=== PATIENT | female | born 1935 | race Caucasian/White ===

== ENCOUNTER → 2019-10-13 11:28 | Outpatient (BNVA) | payer MEDICARE, OTHER, SELFPAY | PROVIDERS: Family Provider Nurse Practitioner Family; PCP Nurse Practitioner Family; Visit Provider Internal Medicine Cardiovascular Disease | DX: E78.5 Hyperlipidemia, unspecified (principal) | CPT/HCPCS: 36415; 80048; 80061; 85025 ==

== ENCOUNTER 2019-10-20 15:03 | Outpatient (CLI) | payer MEDICARE, OTHER, SELFPAY ==
--- NOTE | 2019-10-24 22:48 | ONC FU_ITS ---
[facility] Patient Note Patient: Lilliam Truong Unit #: [id number]: 1935 Dictated By: Betty CooperDate of Visit: Oct 20, 2019 Onc MED Follow-Up/Prog Note Chief Complaint: Breast cancer. 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 She had presented in September 2010 with a lump in the right breast. She underwent bilateral diagnostic mammogram, which showed a 2.0 cm spiculated mass at the 8:30-9:00 position of the right breast. It was new compared to the previous study from 2005. The appearance was suspicious for malignancy. An ultrasound-guided core biopsy on 10/17/10 did confirm invasive ductal carcinoma, grade I/III. The tumor was ER/KS positive and negative for overexpression of HER2/jeaneth (0 by IHC). She underwent lumpectomy and sentinel axillary lymph node biopsy in January of 2011. Pathology from that specimen showed grade 3 invasive ductal carcinoma measuring 2.3 cm in greatest diameter. There was ductal carcinoma in situ, estimated at 5%. There was invasive carcinoma less than 1 mm to the deep margin and DCIS within 3 mm of the deep margin. One sentinel axillary lymph node showed no evidence of malignancy. The Oncotype DX was in the high intermediate range. She opted not to take adjuvant chemotherapy. She had started radiation to the right breast in March 2011, but she stopped within a very short time, I believe after the first treatment, because of perceived side effects. At that time she also had started adjuvant hormonal therapy with tamoxifen. She was not willing to take an aromatase inhibitor because of the risk of skeletal side effects. She unfortunately developed severe itching on the tamoxifen. I'm still not entirely certain what caused that, as the itching persisted for quite a while after she had stopped the medication. She eventually came to the conclusion that it was caused by a yeast infection, and she has managed it with dietary restrictions and probiotics. She has remained steadfastly opposed to taking an aromatase inhibitor, though I discussed with her on a number of occasions the fact that her breast cancer has not been adequately treated. She eventually did agree to a trial of therapy with raloxifene, but that was stopped because it made her breasts sore. She has since then just remained on observation. Her other medical illnesses include hypertension, hypercholesterolemia, and stage III chronic kidney disease. She has degenerative arthritis and osteoporosis. She also has been treated for gout in her left great toe. She is a nonsmoker. INTERIM HISTORY: She underwent a redo right total knee arthroplasty on 05/01/2017. She tolerated that procedure very well, although she subsequently did have some problems during her physical therapy. Her bilateral diagnostic mammogram on 11/17/2017 was BI-RADS 0, showing a focal asymmetry in the posterior midportion of the right breast measuring 8.2 mm. Right breast ultrasound showed scar formation in the 8:00 position 4 cm from the nipple, similar to the November 2016 study. There was no abnormality seen in the periareolar region of the right breast. Additional mammogram views of the right breast and limited breast ultrasound on 12/15/2017 was BI-RADS for, suspicious. Findings included persistent soft tissue nodule measuring 9.6 mm in the upper outer quadrant of the right breast. Ultrasound showed an irregular area of mixed echogenicity but predominantly decreased echogenicity measuring 1.0 x 1.4 cm corresponding to the mammographic abnormality. She was notified of the finding and immediately sought further evaluation with Dr. Hoff in [place]. She had additional evaluation at the breast center. Breast MRI was recommended, but for some reason it apparently was not able to be scheduled. Dr Edwards had seen her for a follow-up visit on 12/23/2017. At that point she declined biopsy. She later presented with increased back pain. A staging PET/CT on 04/10/2018 showed inflammatory periarticular activity at the right glenohumeral joint, but with no evidence for residual or recurrent malignancy. Bilateral breast activity was noted to be entirely unremarkable. Bilateral axillary lymph nodes appeared radiographically benign an FDG negative. There were no findings to indicate osseous metastatic disease. A 1 centimeter superior segment left lower lobe pulmonary nodule was FDG negative. It appeared benign, but close follow-up was recommended. After further follow-up by Dr. Hoff she ultimately did undergo ultrasound-guided core biopsy on 06/01/2018. Pathology showed ductal carcinoma in situ, nuclear grade 1. There was no invasive carcinoma identified. On 07/16/2018 she underwent excisional biopsy of the right breast mass under needle localization. Pathology on a cyst biopsy from the nasopharynx showed benign cystic cavity lined by respiratory type epithelium with associated lymphoid hyperplasia. There were no fungal elements identified. There was no evidence of malignancy. We did not receive any further records, but on her follow-up with Dr. Duncan she apparently had declined mastectomy. She apparently was also seen by medical oncologist, as she did start adjuvant hormonal therapy with anastrozole 1 mg daily, which is interesting, as she had adamantly refused it in my previous discussions with her. During followup she has had declining mobility due to problems with her right knee, and she has had an area of persistent nodularity in the right breast. There has been no documented progression of the breast cancer. Her surveillance right breast ultrasound on 04/13/2019 was BI-RADS 4c, moderate suspicion. Findings included an hypoechoic lesion at the 11:00 position of the right breast 3 cm from the nipple. It measured 5.0 x 2.8 x 4.2 mm. Ultrasound biopsy was recommended. A repeat diagnostic mammogram right unilateral mammogram and ultrasound at the [facility] in [place] on 05/26/2019 showed probably benign findings (BI-RADS category 3). A six-month follow-up study was recommended. Ms Truong presents today for an urgent, unscheduled visit for concerns of a knot in her left lower extremity. She states the knot is been there for a couple of weeks if not longer. She thinks that maybe it is getting smaller. She denies any pain with it. She is had no associated swelling redness warmth. There is been no lesion or drainage. She states Thursday she was just rubbing her leg and massaging it and felt the nodule. It is approximately large BB size. It is nontender on palpation. There is no redness or associated swelling. There is no lesion. It is only noted on palpation. There is no lower extremity swelling at all. She has good circulation her skin is warm and dry. She states she has no further problems. She has occasional hot flash which is normal. She states that she continues to have chronic hip and knee pain and that limits her mobility. She states she does can get around like she used to. She denies any fever or chills. States her appetite is good. She states she has good energy with this can act on due to the pain. She states her pain is controlled with her current pain medications however. She denies any other concerns besides the knot in her leg. Dr. Edwards did assess this area as well and agrees with the plan of care ???see below. Her ECOG is 3. Past Medical History: Cancer (breast) Past Surgical History: Tumor removal in 2018 Right knee replacement in 2017 Allergies: iodine contrast Medications: AmLODIPine Besylate 1 (5 mg) Tablet Oral daily Anastrozole 1 Tablet (of 1 mg) Oral daily Cholecalciferol 1 (5000 Units) Capsule Oral daily CoQ10 1 Capsule Oral daily Effexor XR 1 Tablet (of 150 mg) Capsule SR 24 HR Oral daily PRN Metoprolol Tartrate 1 (25 mg) Tablet Oral b.i.d. Multivitamin 1 Liquid Oral daily Probiotic Capsule Oral PRN Xlear Sinus Care [employer] Solution Nasal PRN Family History: Social History: Ms. Truong is and she is retired. Ms. Truong has never smoked. She has no history of drinking. Ms. Truong reports the following support systems: lives alone, lives in own house, and adequate transportation available for expected visits. Her diet consists of regular meals. She indicates her activity level as: daily activities. Review Of Symptoms: Constitutional Denies fevers, chills, night sweats, excessive fatigue or weight loss. Allergic/Immunologic No reactions. Eyes Denies significant visual changes. No diplopia. No amaurosis. ENMT Denies changes in hearing, sore throat, mouth sores, difficulty or changes in swallowing ability, and/or sinus drainage. Endocrine No diabetes, thyroid disease or hormone replacement. Denies hot flashes or night sweats. Hematologic/Lymphatic Denies easy bruising or bleeding. The patient denies any tender or palpable lymph nodes. Respiratory Denies dyspnea on exertion, chest pain. Denies orthopnea. Cardiovascular Denies anginal chest pain, palpitations or orthopnea. Gastrointestinal Denies nausea, vomiting, diarrhea, GI bleeding, or constipation. Denies change in bowel habits and/or stool color, no heartburn or early satiety. Genitourinary (F) No hematuria, hesitancy, incontinence, vaginal bleeding, discharge or other problems with urination. Musculoskeletal Denies joint pain, swelling or redness. No decreased range of motion. knot on lower left leg . Has been there for a couple of weeks- I think it may be getting smaller . Integumentary Denies chronic rashes, inflammation, ulcerations or skin changes. Neurologic Denies headache, blurred vision, and no areas of focal weakness or numbness. Normal for her gait-requires assistance due to chronic knee and hip pain. No sensory problems. Psychiatric Denies insomnia, depression, pza or mood swings. Vital Signs: Performed on Oct 20, 2019 15:34 Height - 65.00 in Weight - 214.0 lbs (HIGH) BSA - 2.04 sq.m BMI - 35.61 (HIGH) Temperature - 98.2 F (LOW) Pulse - 88 /min Respiration - 24 /min BP - 138/82 mm(hg) O2 Sat - 96 % Pain - 0,2 - Ambulatory/capable of all self-care, unable to perform any work activities. Up and about more than 50% of waking hours. (ECOG) Physical Examination: Constitutional Alert, oriented, no acute distress. Skin pink, warm and dry. Head Normocephalic; atraumatic. Eyes Conjunctivae and sclerae are clear and without icterus. Pupils are reactive and equal. Neck Supple without masses or thyromegaly. No jugular venous distension. Hematologic/Lymphatic No petechiae or purpura. No tender or palpable lymph nodes in the cervical, supraclavicular, or axillary area. Respiratory Lungs are clear to auscultation without rhonchi or wheezing. Cardiovascular Regular rate and rhythm of heart without murmurs,clicks, gallops or rubs. Abdomen Non-tender, non-distended, no masses, ascites. Good bowel sounds noted in all quads. No guarding or rebound tenderness. No pulsatile masses. Back/Spine Non-tender to palpation. Extremities No visible deformities, no cyanosis, clubbing or edema. Pulses 4+ and equal bilaterally. There is noted to be a large BB size nodule essentially superficial in the lower extremity-with no associated redness, swelling or drainage. It is not tender on palpation. There are no other abnormalities noted. Musculoskeletal No tenderness or swelling, normal range of motion without obvious weakness. Integumentary No rashes or lesions. Neurologic No sensory or motor deficits, normal cerebellar function, Presented in a wheelchair today but was able to transfer to chair and seat of her car without any signs of obvious/acute weakness. Psychiatric Alert and oriented times three. Coherent speech. Verbalizes understanding of our discussions today. Impression: 1. Patient with incompletely treated grade 3 infiltrating ductal carcinoma the right breast, stage IIA, ER/KS positive and HER-2/jeaneth negative. Oncotype DX was high intermediate range. She underwent lumpectomy and sentinel ight axillary lymph node biopsy in December 2010. She opted not to take adjuvant chemotherapy. She stopped radiation after the first treatment. 2. I did attempt adjuvant hormonal therapy, but she had poor tolerance for tamoxifen and she was unwilling to even try an aromatase inhibitor. 3. Her surveillance mammogram/ultrasound of the right breast in November 2017 was BI-RADS 0. Additional studies on 12/15/2017 were read as BI-RADS 4, suspicious, and biopsy was recommended. She was then seen by Dr. Hoff, and she had additional evaluation at the breast center in [place]. In May 2018 she was confirmed by core needle biopsy to have grade 1 ductal carcinoma in situ. 4. 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 It measured 1.0 cm. There was associated carcinoma in situ. The margins were negative, but with invasive carcinoma within 0.2 cm from the caudal and cranial margins. 5. She was recommended to undergo mastectomy, which she declined. 6. She then began adjuvant hormonal therapy with anastrozole 1 mg daily. Her other medical illnesses include: 7. Hypertension. 8. Hyperlipidemia. 9. Late stage III chronic kidney disease. 10. Degenerative arthritis 11. Osteoporosis and vitamin D deficiency. 12. Gout. 13. She underwent redo right total knee arthroplasty in April 2017. She has had ongoing problems with the right knee following that surgery. She has been taking adjuvant hormonal therapy with anastrozole 1 mg daily. She has been tolerating it well. She continues to have multiple complaints, the most significant being her right knee problems and her complaints of chronic mucus production which she attributes to her previous breast radiation. She has some persistent nodularity in the right breast just above the nipple areolar complex. A recent surveillance right breast ultrasound was BI-RADS 4c, moderate suspicion. She then had further evaluation at the breast center in [place]. Her repeat diagnostic mammogram/ultrasound was felt to show probably benign findings ( BI-RADS 3), and a 6-month follow-up study was recommended. Thus far she has been able to continue the anastrozole with acceptable toxicity, though she has ongoing problems with her right knee following the redo total knee arthroplasty in April 2017. She has recent onset of pain, swelling, and redness in the left foot, appearance of which was very suggestive of acute gout. That seems to have resolved. Her concern today is a knot on the left lower extremity. She states is been there for a week or 2 and she thinks maybe is getting some smaller. It is not red, warm or swollen. There is no sign of lesion or drainage. It is noted on palpation only. Plan: 1. Continue adjuvant hormonal therapy with anastrozole 1 mg daily. 2. Monitor nodule on lower leg and call if swellling, redness, pain or warmth arise. 3. Call if nodule increases in size. 4. Plan to see back as scheduled unless otherwise needed. 5. Ms Truong was instructed to call us in the interim if questions or problems arise. Signed By: Betty Cooper-, AOCNP Vinod Edwards MD <<Signature on File>>
== END 2019-10-20 15:04 | disposition home or self-care (01) ==
LOC: ONCMED 15:12
PROVIDERS: Family Provider Nurse Practitioner Family; PCP Nurse Practitioner Family; Visit Provider Nurse Practitioner
DX: R22.42 Localized swelling, mass and lump, left lower limb (principal); C50.511 Malignant neoplasm of lower-outer quadrant of right female breast; I12.9 Hypertensive chronic kidney disease with stage 1 through stage 4 chronic kidney disease, or unspecified chronic kidney disease; N18.3 Chronic kidney disease, stage 3 (moderate); E78.00 Pure hypercholesterolemia, unspecified; M19.90 Unspecified osteoarthritis, unspecified site; M81.0 Age-related osteoporosis without current pathological fracture; Z96.651 Presence of right artificial knee joint; G89.29 Other chronic pain; Z17.0 Estrogen receptor positive status [ER+]; Z79.811 Long term (current) use of aromatase inhibitors; Z92.3 Personal history of irradiation
CPT/HCPCS: G0463

== ENCOUNTER 2019-12-13 12:20 | Outpatient (CLI) | payer MEDICARE, OTHER, SELFPAY ==
--- NOTE | 2019-12-17 14:51 | ONC FU_ITS ---
Dr. Edwards Patient Follow-Up Note Patient: Lilliam Truong Unit #: [id number]: 1935 Dicatated By: Vinod Edwards M.D.Date of Visit:Dec 13, 2019 Onc Med Follow-up/Prog Note Chief Complaint: Breast cancer. 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 She had presented in September 2010 with a lump in the right breast. She underwent bilateral diagnostic mammogram, which showed a 2.0 cm spiculated mass at the 8:30-9:00 position of the right breast. It was new compared to the previous study from 2005. The appearance was suspicious for malignancy. An ultrasound-guided core biopsy on 10/17/10 did confirm invasive ductal carcinoma, grade I/III. The tumor was ER/NH positive and negative for overexpression of HER2/jeaneth (0 by IHC). She underwent lumpectomy and sentinel axillary lymph node biopsy in January of 2011. Pathology from that specimen showed grade 3 invasive ductal carcinoma measuring 2.3 cm in greatest diameter. There was ductal carcinoma in situ, estimated at 5%. There was invasive carcinoma less than 1 mm to the deep margin and DCIS within 3 mm of the deep margin. One sentinel axillary lymph node showed no evidence of malignancy. The Oncotype DX was in the high intermediate range. She opted not to take adjuvant chemotherapy. She had started radiation to the right breast in March 2011, but she stopped within a very short time, I believe after the first treatment, because of perceived side effects. At that time she also had started adjuvant hormonal therapy with tamoxifen. She was not willing to take an aromatase inhibitor because of the risk of skeletal side effects. She unfortunately developed severe itching on the tamoxifen. I'm still not entirely certain what caused that, as the itching persisted for quite a while after she had stopped the medication. She eventually came to the conclusion that it was caused by a yeast infection, and she has managed it with dietary restrictions and probiotics. She has remained steadfastly opposed to taking an aromatase inhibitor, though I discussed with her on a number of occasions the fact that her breast cancer has not been adequately treated. She eventually did agree to a trial of therapy with raloxifene, but that was stopped because it made her breasts sore. She has since then just remained on observation. Her other medical illnesses include hypertension, hypercholesterolemia, and stage III chronic kidney disease. She has degenerative arthritis and osteoporosis. She also has been treated for gout in her left great toe. She is a nonsmoker. INTERIM HISTORY: She underwent a redo right total knee arthroplasty on 05/01/2017. She tolerated that procedure very well, although she subsequently did have some problems during her physical therapy. Her bilateral diagnostic mammogram on 11/17/2017 was BI-RADS 0, showing a focal asymmetry in the posterior midportion of the right breast measuring 8.2 mm. Right breast ultrasound showed scar formation in the 8:00 position 4 cm from the nipple, similar to the November 2016 study. There was no abnormality seen in the periareolar region of the right breast. Additional mammogram views of the right breast and limited breast ultrasound on 12/15/2017 was BI-RADS for, suspicious. Findings included persistent soft tissue nodule measuring 9.6 mm in the upper outer quadrant of the right breast. Ultrasound showed an irregular area of mixed echogenicity but predominantly decreased echogenicity measuring 1.0 x 1.4 cm corresponding to the mammographic abnormality. She was notified of the finding and immediately sought further evaluation with Dr. Hoff in [place]. She had additional evaluation at the breast center. Breast MRI was recommended, but for some reason it apparently was not able to be scheduled. I had seen her for a follow-up visit on 12/23/2017. At that point she declined biopsy. She later presented with increased back pain. A staging PET/CT on 04/10/2018 showed inflammatory periarticular activity at the right glenohumeral joint, but with no evidence for residual or recurrent malignancy. Bilateral breast activity was noted to be entirely unremarkable. Bilateral axillary lymph nodes appeared radiographically benign an FDG negative. There were no findings to indicate osseous metastatic disease. A 1 centimeter superior segment left lower lobe pulmonary nodule was FDG negative. It appeared benign, but close follow-up was recommended. After further follow-up by Dr. Hoff she ultimately did undergo ultrasound-guided core biopsy on 06/01/2018. Pathology showed ductal carcinoma in situ, nuclear grade 1. There was no invasive carcinoma identified. On 07/16/2018 she underwent excisional biopsy of the right breast mass under needle localization. Pathology on a cyst biopsy from the nasopharynx showed benign cystic cavity lined by respiratory type epithelium with associated lymphoid hyperplasia. There were no fungal elements identified. There was no evidence of malignancy. I did not receive any further records, but on her follow-up with Dr. Duncan she apparently had declined mastectomy. She apparently was also seen by medical oncologist, as she did start adjuvant hormonal therapy with anastrozole 1 mg daily, which is interesting, as she had adamantly refused it in my previous discussions with her. During followup she has had declining mobility due to problems with her right knee, and she has had an area of persistent nodularity in the right breast. There has been no documented progression of the breast cancer. Her surveillance right breast ultrasound on 04/13/2019 was BI-RADS 4c, moderate suspicion. Findings included an hypoechoic lesion at the 11:00 position of the right breast 3 cm from the nipple. It measured 5.0 x 2.8 x 4.2 mm. Ultrasound biopsy was recommended. A repeat diagnostic mammogram right unilateral mammogram and ultrasound at the [facility] in [place] on 05/26/2019 showed probably benign findings (BI-RADS category 3). A six-month follow-up study was recommended. She is seen for a follow-up visit. She has been feeling okay, though she continues to have very limited activity due to her right knee pain, and she says she has lost stamina. It is getting her more depressed. Her ECOG score is 3. She says she is eating only about half as much as she used to. She does not have fever or night sweats. She still complains that the mucus is driving her crazy. She continues to cough up thick white sputum. She does not complain of shortness of breath. She has had a little bit of chest pain. She has noticed that her heart rate has been faster. She has no GI complaints. She has had some episodes of bladder incontinence while she is lying down. In addition to the knee pain, she also has some pain in the right shoulder. She has no focal neurologic symptoms. Medications: AmLODIPine Besylate 1 (5 mg) Tablet Oral daily, Anastrozole 1 Tablet (of 1 mg) Oral daily, Cholecalciferol 1 (5000 Units) Capsule Oral daily, CoQ10 1 Capsule Oral daily, Effexor XR 1 Tablet (of 150 mg) Capsule SR 24 HR Oral daily PRN, Metoprolol Tartrate 1 (25 mg) Tablet Oral b.i.d., Multivitamin 1 Liquid Oral daily, Probiotic Capsule Oral PRN, Xlear Sinus Care Cabery Solution Nasal PRN Allergies: iodine contrast Review of Systems: Constitutional - Her energy is low. She has limited activity due to her knee pain. Her appetite is okay. Her weight is down 5 pounds from last visit. No fever, chills, hot flashes, or night sweats. ECOG score is 3, ENMT - She has constant drainage described as thick white sputum. No mouth sores. She has excessive secretions. No sore throat or difficulty swallowing, Hematologic/Lymphatic - She bruises easily, Respiratory - No shortness of breath. No cough. No pleuritic pain or hemoptysis, Cardiovascular - She has had a little bit left sided chest pain and she feels like her heart rate is higher than normal, Gastrointestinal - No nausea or vomiting. No heartburn or acid reflux. No diarrhea or constipation. No blood in the stool or black stools, Genitourinary (F) - No dysuria or hematuria. No urinary frequency. She has had some episodes of incontinence while lying down, Musculoskeletal - She has pain in her right knee and in her left shoulder, Integumentary - No skin complications, Neurologic - No headache or dizziness. No numbness/paresthesias or other focal neurologic symptoms, Psychiatric - No anxiety. She is more depressed. No insomnia. Vital Signs: Performed on Dec 13, 2019 12:35 Height - 65.00 in Weight - 209.8 lbs (LOW) BSA - 2.02 sq.m BMI - 34.91 (HIGH) Temperature - 99.1 F (HIGH) Pulse - 85 /min Respiration - 24 /min BP - 130/70 mm(hg) O2 Sat - 97 % Pain - 0 Physical Examination: Constitutional - She looks pretty good generally, Eyes - Sclerae nonicteric. Conjunctivae clear, ENMT - No lesions noted in the oral cavity, Hematologic/Lymphatic - No cervical or clavicular adenopathy, Respiratory - Lungs are clear, Cardiovascular - Heart rhythm is regular. There is a II/ systolic murmur. There is no gallop or rub noted, Breasts - There is an area of linear thickening in the right breast just superior to the nipple areolar complex, which I suspect is related to prior surgery. It does not feel suspicious for a mass. There are no other breast masses noted. There is no axillary adeopathy noted, Abdomen - Soft. Liver and spleen are not enlarged. There is no abdominal mass or ascites noted and there is no inguinal adenopathy, Extremities - No edema. Dorsalis pedis pulses are palpable bilaterally, Neurologic - No focal neurologic deficits noted. Impression: 1. Patient with incompletely treated grade 3 infiltrating ductal carcinoma the right breast, stage IIA, ER/NH positive and HER-2/jeaneth negative. Oncotype DX was high intermediate range. She underwent lumpectomy and sentinel ight axillary lymph node biopsy in December 2010. She opted not to take adjuvant chemotherapy. She stopped radiation after the first treatment. 2. I did attempt adjuvant hormonal therapy, but she had poor tolerance for tamoxifen and she was unwilling to even try an aromatase inhibitor. 3. Her surveillance mammogram/ultrasound of the right breast in November 2017 was BI-RADS 0. Additional studies on 12/15/2017 were read as BI-RADS 4, suspicious, and biopsy was recommended. She was then seen by Dr. Hoff, and she had additional evaluation at the breast center in [place]. In May 2018 she was confirmed by core needle biopsy to have grade 1 ductal carcinoma in situ. 4. 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 It measured 1.0 cm. There was associated carcinoma in situ. The margins were negative, but with invasive carcinoma within 0.2 cm from the caudal and cranial margins. 5. She was recommended to undergo mastectomy, which she declined. 6. She then began adjuvant hormonal therapy with anastrozole 1 mg daily. Her other medical illnesses include: 7. Hypertension. 8. Hyperlipidemia. 9. Late stage III chronic kidney disease. 10. Degenerative arthritis 11. Osteoporosis and vitamin D deficiency. 12. Gout. 13. She underwent redo right total knee arthroplasty in April 2017. She has had ongoing problems with the right knee following that surgery. She has been taking adjuvant hormonal therapy with anastrozole 1 mg daily. She has been tolerating it well. She continues to have multiple complaints, the most significant being her right knee problems and her complaints of chronic mucus production which she attributes to her previous breast radiation. She has some persistent nodularity in the right breast just above the nipple areolar complex. A recent surveillance right breast ultrasound was BI-RADS 4c, moderate suspicion. She then had further evaluation at the breast center in [place]. Her repeat diagnostic mammogram/ultrasound was felt to show probably benign findings ( BI-RADS 3), and a 6-month follow-up study was recommended. During followup she has ongoing problems with her right knee following the redo total knee arthroplasty in April 2017. It has severely limited her activity and she has been showing gradual decline in her performance status. She also has required treatment for acute gout. However, she has been able to tolerate the anastrozole with acceptable toxicity, and thus far there has been no evidence of recurrence/progression of the breast cancer. Plan: She continues adjuvant hormonal therapy with anastrozole 1 mg daily. She will have repeat mammogram later this week. She will have further evaluation only as indicated. I will tentatively plan a follow-up visit in 3 months. Signed By: Vinod Edwards M.D. <<Signature on File>>
== END 2019-12-13 12:21 | disposition home or self-care (01) ==
LOC: ONCMED 12:25
PROVIDERS: Family Provider Nurse Practitioner Family; PCP Nurse Practitioner Family; Visit Provider Internal Medicine Medical Oncology
DX: C50.511 Malignant neoplasm of lower-outer quadrant of right female breast (principal); Z17.0 Estrogen receptor positive status [ER+]; I12.9 Hypertensive chronic kidney disease with stage 1 through stage 4 chronic kidney disease, or unspecified chronic kidney disease; N18.3 Chronic kidney disease, stage 3 (moderate); E78.00 Pure hypercholesterolemia, unspecified; M19.90 Unspecified osteoarthritis, unspecified site; M81.0 Age-related osteoporosis without current pathological fracture; F32.9 Major depressive disorder, single episode, unspecified; E78.5 Hyperlipidemia, unspecified; E55.9 Vitamin D deficiency, unspecified; M10.9 Gout, unspecified; Z79.811 Long term (current) use of aromatase inhibitors; Z92.3 Personal history of irradiation; Z96.651 Presence of right artificial knee joint
CPT/HCPCS: 99214

== ENCOUNTER 2019-12-15 11:02 | Outpatient (CLI) | payer MEDICARE, OTHER, SELFPAY ==
--- NOTE | 2019-12-15 11:19 | MM_ITS ---
WS: [id number] BILATERAL DIGITAL DIAGNOSTIC MAMMOGRAM MAMMOGRAPHY WITH CAD CLINICAL INFORMATION: HX OF BREAST CA;R92.8OTHER ABNL/INCONCL FINDING ON IMAG BANDAR HISTORY: Prior history of breast biopsy and surgery right breast. COMPARISON: December 15, 2017 TECHNIQUE: Bilateral CC, MLO, and ML views. FINDINGS: Scattered fibroglandular densities bilaterally. Several asymmetric nodular densities right breast sim ilar in appearance to 2018 along the posterior nipple line. Left breast is unchanged. Lucent centered calcifications. Ultrasound right breast is pending ULTRASOUND BREAST RIGHT TECHNIQUE: Ultrasound right breast focused area of concern. CLINICAL INFORMATION: HX OF BREAST CA;R92.8OTHER ABNL/INCONCL FINDING ON IMAG BANDAR COMPARISON: 2017 and FINDINGS: Ultrasound right breast upper-outer quadrant. At the 10:00 position. Again seen is irregular hypoecho ic lesion measuring 1.5 x 0.5 x 1.0 CM. This appears increased in size compared to 2019 and recommend further evaluation with ultrasound-guided biopsy given suspicious appearance. MM/[id number] IMPRESSION: BI-RADS: 4C-Suspicious: Moderate FOLLOW UP: US Guided Biopsy Recommended
== END 2019-12-15 11:03 | disposition home or self-care (01) ==
LOC: RADSHAW 11:04
PROVIDERS: Family Provider Nurse Practitioner Family; PCP Nurse Practitioner Family; Visit Provider Internal Medicine Medical Oncology
DX: R92.8 Other abnormal and inconclusive findings on diagnostic imaging of breast (principal); Z85.3 Personal history of malignant neoplasm of breast; N64.9 Disorder of breast, unspecified
CPT/HCPCS: 77066

== ENCOUNTER 2019-12-19 09:12 | Outpatient (CLI) | payer MEDICARE, OTHER, SELFPAY ==
--- NOTE | 2019-12-19 | US_ITS ---
BILATERAL DIGITAL DIAGNOSTIC MAMMOGRAM MAMMOGRAPHY WITH CAD CLINICAL INFORMATION: HX OF BREAST CA;R92.8OTHER ABNL/INCONCL FINDING ON IMAG BANDAR HISTORY: Prior history of breast biopsy and surgery right breast. COMPARISON: December 15, 2017 TECHNIQUE: Bilateral CC, MLO, and ML views. FINDINGS: Scattered fibroglandular densities bilaterally. Several asymmetric nodular densities right breast similar in appearance to 2018 along the posterior nipple line. Left breast is unchanged. Lucent centered calcifications. Ultrasound right breast is pending ULTRASOUND BREAST RIGHT TECHNIQUE: Ultrasound right breast focused area of concern. CLINICAL INFORMATION: HX OF BREAST CA;R92.8OTHER ABNL/INCONCL FINDING ON IMAG BANDAR COMPARISON: 2017 and FINDINGS: Ultrasound right breast upper-outer quadrant. At the 10:00 position. Again seen is irregular hypoechoic lesion measuring 1.5 x 0.5 x 1.0 CM. This appears increased in size compared to 2019 and recommend further evaluation with ultrasound-guided biopsy given suspicious appearance. IMPRESSION: BI-RADS: 4C-Suspicious: Moderate FOLLOW UP: US Guided Biopsy Recommended MTDD
== END 2019-12-19 09:13 | disposition home or self-care (01) ==
LOC: RAD 09:16
PROVIDERS: Family Provider Nurse Practitioner Family; PCP Nurse Practitioner Family; Visit Provider Internal Medicine Medical Oncology
DX: N63.11 Unspecified lump in the right breast, upper outer quadrant (principal); Z85.3 Personal history of malignant neoplasm of breast
CPT/HCPCS: 76642

== ENCOUNTER 2020-03-14 12:23 | Outpatient (CLI) | payer MEDICARE, OTHER, SELFPAY ==
[2020-03-14 12:44] LABS: Basophils # 0.1 10^3/uL (0.0-0.1); Basophils % 0.7 %; Eosinophils # 0.1 10^3/uL (0.0-0.8); Eosinophils % 1.3 %; Hematocrit 41.2 % (37.0-47.0); Hemoglobin 12.8 g/dL (11.5-15.3); Lymphocytes # 1.5 10^3/uL (0.8-4.8); Lymphocytes % 18.6 %; Mean Corpuscular HGB Conc 31.1 g/dL (30.0-36.0); Mean Corpuscular Hemoglobin 31.5 pg (28.0-34.0); Mean Corpuscular Volume 101.5 fL (81-99); Mean Platelet Volume 10.2 fL (7.4-10.4); Monocytes # 0.7 10^3/uL (0.2-0.9); Monocytes % 8.6 %; Neutrophils # 5.8 10^3/uL (1.8-7.7); Neutrophils % 70.4 %; Nucleated Red Blood Cells % 0 %; Platelet Count 289 10^3/cmm (130-400); Red Blood Count 4.06 10^6/uL (4.1-5.3); Red Cell Distribution Width 13.5 % (12.1-15.1); White Blood Count 8.2 10^3/uL (4.0-10.0)
[2020-03-14 13:20] LABS: 25 Hydroxy Vitamin D 32 ng/mL (30-100); Alanine Aminotransferase 13 U/L (0-33); Albumin Level 3.8 g/dL (3.5-5.2); Alkaline Phosphatase 51 IU/L (35-105); Anion Gap 15.2 (5-19); Aspartate Amino Transferase 18 U/L (0-32); Blood Urea Nitrogen 16 mg/dL (8-23); Calcium 9.6 mg/dL (8.5-10.5); Carbon Dioxide 27 mmol/L (22-29); Chloride 104 mmol/L (98-107); Globulin 3.6 g/dL (1.3-4.6); Glucose 113 mg/dL (65-115); Osmolality Calculated 291 mOsm/kg (285-295); Potassium 4.2 mmol/L (3.5-5.1); Sodium 142 mmol/L (136-145); Total Bilirubin 0.3 mg/dL (0.15-1.2); Total Protein 7.4 g/dL (6.6-8.7)
--- NOTE | 2020-03-17 10:51 | ONC FU_ITS ---
Dr. Edwards Patient Follow-Up Note Patient: Lilliam Truong Unit #: [id number]: 1935 Dicatated By: Vinod Edwards M.D.Date of Visit:Mar 14, 2020 Onc Med Follow-up/Prog Note Chief Complaint: Breast cancer. 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 She had presented in September 2010 with a lump in the right breast. She underwent bilateral diagnostic mammogram, which showed a 2.0 cm spiculated mass at the 8:30-9:00 position of the right breast. It was new compared to the previous study from 2005. The appearance was suspicious for malignancy. An ultrasound-guided core biopsy on 10/17/10 did confirm invasive ductal carcinoma, grade I/III. The tumor was ER/NC positive and negative for overexpression of HER2/jeaneth (0 by IHC). She underwent lumpectomy and sentinel axillary lymph node biopsy in January of 2011. Pathology from that specimen showed grade 3 invasive ductal carcinoma measuring 2.3 cm in greatest diameter. There was ductal carcinoma in situ, estimated at 5%. There was invasive carcinoma less than 1 mm to the deep margin and DCIS within 3 mm of the deep margin. One sentinel axillary lymph node showed no evidence of malignancy. The Oncotype DX was in the high intermediate range. She opted not to take adjuvant chemotherapy. She had started radiation to the right breast in March 2011, but she stopped within a very short time, I believe after the first treatment, because of perceived side effects. At that time she also had started adjuvant hormonal therapy with tamoxifen. She was not willing to take an aromatase inhibitor because of the risk of skeletal side effects. She unfortunately developed severe itching on the tamoxifen. I'm still not entirely certain what caused that, as the itching persisted for quite a while after she had stopped the medication. She eventually came to the conclusion that it was caused by a yeast infection, and she has managed it with dietary restrictions and probiotics. She has remained steadfastly opposed to taking an aromatase inhibitor, though I discussed with her on a number of occasions the fact that her breast cancer has not been adequately treated. She eventually did agree to a trial of therapy with raloxifene, but that was stopped because it made her breasts sore. She has since then just remained on observation. Her other medical illnesses include hypertension, hypercholesterolemia, and stage III chronic kidney disease. She has degenerative arthritis and osteoporosis. She also has been treated for gout in her left great toe. She is a nonsmoker. INTERIM HISTORY: She underwent a redo right total knee arthroplasty on 05/01/2017. She tolerated that procedure very well, although she subsequently did have some problems during her physical therapy. Her bilateral diagnostic mammogram on 11/17/2017 was BI-RADS 0, showing a focal asymmetry in the posterior midportion of the right breast measuring 8.2 mm. Right breast ultrasound showed scar formation in the 8:00 position 4 cm from the nipple, similar to the November 2016 study. There was no abnormality seen in the periareolar region of the right breast. Additional mammogram views of the right breast and limited breast ultrasound on 12/15/2017 was BI-RADS for, suspicious. Findings included persistent soft tissue nodule measuring 9.6 mm in the upper outer quadrant of the right breast. Ultrasound showed an irregular area of mixed echogenicity but predominantly decreased echogenicity measuring 1.0 x 1.4 cm corresponding to the mammographic abnormality. She was notified of the finding and immediately sought further evaluation with Dr. Hoff in [place]. She had additional evaluation at the breast center. Breast MRI was recommended, but for some reason it apparently was not able to be scheduled. I had seen her for a follow-up visit on 12/23/2017. At that point she declined biopsy. She later presented with increased back pain. A staging PET/CT on 04/10/2018 showed inflammatory periarticular activity at the right glenohumeral joint, but with no evidence for residual or recurrent malignancy. Bilateral breast activity was noted to be entirely unremarkable. Bilateral axillary lymph nodes appeared radiographically benign an FDG negative. There were no findings to indicate osseous metastatic disease. A 1 centimeter superior segment left lower lobe pulmonary nodule was FDG negative. It appeared benign, but close follow-up was recommended. After further follow-up by Dr. Hoff she ultimately did undergo ultrasound-guided core biopsy on 06/01/2018. Pathology showed ductal carcinoma in situ, nuclear grade 1. There was no invasive carcinoma identified. On 07/16/2018 she underwent excisional biopsy of the right breast mass under needle localization. Pathology on a cyst biopsy from the nasopharynx showed benign cystic cavity lined by respiratory type epithelium with associated lymphoid hyperplasia. There were no fungal elements identified. There was no evidence of malignancy. I did not receive any further records, but on her follow-up with Dr. Duncan she apparently had declined mastectomy. She apparently was also seen by medical oncologist, as she did start adjuvant hormonal therapy with anastrozole 1 mg daily, which is interesting, as she had adamantly refused it in my previous discussions with her. During followup she has had declining mobility due to problems with her right knee, and she has had an area of persistent nodularity in the right breast. There has been no documented progression of the breast cancer. Her surveillance right breast ultrasound on 04/13/2019 was BI-RADS 4c, moderate suspicion. Findings included an hypoechoic lesion at the 11:00 position of the right breast 3 cm from the nipple. It measured 5.0 x 2.8 x 4.2 mm. Ultrasound biopsy was recommended. A repeat diagnostic mammogram right unilateral mammogram and ultrasound at the [facility] in [place] on 05/26/2019 showed probably benign findings (BI-RADS category 3). A six-month follow-up study was recommended. She is seen for a follow-up visit. She has been feeling about the same. She has very limited activity because of her knee problems. As result, she has lost strength and stamina. Her ECOG score is 3. She has good appetite. She has not had fever, night sweats, or hot flashes. She continues to have problems with mucus in her throat and associated cough. She does not complain of shortness of breath or chest pain. She has no GI or complaints. Lately she has been having lower back pain with activity, and she also has pain in her right shoulder. She does not complain of headache or dizziness. She has no focal neurologic symptoms. She has been having itching in the anterior tibial area of her right leg. Medications: AmLODIPine Besylate 1 (5 mg) Tablet Oral daily, Anastrozole 1 Tablet (of 1 mg) Oral daily, Cholecalciferol 1 (5000 Units) Capsule Oral daily, CoQ10 1 Capsule Oral daily, Effexor XR 1 Tablet (of 150 mg) Capsule SR 24 HR Oral daily PRN, Metoprolol Tartrate 1 (25 mg) Tablet Oral b.i.d., Multivitamin 1 Liquid Oral daily, Probiotic Capsule Oral PRN, Vitamin D3 1 Tablet Oral daily, Xlear Sinus Care [place] Solution Nasal PRN Allergies: iodine contrast Review of Systems: Constitutional - She has no energy. She has very limited activity. 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 Her appetite is good and weight is down about 4 pounds. No fever, night sweats, or hot flashes. ECOG score is 3, ENMT - No sinus congestion/drainage. No mouth sores. No sore throat or difficulty swallowing, Hematologic/Lymphatic - No abnormal bruising or bleeding, Respiratory - No shortness of breath. She still has cough associated with mucus in her throat. No pleuritic pain or hemoptysis, Cardiovascular - No angina pain. No palpitations, Gastrointestinal - No nausea or vomiting. No heartburn or acid reflux. No diarrhea or constipation. No blood in the stool or black stools, Genitourinary (F) - No dysuria or hematuria. No urinary frequency. No urgency or incontinence, Musculoskeletal - She has pain in her knees. Lately she has been having low back pain with activity, and she also has pain in her right shoulder, Integumentary - No skin complications, Neurologic - No headache or dizziness. No numbness or tingling. No other focal neurologic symptoms, Psychiatric - No anxiety or depression. No insomnia. Vital Signs: Performed on Mar 14, 2020 13:59 Height - 65.00 in Weight - 205.2 lbs (LOW) BSA - 2.00 sq.m BMI - 34.15 (HIGH) Temperature - 98.7 F Pulse - 64 /min Respiration - 24 /min BP - 138/66 mm(hg) O2 Sat - 97 % Pain - 0 Physical Examination: Constitutional - She has poor mobility. She othewise looks pretty good generally, Eyes - Sclerae nonicteric. Conjunctivae clear, ENMT - No lesions noted in the oral cavity, Hematologic/Lymphatic - No cervical or clavicular adenopathy, Respiratory - Lungs are clear, Cardiovascular - Heart rhythm is regular. There is a II/ systolic murmur. There is no gallop or rub noted, Breasts - There is just a very small residual nodule palpable in the upper outer right breast near the nipple areolar complex. There is no other breast mass noted. There is no axillary adenopathy, Abdomen - Soft. Liver and spleen are not enlarged. There is no abdominal mass or ascites noted and there is no inguinal adenopathy, Extremities - No edema. Dorsalis pedis pulses are palpable bilaterally, Integumentary - There is no apparent skin eruption, Neurologic - No focal neurologic deficits noted. Lab/Imaging: Test performed on Mar 14, 2020 12:34 Sodium 142 mmol/L Vitamin D (25-Hydroxy), Total 32 ng/mL Potassium 4.2 mmol/L Chloride 104 mmol/L CO2 27 mmol/L Anion Gap 15.2 BUN 16 mg/dL Creatinine 1.9 mg/dL Cr Clearance (Est) 32.97 mL/min Glucose 113 mg/dL Calcium 9.6 mg/dL Protein, Total 7.4 g/dL Albumin 3.8 g/dL Globulin 3.6 g/dL Bilirubin, Total 0.3 mg/dL ALT (SGPT) 13 U/L AST (SGOT) 18 U/L Alkaline Phosphatase 51 IU/L WBC 8.2 10 3/uL RBC 4.06 10 6/uL HGB 12.8 g/dL HCT 41.2 % MCV 101.5 fL MCH 31.5 pg MCHC 31.1 g/dL RDW 13.5 % Platelet Count 289 10 3/cmm MPV 10.2 fL Neutrophils 5.8 10 3/uL Lymphocytes 1.5 10 3/uL Monocytes 0.7 10 3/uL Eosinophils 0.1 10 3/uL Basophils 0.1 10 3/uL Neutrophil % 70.4 % Lymphocyte % 18.6 % Monocyte % 8.6 % Eosinophil % 1.3 % Basophils % 0.7 % NRBC % 0 % Impression: 1. Patient with incompletely treated grade 3 infiltrating ductal carcinoma the right breast, stage IIA, ER/NC positive and HER-2/jeaneth negative. Oncotype DX was high intermediate range. She underwent lumpectomy and sentinel ight axillary lymph node biopsy in December 2010. She opted not to take adjuvant chemotherapy. She stopped radiation after the first treatment. 2. I did attempt adjuvant hormonal therapy, but she had poor tolerance for tamoxifen and she was unwilling to even try an aromatase inhibitor. 3. Her surveillance mammogram/ultrasound of the right breast in November 2017 was BI-RADS 0. Additional studies on 12/15/2017 were read as BI-RADS 4, suspicious, and biopsy was recommended. She was then seen by Dr. Hoff, and she had additional evaluation at the breast center in [place]. In May 2018 she was confirmed by core needle biopsy to have grade 1 ductal carcinoma in situ. 4. 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 It measured 1.0 cm. There was associated carcinoma in situ. The margins were negative, but with invasive carcinoma within 0.2 cm from the caudal and cranial margins. 5. She was recommended to undergo mastectomy, which she declined. 6. She then began adjuvant hormonal therapy with anastrozole 1 mg daily. Her other medical illnesses include: 7. Hypertension. 8. Hyperlipidemia. 9. Late stage III chronic kidney disease. 10. Degenerative arthritis 11. Osteoporosis and vitamin D deficiency. 12. Gout. 13. She underwent redo right total knee arthroplasty in April 2017. She has had ongoing problems with the right knee following that surgery. She has been taking adjuvant hormonal therapy with anastrozole 1 mg daily. She has been tolerating it well. She continues to have multiple complaints, the most significant being her right knee problems and her complaints of chronic mucus production which she attributes to her previous breast radiation. She has some persistent nodularity in the right breast just above the nipple areolar complex. A recent surveillance right breast ultrasound was BI-RADS 4c, moderate suspicion. She then had further evaluation at the breast center in [place]. Her repeat diagnostic mammogram/ultrasound was felt to show probably benign findings ( BI-RADS 3), and a 6-month follow-up study was recommended. During followup she had ongoing problems with her right knee following the redo total knee arthroplasty in April 2017. Associated with that she has had very limited activity and she has been showing gradual decline in her performance status. During that time she also required treatment for acute gout. However, she has been able to tolerate the anastrozole with acceptable toxicity, and thus far there is been no obvious recurrence/progression of the breast cancer. Plan: She continues adjuvant hormonal therapy with anastrozole 1 mg daily. I will tentatively plan a follow-up visit in 3 months. Signed By: Vinod Edwards M.D. <<Signature on File>>
== END 2020-03-14 12:24 | disposition home or self-care (01) ==
LOC: ONCMED 12:28
PROVIDERS: Visit Provider Internal Medicine Medical Oncology
DX: C50.511 Malignant neoplasm of lower-outer quadrant of right female breast (principal); Z17.0 Estrogen receptor positive status [ER+]; M1A.0720 Idiopathic chronic gout, left ankle and foot, without tophus (tophi); R22.42 Localized swelling, mass and lump, left lower limb; I10 Essential (primary) hypertension; E78.5 Hyperlipidemia, unspecified; N18.3 Chronic kidney disease, stage 3 (moderate); M19.90 Unspecified osteoarthritis, unspecified site; M81.0 Age-related osteoporosis without current pathological fracture; E55.9 Vitamin D deficiency, unspecified; Z96.651 Presence of right artificial knee joint; Z79.818 Long term (current) use of other agents affecting estrogen receptors and estrogen levels
CPT/HCPCS: 80053; 82306; 85025; 99214

== ENCOUNTER 2020-05-22 14:44 | Outpatient (CLI) | payer MEDICARE, OTHER, SELFPAY ==
--- NOTE | 2020-05-22 15:04 | CT_ITS ---
WS: [id number] CT CHEST TECHNIQUE: Noncontrast CT of the chest with coronal and sagittal reformatted images. CLINICAL INFORMATION: MASS AND LUMP LEFT LOWER RIB, LUNG PAIN, HX BREAST CANCER COMPARISON: CT chest and DLP: 1011.[address] scans at [facility] use at least one of these dose optimization techniques: automat ed exposure control; mA and/or kV adjustment per patient size (includes targeted exams where dose is matched to clinical indication); or iterative reconstruction. FINDINGS: Mild chronic emphysematous changes. No acute pulmonary infiltrates. Again seen are several noncalcifi ed pulmonary nodules the largest left lower lobe infrahilar measuring 10 mm unchanged. Additional tin y noncalcified subcentimeter pulmonary nodules in the right lower lobe and right upper lobe measuring 2 to 3 mm unchanged. No other suspicious pulmonary parenchymal opacities. Subsegmental atelectasis left lower lobe. Chronic pleural thickening left lower lobe unchanged. Mild aortic calcification. Normal caliber thoracic aorta. Coronary calcification. Pericardial thickening i s unchanged. No axillary lymphadenopathy. No mediastinal or hilar lymphadenopathy. Adrenal glands are normal. Small esophageal hiatal hernia. Thoracic scoliosis. Chronic left rib fract ures with callus formation. CT/CT chest wo con [id number] IMPRESSION: 1. Stable noncalcified pulmonary nodules largest in the superior segment left lower lobe measuring 10 mm. This is unchanged since 2018. 2. Additional tiny subcentimeter pulmonary nodules in the right lower lobe and right upper lobe some in a subpleural location are unchanged. 3. Subsegmental atelectasis left lower lobe. 4. Stable mild pericardial thickening.
== END 2020-05-22 14:45 | disposition home or self-care (01) ==
LOC: RADWPI 14:51
PROVIDERS: Visit Provider Nurse Practitioner
DX: C50.511 Malignant neoplasm of lower-outer quadrant of right female breast (principal); R91.8 Other nonspecific abnormal finding of lung field; J98.11 Atelectasis
CPT/HCPCS: 71250

== ENCOUNTER 2020-06-28 11:22 | Outpatient (CLI) | payer MEDICARE, OTHER, SELFPAY ==
--- NOTE | 2020-06-28 11:00 | USCV_ITS ---
Lilliam Truong Age: 85 Gender: F : 1935 Exam Date: 06/28/2020 11:56 Ordering Phys: Adalberto Rogers M.D ([email or web address]) Technologist: [email or web address] Angel Exam Location: [facility] [place] Indication: CCA STENOSIS Risk Factors: Previous Vascular Surgery: Right Brachial BP: / Left Brachial BP: / Right Left Velocity (cm/s) Spectral Plaque Velocity (cm/s) Spectral Plaque Syst/Diast Broadening Syst/Diast Broadening 44.00/ 8.00 Prox CCA 65.10 / 14.30 43.00/ 7.50 Hetro Mid CCA 56.30 / 12.70 Hetro 44.70/ 8.00 Hetro Distal CCA 48.40 / 14.30 Hetro 45.20/ 10.30 Hetro Prox ICA 131.80/ 26.40 Hetro 58.70/ 11.10 Hetro Mid ICA 57.10 / 11.90 Hetro 54.80/ 7.90 Hetro Distal ICA 61.10 / 17.50 Hetro 47.60 ECA 41.40 1.31 ICA/CCA 2.03 Antegrade Vertebral Antegrade 35.80/ 7.80 cm/s 45.20/ 15.90 cm/s Bi Subclavian Tri 69.90 92.90 CONCLUSIONS Right ICA stenosis <50%. Mild atheromatous plaque right carotid bulb/ICA. Left ICA stenosis 50-69%. Moderate atheromatous plaque left carotid bulb/ICA. Normal antegrade Doppler flow noted in the right vertebral artery. Normal antegrade Doppler flow noted in the left vertebral artery. Dwight Montague MD (Electronically Signed) Final Date: 28 June 2020 15:49 S
== END 2020-06-28 11:23 | disposition home or self-care (01) ==
LOC: RAD 11:29
PROVIDERS: PCP Family Medicine; Visit Provider Internal Medicine
DX: I65.23 Occlusion and stenosis of bilateral carotid arteries (principal)
CPT/HCPCS: 93880

== ENCOUNTER 2020-06-28 13:46 | Outpatient (CLI) | payer MEDICARE, OTHER, SELFPAY ==
[2020-06-28 14:28] LABS: Basophils # 0.1 10^3/uL (0.0-0.1); Basophils % 0.8 %; Eosinophils # 0.1 10^3/uL (0.0-0.8); Eosinophils % 1.4 %; Lymphocytes # 1.4 10^3/uL (0.8-4.8); Lymphocytes % 15.9 %; Mean Corpuscular Hemoglobin 31.6 pg (28.0-34.0); Mean Corpuscular Volume 101.9 fL (81-99); Mean Platelet Volume 10.7 fL (7.4-10.4); Monocytes # 0.7 10^3/uL (0.2-0.9); Monocytes % 7.3 %; Neutrophils # 6.71 10^3/uL (1.8-7.7); Neutrophils % 74.3 %; Nucleated Red Blood Cells % 0 %; Platelet Count 215 10^3/cmm (130-400); Red Blood Count 4.12 10^6/uL (4.1-5.3)
[2020-06-28 16:17] LABS: Alanine Aminotransferase 11 U/L (0-33); Albumin Level 3.8 g/dL (3.5-5.2); Alkaline Phosphatase 50 IU/L (35-105); Anion Gap 14.9 (5-19); Aspartate Amino Transferase 17 U/L (0-32); Blood Urea Nitrogen 13 mg/dL (8-23); Calcium 8.7 mg/dL (8.5-10.5); Carbon Dioxide 24 mmol/L (22-29); Chloride 107 mmol/L (98-107); Globulin 3.4 g/dL (1.3-4.6); Glucose 132 mg/dL (65-115); Osmolality Calculated 296 mOsm/kg (285-295); Potassium 3.9 mmol/L (3.5-5.1); Sodium 142 mmol/L (136-145); Total Bilirubin 0.3 mg/dL (0.15-1.2); Total Protein 7.2 g/dL (6.6-8.7)
--- NOTE | 2020-06-28 19:11 | ONC FU_ITS ---
Dr. Edwards Patient Follow-Up Note Patient: Lilliam Truong Unit #: [id number]: [id number] Dicatated By: Vinod Edwards M.D.Date of Visit:Jun 28, 2020 Onc Med Follow-up/Prog Note Chief Complaint: Breast cancer. 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 She had presented in September 2010 with a lump in the right breast. She underwent bilateral diagnostic mammogram, which showed a 2.0 cm spiculated mass at the 8:30-9:00 position of the right breast. It was new compared to the previous study from 2005. The appearance was suspicious for malignancy. An ultrasound-guided core biopsy on 10/17/10 did confirm invasive ductal carcinoma, grade I/III. The tumor was ER/VT positive and negative for overexpression of HER2/jeaneth (0 by IHC). She underwent lumpectomy and sentinel axillary lymph node biopsy in January of 2011. Pathology from that specimen showed grade 3 invasive ductal carcinoma measuring 2.3 cm in greatest diameter. There was ductal carcinoma in situ, estimated at 5%. There was invasive carcinoma less than 1 mm to the deep margin and DCIS within 3 mm of the deep margin. One sentinel axillary lymph node showed no evidence of malignancy. The Oncotype DX was in the high intermediate range. She opted not to take adjuvant chemotherapy. She had started radiation to the right breast in March 2011, but she stopped within a very short time, I believe after the first treatment, because of perceived side effects. At that time she also had started adjuvant hormonal therapy with tamoxifen. She was not willing to take an aromatase inhibitor because of the risk of skeletal side effects. She unfortunately developed severe itching on the tamoxifen. I'm still not entirely certain what caused that, as the itching persisted for quite a while after she had stopped the medication. She eventually came to the conclusion that it was caused by a yeast infection, and she has managed it with dietary restrictions and probiotics. She has remained steadfastly opposed to taking an aromatase inhibitor, though I discussed with her on a number of occasions the fact that her breast cancer has not been adequately treated. She eventually did agree to a trial of therapy with raloxifene, but that was stopped because it made her breasts sore. She has since then just remained on observation. Her other medical illnesses include hypertension, hypercholesterolemia, and stage III chronic kidney disease. She has degenerative arthritis and osteoporosis. She also has been treated for gout in her left great toe. She is a nonsmoker. INTERIM HISTORY: She underwent a redo right total knee arthroplasty on 05/01/2017. She tolerated that procedure very well, although she subsequently did have some problems during her physical therapy. Her bilateral diagnostic mammogram on 11/17/2017 was BI-RADS 0, showing a focal asymmetry in the posterior midportion of the right breast measuring 8.2 mm. Right breast ultrasound showed scar formation in the 8:00 position 4 cm from the nipple, similar to the November 2016 study. There was no abnormality seen in the periareolar region of the right breast. Additional mammogram views of the right breast and limited breast ultrasound on 12/15/2017 was BI-RADS for, suspicious. Findings included persistent soft tissue nodule measuring 9.6 mm in the upper outer quadrant of the right breast. Ultrasound showed an irregular area of mixed echogenicity but predominantly decreased echogenicity measuring 1.0 x 1.4 cm corresponding to the mammographic abnormality. She was notified of the finding and immediately sought further evaluation with Dr. Hoff in [place]. She had additional evaluation at the breast center. Breast MRI was recommended, but for some reason it apparently was not able to be scheduled. I had seen her for a follow-up visit on 12/23/2017. At that point she declined biopsy. She later presented with increased back pain. A staging PET/CT on 04/10/2018 showed inflammatory periarticular activity at the right glenohumeral joint, but with no evidence for residual or recurrent malignancy. Bilateral breast activity was noted to be entirely unremarkable. Bilateral axillary lymph nodes appeared radiographically benign an FDG negative. There were no findings to indicate osseous metastatic disease. A 1 centimeter superior segment left lower lobe pulmonary nodule was FDG negative. It appeared benign, but close follow-up was recommended. After further follow-up by Dr. Hoff she ultimately did undergo ultrasound-guided core biopsy on 06/01/2018. Pathology showed ductal carcinoma in situ, nuclear grade 1. There was no invasive carcinoma identified. On 07/16/2018 she underwent excisional biopsy of the right breast mass under needle localization. Pathology on a cyst biopsy from the nasopharynx showed benign cystic cavity lined by respiratory type epithelium with associated lymphoid hyperplasia. There were no fungal elements identified. There was no evidence of malignancy. I did not receive any further records, but on her follow-up with Dr. Duncan she apparently had declined mastectomy. She apparently was also seen by medical oncologist, as she did start adjuvant hormonal therapy with anastrozole 1 mg daily, which is interesting, as she had adamantly refused it in my previous discussions with her. During followup she has had declining mobility due to problems with her right knee, and she has had an area of persistent nodularity in the right breast. There has been no documented progression of the breast cancer. Her surveillance right breast ultrasound on 04/13/2019 was BI-RADS 4c, moderate suspicion. Findings included an hypoechoic lesion at the 11:00 position of the right breast 3 cm from the nipple. It measured 5.0 x 2.8 x 4.2 mm. Ultrasound biopsy was recommended. A repeat diagnostic mammogram right unilateral mammogram and ultrasound at the [facility] in [place] on 05/26/2019 showed probably benign findings (BI-RADS category 3). A six-month follow-up study was recommended. She is seen for a follow-up visit. She has not been feeling as good generally. She has had limited activity due to her knees, but she also now complains that she feels worn out. Her ECOG score is 3. She has had poor appetite, but her weight is stable. She does not have fever, night sweats, or hot flashes. Her main concern is that she has been having pain in her rectal/anal area. She has some associated swelling and she has had a little bleeding with it. She has constipation, but bowel function has been adequate with laxatives. She has frequent urination and she complains that her bladder leaks all the time. Medications: AmLODIPine Besylate 1 (5 mg) Tablet Oral daily, Anastrozole 1 Tablet (of 1 mg) Oral daily, Cholecalciferol 1 (5000 Units) Capsule Oral daily, CoQ10 1 Capsule Oral daily, Effexor XR 1 Tablet (of 150 mg) Capsule SR 24 HR Oral daily PRN, Metoprolol Tartrate 1 (25 mg) Tablet Oral b.i.d., Multivitamin 1 Liquid Oral daily, Probiotic Capsule Oral PRN, Vitamin D3 1 Tablet Oral daily, Xlear Sinus Care [place] Solution Nasal PRN Allergies: iodine contrast Review of Systems: Constitutional - She has very limited activity. She also feels wore out and just not very good generally. Appetite is poor. Her weight is stable. She has no fever, night sweats, or hot flashes. ECOG score is 3, ENMT - No sinus congestion/drainage. No mouth sores. No sore throat or difficulty swallowing, Hematologic/Lymphatic - She has easy bruising, Respiratory - No shortness of breath. No cough. No pleuritic pain or hemoptysis, Cardiovascular - No angina pain. No palpitations, Gastrointestinal - No nausea or vomiting. No heartburn or acid reflux. She has constipation, but bowel function has been adequate with laxatives. She is having pain in her rectal/anal area. She sometimes has a little bleeding with it, and she says it feels swollen, Genitourinary (F) - No dysuria or hematuria. She has urinary frequency and she complains that her bladder leaks all the time, Musculoskeletal - She has pain in both knees if she tries to walk, Integumentary - No skin rash, Neurologic - No headache or dizziness. No numbness or tingling. No other focal neurologic symptoms, Psychiatric - She has some anxiety. No depression. No insomnia. Vital Signs: Performed on Jun 28, 2020 15:13 Height - 65.00 in Weight - 206.4 lbs (HIGH) BSA - 2.00 sq.m BMI - 34.35 (HIGH) Temperature - 97.2 F (LOW) Pulse - 71 /min Respiration - 22 /min BP - 148/70 mm(hg) (HIGH) O2 Sat - 97 % Pain - 0 Physical Examination: Constitutional - She has poor mobility and she appears somewhat weak generally, Eyes - Sclerae nonicteric. Conjunctivae clear, ENMT - No lesions noted in the oral cavity, Hematologic/Lymphatic - No cervical or clavicular adenopathy, Respiratory - Lungs are clear, Cardiovascular - Heart rhythm is regular. There is a II/ systolic murmur. There is no gallop or rub noted, Breasts - There are no breast masses noted at this time. There is no axillary adenopathy, Abdomen - Soft. Liver and spleen are not enlarged. There is no abdominal mass or ascites noted and there is no inguinal adenopathy, Genitalia/Groin/Buttock (F) - Her digital exam shows no mass or other abnormality in the rectum. There are external hemorrhoids on both sides. These appear slightly engorged and mildly inflamed. There is a smaller area of nodularity anteriorly. None of these appear suspicious for neoplasm, Extremities - No edema, Integumentary - No skin eruption, Neurologic - No focal neurologic deficits noted. Lab/Imaging: Test performed on Jun 28, 2020 14:55 Sodium 142 mmol/L Potassium 3.9 mmol/L Chloride 107 mmol/L CO2 24 mmol/L Anion Gap 14.9 BUN 13 mg/dL Creatinine 1.6 mg/dL Cr Clearance (Est) 39.3800 mL/min Glucose 132 mg/dL Osmolality - Calculated 296 mOsm/kg Calcium 8.7 mg/dL Protein, Total 7.2 g/dL Albumin 3.8 g/dL Globulin 3.4 g/dL Bilirubin, Total 0.3 mg/dL ALT (SGPT) 11 U/L AST (SGOT) 17 U/L Alkaline Phosphatase 50 IU/L Test performed on Jun 28, 2020 13:58 WBC 9.0 10 3/uL RBC 4.12 10 6/uL HGB 13.0 g/dL HCT 42.0 % MCV 101.9 fL MCH 31.6 pg MCHC 31.0 g/dL RDW 13.0 % Platelet Count 215 10 3/cmm MPV 10.7 fL Neutrophils 6.71 10 3/uL Lymphocytes 1.4 10 3/uL Monocytes 0.7 10 3/uL Eosinophils 0.1 10 3/uL Basophils 0.1 10 3/uL Neutrophil % 74.3 % Lymphocyte % 15.9 % Monocyte % 7.3 % Eosinophil % 1.4 % Basophils % 0.8 % NRBC % 0 % Impression: 1. Patient with incompletely treated grade 3 infiltrating ductal carcinoma the right breast, stage IIA, ER/VT positive and HER-2/jeaneth negative. Oncotype DX was high intermediate range. She underwent lumpectomy and sentinel ight axillary lymph node biopsy in December 2010. She opted not to take adjuvant chemotherapy. She stopped radiation after the first treatment. 2. I did attempt adjuvant hormonal therapy, but she had poor tolerance for tamoxifen and she was unwilling to even try an aromatase inhibitor. 3. Her surveillance mammogram/ultrasound of the right breast in November 2017 was BI-RADS 0. Additional studies on 12/15/2017 were read as BI-RADS 4, suspicious, and biopsy was recommended. She was then seen by Dr. Hoff, and she had additional evaluation at the breast center in [place]. In May 2018 she was confirmed by core needle biopsy to have grade 1 ductal carcinoma in situ. 4. 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 It measured 1.0 cm. There was associated carcinoma in situ. The margins were negative, but with invasive carcinoma within 0.2 cm from the caudal and cranial margins. 5. She was recommended to undergo mastectomy, which she declined. 6. She then began adjuvant hormonal therapy with anastrozole 1 mg daily. Her other medical illnesses include: 7. Hypertension. 8. Hyperlipidemia. 9. Late stage III chronic kidney disease. 10. Degenerative arthritis 11. Osteoporosis and vitamin D deficiency. 12. Gout. 13. She underwent redo right total knee arthroplasty in April 2017. She has had ongoing problems with the right knee following that surgery. She has been taking adjuvant hormonal therapy with anastrozole 1 mg daily. She has been tolerating it well. She continues to have multiple complaints, the most significant being her right knee problems and her complaints of chronic mucus production which she attributes to her previous breast radiation. She has some persistent nodularity in the right breast just above the nipple areolar complex. A recent surveillance right breast ultrasound was BI-RADS 4c, moderate suspicion. She then had further evaluation at the breast center in [place]. Her repeat diagnostic mammogram/ultrasound was felt to show probably benign findings ( BI-RADS 3), and a 6-month follow-up study was recommended. During followup she had ongoing problems with her right knee following the redo total knee arthroplasty in April 2017. Associated with that she has had very limited activity and she has been showing gradual decline in her performance status. During that time she also required treatment for acute gout. However, she has been able to tolerate the anastrozole with acceptable toxicity. Her current exam shows no suspicious findings in her breast, and there are no other clinical findings to suggest recurrence/progression of the breast cancer. She does appear to be showing some decline in performance status, though. She also is having significant discomfort in the rectal/anal area which appears to be associated with some mildly inflamed external hemorrhoids. Plan: She continues adjuvant hormonal therapy with anastrozole 1 mg daily. She will be given a prescription for Anusol HC. If her symptoms do not improve, I will recommend referral to a surgeon. I will see her again in 3 months, or sooner as needed. Signed By: Vinod Edwards M.D. <<Signature on File>>
== END 2020-06-28 13:47 | disposition home or self-care (01) ==
LOC: ONCMED 13:49
PROVIDERS: PCP Family Medicine; Visit Provider Internal Medicine Medical Oncology
DX: C50.511 Malignant neoplasm of lower-outer quadrant of right female breast (principal); Z17.0 Estrogen receptor positive status [ER+]; Z79.811 Long term (current) use of aromatase inhibitors; K64.4 Residual hemorrhoidal skin tags; E78.5 Hyperlipidemia, unspecified; I12.9 Hypertensive chronic kidney disease with stage 1 through stage 4 chronic kidney disease, or unspecified chronic kidney disease; N18.3 Chronic kidney disease, stage 3 (moderate); M19.90 Unspecified osteoarthritis, unspecified site; M81.0 Age-related osteoporosis without current pathological fracture; E55.9 Vitamin D deficiency, unspecified; M10.9 Gout, unspecified; Z92.3 Personal history of irradiation; Z96.651 Presence of right artificial knee joint
CPT/HCPCS: 80053; 85025; 99214

== ENCOUNTER → 2020-08-09 11:27 | Outpatient (BNVA) | payer MEDICARE, OTHER, SELFPAY | PROVIDERS: PCP Family Medicine; Visit Provider Internal Medicine Nephrology | DX: N18.31 Chronic kidney disease, stage 3a (principal) | CPT/HCPCS: 80069; 82043; 82306; 82310; 83970; 85025 ==

== ENCOUNTER 2020-10-10 08:55 | Outpatient (CLI) | payer MEDICARE, OTHER, SELFPAY ==
[2020-10-10 14:08] LABS: Basophils # 0.1 10^3/uL (0.0-0.1); Basophils % 0.6 %; Eosinophils # 0.1 10^3/uL (0.0-0.8); Eosinophils % 1.7 %; Hematocrit 39.8 % (37.0-47.0); Hemoglobin 12.1 g/dL (11.5-15.3); Lymphocytes # 1.4 10^3/uL (0.8-4.8); Lymphocytes % 17.5 %; Mean Corpuscular HGB Conc 30.4 g/dL (30.0-36.0); Mean Corpuscular Hemoglobin 31.4 pg (28.0-34.0); Mean Corpuscular Volume 103.4 fL (81-99); Mean Platelet Volume 10.3 fL (7.4-10.4); Monocytes # 0.6 10^3/uL (0.2-0.9); Monocytes % 7.5 %; Neutrophils # 5.58 10^3/uL (1.8-7.7); Neutrophils % 72.1 %; Nucleated Red Blood Cells % 0 %; Platelet Count 266 10^3/cmm (130-400); Red Blood Count 3.85 10^6/uL (4.1-5.3); Red Cell Distribution Width 14.1 % (12.1-15.1); White Blood Count 7.8 10^3/uL (4.0-10.0)
[2020-10-10 14:18] LABS: Alanine Aminotransferase 16 U/L (0-33); Albumin Level 3.4 g/dL (3.5-5.2); Alkaline Phosphatase 54 IU/L (35-105); Anion Gap 11.8 (5-19); Aspartate Amino Transferase 18 U/L (0-32); Blood Urea Nitrogen 10 mg/dL (8-23); Calcium 8.4 mg/dL (8.5-10.5); Carbon Dioxide 30 mmol/L (22-29); Chloride 106 mmol/L (98-107); Globulin 2.7 g/dL (1.3-4.6); Glucose 123 mg/dL (65-115); Osmolality Calculated 298 mOsm/kg (285-295); Potassium 3.8 mmol/L (3.5-5.1); Sodium 144 mmol/L (136-145); Total Bilirubin 0.4 mg/dL (0.15-1.2); Total Protein 6.1 g/dL (6.6-8.7)
== END 2020-10-10 08:56 | disposition home or self-care (01) ==
LOC: ONCMED 15:58
PROVIDERS: PCP Family Medicine; Visit Provider Internal Medicine Medical Oncology
DX: C50.811 Malignant neoplasm of overlapping sites of right female breast (principal); Z17.0 Estrogen receptor positive status [ER+]
CPT/HCPCS: 80053; 85025

== ENCOUNTER 2020-11-13 08:08 | Outpatient (CLI) | payer MEDICARE, OTHER, SELFPAY ==
[2020-11-13 08:58] LABS: Basophils # 0.1 10^3/uL (0.0-0.1); Basophils % 0.7 %; Eosinophils # 0.1 10^3/uL (0.0-0.8); Eosinophils % 1.4 %; Hematocrit 40.5 % (37.0-47.0); Hemoglobin 12.9 g/dL (11.5-15.3); Lymphocytes % 13.5 %; Mean Corpuscular HGB Conc 31.9 g/dL (30.0-36.0); Mean Corpuscular Hemoglobin 32.4 pg (28.0-34.0); Mean Corpuscular Volume 101.8 fL (81-99); Mean Platelet Volume 9.9 fL (7.4-10.4); Monocytes # 0.5 10^3/uL (0.2-0.9); Monocytes % 6.3 %; Neutrophils % 77.7 %; Nucleated Red Blood Cells % 0 %; Platelet Count 306 10^3/cmm (130-400); Red Blood Count 3.98 10^6/uL (4.1-5.3); Red Cell Distribution Width 13.3 % (12.1-15.1); White Blood Count 7.2 10^3/uL (4.0-10.0)
[2020-11-13 09:23] LABS: Alanine Aminotransferase 14 U/L (0-33); Albumin Level 3.9 g/dL (3.5-5.2); Alkaline Phosphatase 52 IU/L (35-105); Aspartate Amino Transferase 19 U/L (0-32); Blood Urea Nitrogen 13 mg/dL (8-23); Calcium 9.3 mg/dL (8.5-10.5); Carbon Dioxide 26 mmol/L (22-29); Chloride 106 mmol/L (98-107); Globulin 3.4 g/dL (1.3-4.6); Glucose 98 mg/dL (65-115); Osmolality Calculated 292 mOsm/kg (285-295); Sodium 141 mmol/L (136-145); Total Bilirubin 0.6 mg/dL (0.15-1.2); Total Protein 7.3 g/dL (6.6-8.7)
--- NOTE | 2020-11-13 19:10 | ONC FU_ITS ---
Dr. Edwards Patient Follow-Up Note Patient: Lilliam Truong Unit #: [id number]: [id number] Dicatated By: Vinod Edwards M.D.Date of Visit:Nov 13, 2020 Onc Med Follow-up/Prog Note Chief Complaint: Breast cancer. 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 She had presented in September 2010 with a lump in the right breast. She underwent bilateral diagnostic mammogram, which showed a 2.0 cm spiculated mass at the 8:30-9:00 position of the right breast. It was new compared to the previous study from 2005. The appearance was suspicious for malignancy. An ultrasound-guided core biopsy on 10/17/10 did confirm invasive ductal carcinoma, grade I/III. The tumor was ER/OK positive and negative for overexpression of HER2/jeaneth (0 by IHC). She underwent lumpectomy and sentinel axillary lymph node biopsy in January of 2011. Pathology from that specimen showed grade 3 invasive ductal carcinoma measuring 2.3 cm in greatest diameter. There was ductal carcinoma in situ, estimated at 5%. There was invasive carcinoma less than 1 mm to the deep margin and DCIS within 3 mm of the deep margin. One sentinel axillary lymph node showed no evidence of malignancy. The Oncotype DX was in the high intermediate range. She opted not to take adjuvant chemotherapy. She had started radiation to the right breast in March 2011, but she stopped within a very short time, I believe after the first treatment, because of perceived side effects. At that time she also had started adjuvant hormonal therapy with tamoxifen. She was not willing to take an aromatase inhibitor because of the risk of skeletal side effects. She unfortunately developed severe itching on the tamoxifen. I'm still not entirely certain what caused that, as the itching persisted for quite a while after she had stopped the medication. She eventually came to the conclusion that it was caused by a yeast infection, and she has managed it with dietary restrictions and probiotics. She has remained steadfastly opposed to taking an aromatase inhibitor, though I discussed with her on a number of occasions the fact that her breast cancer has not been adequately treated. She eventually did agree to a trial of therapy with raloxifene, but that was stopped because it made her breasts sore. She has since then just remained on observation. Her other medical illnesses include hypertension, hypercholesterolemia, and stage III chronic kidney disease. She has degenerative arthritis and osteoporosis. She also has been treated for gout in her left great toe. She is a nonsmoker. INTERIM HISTORY: She underwent a redo right total knee arthroplasty on 05/01/2017. She tolerated that procedure very well, although she subsequently did have some problems during her physical therapy. Her bilateral diagnostic mammogram on 11/17/2017 was BI-RADS 0, showing a focal asymmetry in the posterior midportion of the right breast measuring 8.2 mm. Right breast ultrasound showed scar formation in the 8:00 position 4 cm from the nipple, similar to the November 2016 study. There was no abnormality seen in the periareolar region of the right breast. Additional mammogram views of the right breast and limited breast ultrasound on 12/15/2017 was BI-RADS for, suspicious. Findings included persistent soft tissue nodule measuring 9.6 mm in the upper outer quadrant of the right breast. Ultrasound showed an irregular area of mixed echogenicity but predominantly decreased echogenicity measuring 1.0 x 1.4 cm corresponding to the mammographic abnormality. She was notified of the finding and immediately sought further evaluation with Dr. Hoff in [place]. She had additional evaluation at the breast center. Breast MRI was recommended, but for some reason it apparently was not able to be scheduled. I had seen her for a follow-up visit on 12/23/2017. At that point she declined biopsy. She later presented with increased back pain. A staging PET/CT on 04/10/2018 showed inflammatory periarticular activity at the right glenohumeral joint, but with no evidence for residual or recurrent malignancy. Bilateral breast activity was noted to be entirely unremarkable. Bilateral axillary lymph nodes appeared radiographically benign an FDG negative. There were no findings to indicate osseous metastatic disease. A 1 centimeter superior segment left lower lobe pulmonary nodule was FDG negative. It appeared benign, but close follow-up was recommended. After further follow-up by Dr. Hoff she ultimately did undergo ultrasound-guided core biopsy on 06/01/2018. Pathology showed ductal carcinoma in situ, nuclear grade 1. There was no invasive carcinoma identified. On 07/16/2018 she underwent excisional biopsy of the right breast mass under needle localization. Pathology on a cyst biopsy from the nasopharynx showed benign cystic cavity lined by respiratory type epithelium with associated lymphoid hyperplasia. There were no fungal elements identified. There was no evidence of malignancy. I did not receive any further records, but on her follow-up with Dr. Duncan she apparently had declined mastectomy. She apparently was also seen by medical oncologist, as she did start adjuvant hormonal therapy with anastrozole 1 mg daily, which is interesting, as she had adamantly refused it in my previous discussions with her. During followup she has had declining mobility due to problems with her right knee, and she has had an area of persistent nodularity in the right breast. There has been no documented progression of the breast cancer. Her surveillance right breast ultrasound on 04/13/2019 was BI-RADS 4c, moderate suspicion. Findings included an hypoechoic lesion at the 11:00 position of the right breast 3 cm from the nipple. It measured 5.0 x 2.8 x 4.2 mm. Ultrasound biopsy was recommended. A repeat diagnostic mammogram right unilateral mammogram and ultrasound at the [facility] in [place] on 05/26/2019 showed probably benign findings (BI-RADS category 3). A six-month follow-up study was recommended. She had repeat diagnostic mammogram and right breast ultrasound done here on 12/19/2019. It was read as BI-RADS 4, suspicious, with a an irregular hypoechoic lesion seen at the 10 o'clock position of the right breast measuring 1.5 x 0.5 x 1.0 cm. On further evaluation at the breast center, the findings were felt to be benign and 6-month follow-up was recommended. As such, she continued her adjuvant hormonal therapy with anastrozole. She is seen for a follow-up visit. She has been feeling good generally. She continues to have limited mobility due to her knee problems, though she really is not having as much pain now. Her ECOG score is 3. She has good appetite. She has no fever, night sweats, or hot flashes. She does not complain of shortness of breath, cough, or chest pain. She has no GI or complaints. She has no other joint or bone pain. She does not complain of headache or dizziness, and she has no focal neurologic symptoms. She does complain that her memory is getting worse. Medications: AmLODIPine Besylate 1 (5 mg) Tablet Oral daily, Anastrozole 1 Tablet (of 1 mg) Oral daily, Cholecalciferol 1 (5000 Units) Capsule Oral daily, CoQ10 1 Capsule Oral daily, Effexor XR 1 Tablet (of 150 mg) Capsule SR 24 HR Oral daily PRN, Metoprolol Tartrate 1 (25 mg) Tablet Oral b.i.d., Multivitamin 1 Liquid Oral daily, Probiotic Capsule Oral PRN, Vitamin D3 1 Tablet Oral daily, Xlear Sinus Care [place] Solution Nasal PRN Allergies: iodine contrast Vital Signs: Performed on Nov 13, 2020 09:28 Height - 65.00 in Weight - 196.4 lbs (LOW) BSA - 1.96 sq.m BMI - 32.68 (HIGH) Temperature - 97.9 F (LOW) Pulse - 81 /min Respiration - 17 /min BP - 132/84 mm(hg) O2 Sat - 95 % (LOW) Pain - 0 Physical Examination: Constitutional - She looks pretty good generally, though she does have limited mobility, Eyes - Sclerae nonicteric. Conjunctivae clear, ENMT - No lesions noted in the oral cavity, Hematologic/Lymphatic - No cervical or clavicular adenopathy, Respiratory - Lungs are clear, Cardiovascular - Heart rhythm is regular. There is a II/ systolic murmur. There is no gallop or rub noted, Breasts - There still some mild nodularity in the right breast. There are no suspicious masses noted in either breast. There is no axillary adenopathy noted, Abdomen - Soft. Liver and spleen are not enlarged. There is no abdominal mass or ascites noted and there is no inguinal adenopathy, Extremities - No edema, Integumentary - No skin eruption, Neurologic - No focal neurologic deficits noted. Lab/Imaging: Test performed on Nov 13, 2020 08:20 Sodium 141 mmol/L Potassium 4.0 mmol/L Chloride 106 mmol/L CO2 26 mmol/L Anion Gap 13.0 BUN 13 mg/dL Creatinine 1.4 mg/dL Cr Clearance (Est) 42.82 mL/min Glucose 98 mg/dL Osmolality - Calculated 292 mOsm/kg Calcium 9.3 mg/dL Protein, Total 7.3 g/dL Albumin 3.9 g/dL Globulin 3.4 g/dL Bilirubin, Total 0.6 mg/dL ALT (SGPT) 14 U/L AST (SGOT) 19 U/L Alkaline Phosphatase 52 IU/L WBC 7.2 10 3/uL RBC 3.98 10 6/uL HGB 12.9 g/dL HCT 40.5 % MCV 101.8 fL MCH 32.4 pg MCHC 31.9 g/dL RDW 13.3 % Platelet Count 306 10 3/cmm MPV 9.9 fL Neutrophils 5.60 10 3/uL Lymphocytes 1.0 10 3/uL Monocytes 0.5 10 3/uL Eosinophils 0.1 10 3/uL Basophils 0.1 10 3/uL Neutrophil % 77.7 % Lymphocyte % 13.5 % Monocyte % 6.3 % Eosinophil % 1.4 % Basophils % 0.7 % NRBC % 0 % Problem List: 1. Incompletely treated grade 3 infiltrating ductal carcinoma the right breast, stage IIA, ER/OK positive and HER-2/jeaneth negative. Oncotype DX was high intermediate range. She underwent lumpectomy and axillary sentinel lymph node biopsy in December 2010. She opted not to take adjuvant chemotherapy. She stopped radiation after the first treatment. 2. I did attempt adjuvant hormonal therapy, but she had poor tolerance for tamoxifen and she was unwilling to even try an aromatase inhibitor. 3. Her surveillance mammogram/ultrasound of the right breast in November 2017 was BI-RADS 0. Additional studies on 12/15/2017 were read as BI-RADS 4, suspicious, and biopsy was recommended. She was then seen by Dr. Hoff, and she had additional evaluation at the breast center in [place]. In May 2018 she was confirmed by core needle biopsy to have grade 1 ductal carcinoma in situ. 4. 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 It measured 1.0 cm. There was associated carcinoma in situ. The margins were negative, but with invasive carcinoma within 0.2 cm from the caudal and cranial margins. 5. She was recommended to undergo mastectomy, which she declined. 6. She then began adjuvant hormonal therapy with anastrozole 1 mg daily. Her other medical illnesses include: 7. Hypertension. 8. Hyperlipidemia. 9. Late stage III chronic kidney disease. 10. Degenerative arthritis 11. Osteoporosis and vitamin D deficiency. 12. Gout. 13. She underwent redo right total knee arthroplasty in April 2017. She has had ongoing problems with the right knee following that surgery. Problems Addressed with this Encounter and Plan: Patient with incompletely treated grade 3 infiltrating ductal carcinoma the right breast, stage IIA, ER/OK positive and HER-2/jeaneth negative. She underwent lumpectomy and axillary sentinel lymph node biopsy in December 2010. Oncotype DX was high intermediate range. She opted not to take adjuvant chemotherapy. She stopped radiation after the first treatment. I did attempt adjuvant hormonal therapy, but she had poor tolerance for tamoxifen and she was unwilling to even try an aromatase inhibitor. Her surveillance mammogram/ultrasound of the right breast in November 2017 was BI-RADS 0. Additional studies on 12/15/2017 were read as BI-RADS 4, suspicious, and biopsy was recommended. She was then seen by Dr. Hoff, and she had additional evaluation at the breast center in [place]. In May 2018 she was confirmed by core needle biopsy to have grade 1 ductal carcinoma in situ. 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 It measured 1.0 cm. There was associated carcinoma in situ. The margins were negative, but with invasive carcinoma within 0.2 cm from the caudal and cranial margins. She was recommended to undergo mastectomy, which she declined. However, she did then began adjuvant hormonal therapy with anastrozole 1 mg daily. She has been able to tolerated with acceptable toxicity and thus far during follow-up there has been no further recurrence of the breast cancer. At this point she continues to have very limited mobility due to her knee problems. However, she is otherwise doing very well clinically. She seems to be having no adverse effects with the anastrozole. There has been no obvious recurrence of the breast cancer, but she probably is overdue for her surveillance mammogram/ultrasound, and that will need to be scheduled. She will continue the anastrozole 1 mg daily. I will tentatively plan a follow-up visit in 6 months. Signed By: Vinod Edwards M.D. <<Signature on File>>
== END 2020-11-13 08:09 | disposition home or self-care (01) ==
PROVIDERS: PCP Family Medicine; Visit Provider Internal Medicine Medical Oncology
DX: C50.811 Malignant neoplasm of overlapping sites of right female breast (principal); Z17.0 Estrogen receptor positive status [ER+]; E78.5 Hyperlipidemia, unspecified; E55.9 Vitamin D deficiency, unspecified; I12.9 Hypertensive chronic kidney disease with stage 1 through stage 4 chronic kidney disease, or unspecified chronic kidney disease; N18.31 Chronic kidney disease, stage 3a; M19.90 Unspecified osteoarthritis, unspecified site; M81.0 Age-related osteoporosis without current pathological fracture; M10.9 Gout, unspecified
CPT/HCPCS: 36415; 80053; 85025; 99214

== ENCOUNTER 2020-12-03 12:54 | Outpatient (CLI) | payer MEDICARE, OTHER, SELFPAY ==
--- NOTE | 2020-12-03 12:56 | MM_ITS ---
WS: [id number] DIAGNOSTIC BILATERAL DIGITAL MAMMOGRAM WITH CAD RIGHT breast ultrasound, limited HISTORY: HX OF BREAST CA COMPARISON: 12/15/2019, 12/15/2017 TECHNIQUE: Bilateral craniocaudad, mediolateral oblique, and mediolateral views are submitted. Comput er aided detection utilized. Breast composition: There are scattered areas of fibroglandular density. There is an increasing asymm etry in the upper outer quadrant of the RIGHT breast near 10:00 measuring 10 mm. This asymmetry conta ins a biopsy clip. LEFT breast is negative. RIGHT breast ultrasound, limited. Ultrasound directed to the upper outer quadrant of the RIGHT breast. There is a hypoechoic mass measu ring 1.0 x 0.4 x 0.3 cm containing the clip. This mass appears to be cystic in appearance. MM/[place] [id number] IMPRESSION: BI-RADS: 3-Probably Benign FOLLOW UP: 6 Month Follow-up Increasing soft tissue mass at 10:00 RIGHT breast contains a biopsy clip. Pleas e correlate with pathology findings. If the pathology was not benign this shoul d be surgically excised. If the pathology is benign consider 6 month follow-up as it has increased in size. Appears very cystic by ultrasound. 6 month RIGHT mammogram follow-up and ultrasound recommended.
== END 2020-12-03 12:55 | disposition home or self-care (01) ==
LOC: RADSHAW 12:54
PROVIDERS: PCP Family Medicine; Visit Provider Internal Medicine Medical Oncology
DX: Z85.3 Personal history of malignant neoplasm of breast (principal); N63.11 Unspecified lump in the right breast, upper outer quadrant
CPT/HCPCS: 76642; 77066

== ENCOUNTER 2020-12-14 12:48 | Outpatient (CLI) | payer MEDICARE, OTHER, SELFPAY ==
--- NOTE | 2020-12-14 12:58 | XR_ITS ---
WS: [id number] Thoracic spine, 3 views, 12/14/2020 Clinical Data: LEFT SIDED THORACIC BACK PAIN Comparison: None. Findings: No compression fractures are seen. The disc heights are normal. There is a dextroscoliosis of mid thoracic spine. Moderate osteoarthritic change involving the thorac ic vertebral bodies is seen. The paravertebral regions show no abnormalities. Diffuse osteoporosis is present. There are clips in the left side of the neck from surgery. XR/XR thoracic spine 3V* [id number] Impression: 1. 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 2. Moderate dextroscoliosis.
== END 2020-12-14 12:49 | disposition home or self-care (01) ==
PROVIDERS: PCP Family Medicine; Visit Provider Surgery
DX: M81.0 Age-related osteoporosis without current pathological fracture (principal); M47.814 Spondylosis without myelopathy or radiculopathy, thoracic region; M41.84 Other forms of scoliosis, thoracic region
CPT/HCPCS: 72072

== ENCOUNTER 2020-12-26 10:35 | Outpatient (CLI) | payer MEDICARE, OTHER, SELFPAY ==
--- NOTE | 2020-12-26 11:30 | CT_ITS ---
WS: [id number] CT HEAD TECHNIQUE: Noncontrast CT of the head obtained from the skullbase to the vertex. CLINICAL INFORMATION: R41.3 - Other amnesia COMPARISON: None. DLP: 1851.[address] scans at [facility] use at least one of these dose optimization techniques: automat ed exposure control; mA and/or kV adjustment per patient size (includes targeted exams where dose is matched to clinical indication); or iterative reconstruction. FINDINGS: No evidence of intracranial hemorrhage or mass effect. Ventricular system and basal cisterns are ayala nt. Mild small vessel changes with moderate parenchymal volume loss. No extra-axial fluid collections . No evidence of mass or mass effect. Normal torres-white differentiation. Paranasal sinuses and mastoid air cells are well aerated. .Normal visualized soft tissues. CT/CT head wo con* [id number] IMPRESSION: 1. No evidence of intracranial hemorrhage or mass effect. 2. Mild small vessel changes. Moderate parenchymal volume loss. 3. No acute intracranial findings.
[2020-12-26 12:55] LABS: 25 Hydroxy Vitamin D 30 ng/mL (30-100); Alanine Aminotransferase 11 U/L (0-33); Albumin Level 3.7 g/dL (3.5-5.2); Alkaline Phosphatase 52 IU/L (35-105); Anion Gap 11.7 (5-19); Aspartate Amino Transferase 16 U/L (0-32); Blood Urea Nitrogen 12 mg/dL (8-23); Carbon Dioxide 32 mmol/L (22-29); Chloride 104 mmol/L (98-107); Globulin 3.3 g/dL (1.3-4.6); Glucose 93 mg/dL (65-115); Osmolality Calculated 297 mOsm/kg (285-295); Potassium 3.7 mmol/L (3.5-5.1); Sodium 144 mmol/L (136-145); Thyroid Stimulating Hormone 2.43 uIU/mL (0.27-4.20); Total Bilirubin 0.3 mg/dL (0.15-1.2); Vitamin B12 179 pg/mL (232-1245)
== END 2020-12-26 10:36 | disposition home or self-care (01) ==
PROVIDERS: PCP Family Medicine; Visit Provider Nurse Practitioner
DX: R41.3 Other amnesia (principal); E55.9 Vitamin D deficiency, unspecified
CPT/HCPCS: 70450; 80053; 82306; 82607; 84443

== ENCOUNTER → 2021-01-03 13:45 | Outpatient (BNVA) | payer MEDICARE, OTHER, SELFPAY | PROVIDERS: PCP Family Medicine; Visit Provider Nurse Practitioner | DX: F01.50 Vascular dementia, unspecified severity, without behavioral disturbance, psychotic disturbance, mood disturbance, and anxiety (principal); N39.0 Urinary tract infection, site not specified; I10 Essential (primary) hypertension; F41.9 Anxiety disorder, unspecified | CPT/HCPCS: 81003; 87077; 87086; 87184 ==

== ENCOUNTER → 2021-01-24 14:20 | Outpatient (BNVA) | payer MEDICARE, OTHER, SELFPAY | PROVIDERS: PCP Family Medicine; Visit Provider Nurse Practitioner | DX: I10 Essential (primary) hypertension (principal); N39.0 Urinary tract infection, site not specified | CPT/HCPCS: 81000 ==

== ENCOUNTER 2021-05-09 12:56 | Outpatient (CLI) | payer MEDICARE, OTHER, SELFPAY ==
[2021-05-09 13:32] LABS: Basophils # 0.1 10^3/uL (0.0-0.1); Basophils % 0.8 %; Eosinophils # 0.1 10^3/uL (0.0-0.8); Eosinophils % 0.9 %; Hematocrit 36.6 % (37.0-47.0); Hemoglobin 11.6 g/dL (11.5-15.3); Lymphocytes # 1.1 10^3/uL (0.8-4.8); Lymphocytes % 14.6 %; Mean Corpuscular HGB Conc 31.7 g/dL (30.0-36.0); Mean Corpuscular Hemoglobin 32.1 pg (28.0-34.0); Mean Corpuscular Volume 101.4 fL (81-99); Mean Platelet Volume 9.8 fL (7.4-10.4); Monocytes # 0.6 10^3/uL (0.2-0.9); Monocytes % 8.4 %; Neutrophils # 5.68 10^3/uL (1.8-7.7); Neutrophils % 74.9 %; Nucleated Red Blood Cells % 0 %; Platelet Count 251 10^3/cmm (130-400); Red Blood Count 3.61 10^6/uL (4.1-5.3); Red Cell Distribution Width 13.2 % (12.1-15.1); White Blood Count 7.6 10^3/uL (4.0-10.0)
[2021-05-09 13:45] LABS: Alanine Aminotransferase 9 U/L (0-33); Albumin Level 3.4 g/dL (3.5-5.2); Alkaline Phosphatase 56 IU/L (35-105); Anion Gap 11.4 (5-19); Aspartate Amino Transferase 15 U/L (0-32); Blood Urea Nitrogen 12 mg/dL (8-23); Calcium 8.2 mg/dL (8.5-10.5); Carbon Dioxide 30 mmol/L (22-29); Chloride 104 mmol/L (98-107); Glucose 112 mg/dL (65-115); Osmolality Calculated 295 mOsm/kg (285-295); Potassium 3.4 mmol/L (3.5-5.1); Sodium 142 mmol/L (136-145); Total Bilirubin 0.4 mg/dL (0.15-1.2); Total Protein 6.4 g/dL (6.6-8.7)
[2021-05-09 14:01] LABS: 25 Hydroxy Vitamin D 31 ng/mL (30-100)
--- NOTE | 2021-05-12 15:08 | ONC FU_ITS ---
Dr. Edwards Patient Follow-Up Note Patient: Lilliam Truong Unit #: [id number]: 1935 Dicatated By: Vinod Edwards M.D.Date of Visit:May 09, 2021 Onc Med Follow-up/Prog Note Chief Complaint: Breast cancer. 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 She had presented in September 2010 with a lump in the right breast. She underwent bilateral diagnostic mammogram, which showed a 2.0 cm spiculated mass at the 8:30-9:00 position of the right breast. It was new compared to the previous study from 2005. The appearance was suspicious for malignancy. An ultrasound-guided core biopsy on 10/17/10 did confirm invasive ductal carcinoma, grade I/III. The tumor was ER/AK positive and negative for overexpression of HER2/jeaneth (0 by IHC). She underwent lumpectomy and sentinel axillary lymph node biopsy in January of 2011. Pathology from that specimen showed grade 3 invasive ductal carcinoma measuring 2.3 cm in greatest diameter. There was ductal carcinoma in situ, estimated at 5%. There was invasive carcinoma less than 1 mm to the deep margin and DCIS within 3 mm of the deep margin. One sentinel axillary lymph node showed no evidence of malignancy. The Oncotype DX was in the high intermediate range. She opted not to take adjuvant chemotherapy. She had started radiation to the right breast in March 2011, but she stopped within a very short time, I believe after the first treatment, because of perceived side effects. At that time she also had started adjuvant hormonal therapy with tamoxifen. She was not willing to take an aromatase inhibitor because of the risk of skeletal side effects. She unfortunately developed severe itching on the tamoxifen. I'm still not entirely certain what caused that, as the itching persisted for quite a while after she had stopped the medication. She eventually came to the conclusion that it was caused by a yeast infection, and she has managed it with dietary restrictions and probiotics. She has remained steadfastly opposed to taking an aromatase inhibitor, though I discussed with her on a number of occasions the fact that her breast cancer has not been adequately treated. She eventually did agree to a trial of therapy with raloxifene, but that was stopped because it made her breasts sore. She has since then just remained on observation. Her other medical illnesses include hypertension, hypercholesterolemia, and stage III chronic kidney disease. She has degenerative arthritis and osteoporosis. She also has been treated for gout in her left great toe. She is a nonsmoker. INTERIM HISTORY: She underwent a redo right total knee arthroplasty on 05/01/2017. She tolerated that procedure very well, although she subsequently did have some problems during her physical therapy. Her bilateral diagnostic mammogram on 11/17/2017 was BI-RADS 0, showing a focal asymmetry in the posterior midportion of the right breast measuring 8.2 mm. Right breast ultrasound showed scar formation in the 8:00 position 4 cm from the nipple, similar to the November 2016 study. There was no abnormality seen in the periareolar region of the right breast. Additional mammogram views of the right breast and limited breast ultrasound on 12/15/2017 was BI-RADS for, suspicious. Findings included persistent soft tissue nodule measuring 9.6 mm in the upper outer quadrant of the right breast. Ultrasound showed an irregular area of mixed echogenicity but predominantly decreased echogenicity measuring 1.0 x 1.4 cm corresponding to the mammographic abnormality. She was notified of the finding and immediately sought further evaluation with Dr. Hoff in [place]. She had additional evaluation at the breast center. Breast MRI was recommended, but for some reason it apparently was not able to be scheduled. I had seen her for a follow-up visit on 12/23/2017. At that point she declined biopsy. She later presented with increased back pain. A staging PET/CT on 04/10/2018 showed inflammatory periarticular activity at the right glenohumeral joint, but with no evidence for residual or recurrent malignancy. Bilateral breast activity was noted to be entirely unremarkable. Bilateral axillary lymph nodes appeared radiographically benign an FDG negative. There were no findings to indicate osseous metastatic disease. A 1 centimeter superior segment left lower lobe pulmonary nodule was FDG negative. It appeared benign, but close follow-up was recommended. After further follow-up by Dr. Hoff she ultimately did undergo ultrasound-guided core biopsy on 06/01/2018. Pathology showed ductal carcinoma in situ, nuclear grade 1. There was no invasive carcinoma identified. On 07/16/2018 she underwent excisional biopsy of the right breast mass under needle localization. Pathology on a cyst biopsy from the nasopharynx showed benign cystic cavity lined by respiratory type epithelium with associated lymphoid hyperplasia. There were no fungal elements identified. There was no evidence of malignancy. I did not receive any further records, but on her follow-up with Dr. Duncan she apparently had declined mastectomy. She apparently was also seen by medical oncologist, as she did start adjuvant hormonal therapy with anastrozole 1 mg daily, which is interesting, as she had adamantly refused it in my previous discussions with her. During followup she has had declining mobility due to problems with her right knee, and she has had an area of persistent nodularity in the right breast. There has been no documented progression of the breast cancer. Her surveillance right breast ultrasound on 04/13/2019 was BI-RADS 4c, moderate suspicion. Findings included an hypoechoic lesion at the 11:00 position of the right breast 3 cm from the nipple. It measured 5.0 x 2.8 x 4.2 mm. Ultrasound biopsy was recommended. A repeat diagnostic mammogram right unilateral mammogram and ultrasound at the [facility] in [place] on 05/26/2019 showed probably benign findings (BI-RADS category 3). A six-month follow-up study was recommended. She had repeat diagnostic mammogram and right breast ultrasound done here on 12/19/2019. It was read as BI-RADS 4, suspicious, with a an irregular hypoechoic lesion seen at the 10 o'clock position of the right breast measuring 1.5 x 0.5 x 1.0 cm. On further evaluation at the breast center, the findings were felt to be benign and 6-month follow-up was recommended. As such, she continued her adjuvant hormonal therapy with anastrozole. A repeat diagnostic mammogram on 12/03/2020 showed increasing soft tissue mass at the 10 o'clock position of the right breast. She was scheduled to follow-up with Dr. Hoff in [place]. She is seen for a follow-up visit. She continues to have very limited activity due to her right knee pain. Her ECOG score is 3. Her appetite is been okay. She has no fever, night sweats, or hot flashes. She has no shortness of breath, cough, or chest pain. She has no GI or complaints. She says her knees do not really hurt that much unless she is trying to walk. She also has had some back pain, but that has not been bothering her lately. She does not complain of headache or dizziness, and she has no focal neurologic symptoms. Medications: AmLODIPine Besylate 1 (5 mg) Tablet Oral daily, Anastrozole 1 Tablet (of 1 mg) Oral daily, Cholecalciferol 1 (5000 Units) Capsule Oral daily, CoQ10 1 Capsule Oral daily, Effexor XR 1 Tablet (of 150 mg) Capsule SR 24 HR Oral daily PRN, Metoprolol Tartrate 1 (25 mg) Tablet Oral b.i.d., Multivitamin 1 Liquid Oral daily, Probiotic Capsule Oral PRN, Vitamin D3 1 Tablet Oral daily, Xlear Sinus Care [place] Solution Nasal PRN Allergies: iodine contrast Vital Signs: Performed on May 09, 2021 14:39 Height - 65.00 in Temperature - 98.6 F Pulse - 77 /min Respiration - 18 /min BP - 165/67 mm(hg) (HIGH) O2 Sat - 96 % Pain - 0 Fatigue - 0 Physical Examination: Constitutional - She has limited mobility, Eyes - Sclerae nonicteric. Conjunctivae clear, ENMT - No lesions noted in the oral cavity, Hematologic/Lymphatic - No cervical, clavicular, or axillary adenopathy, Respiratory - Lungs are clear, Cardiovascular - Heart rhythm is regular. There is a II/ systolic murmur. There is no gallop or rub noted, Abdomen - Soft. Liver and spleen are not enlarged. There is no abdominal mass or ascites noted and there is no inguinal adenopathy, Extremities - No edema. She has good dorsalis pedis pulses bilaterally, Neurologic - No focal neurologic deficits noted. Lab/Imaging: Test performed on May 09, 2021 13:13 Sodium 142 mmol/L Vitamin D (25-Hydroxy), Total 31 ng/mL Potassium 3.4 mmol/L Chloride 104 mmol/L CO2 30 mmol/L Anion Gap 11.4 BUN 12 mg/dL Creatinine 1.4 mg/dL Cr Clearance (Est) 42.0700 mL/min Glucose 112 mg/dL Osmolality - Calculated 295 mOsm/kg Calcium 8.2 mg/dL Protein, Total 6.4 g/dL Albumin 3.4 g/dL Globulin 3.0 g/dL Bilirubin, Total 0.4 mg/dL ALT (SGPT) 9 U/L AST (SGOT) 15 U/L Alkaline Phosphatase 56 IU/L WBC 7.6 10 3/uL RBC 3.61 10 6/uL HGB 11.6 g/dL HCT 36.6 % MCV 101.4 fL MCH 32.1 pg MCHC 31.7 g/dL RDW 13.2 % Platelet Count 251 10 3/cmm MPV 9.8 fL Neutrophils 5.68 10 3/uL Lymphocytes 1.1 10 3/uL Monocytes 0.6 10 3/uL Eosinophils 0.1 10 3/uL Basophils 0.1 10 3/uL Neutrophil % 74.9 % Lymphocyte % 14.6 % Monocyte % 8.4 % Eosinophil % 0.9 % Basophils % 0.8 % NRBC % 0 % Problem List: 1. Grade 3 infiltrating ductal carcinoma the right breast, stage IIA, ER/AK positive and HER-2/jeaneth negative. Oncotype DX was high intermediate range. She underwent lumpectomy and axillary sentinel lymph node biopsy in December 2010. She opted not to take adjuvant chemotherapy. She stopped radiation after the first treatment. 2. Hypertension. 3. Hyperlipidemia. 4. Late stage III chronic kidney disease. 5. Degenerative arthritis 6. Osteoporosis and vitamin D deficiency. 7. Gout. 8. She underwent redo right total knee arthroplasty in April 2017. She has had ongoing problems with the right knee following that surgery. Problems Addressed with this Encounter and Plan: Patient with incompletely treated grade 3 infiltrating ductal carcinoma the right breast, stage IIA, ER/AK positive and HER-2/jeaneth negative. She underwent lumpectomy and axillary sentinel lymph node biopsy in December 2010. Oncotype DX was high intermediate range. She opted not to take adjuvant chemotherapy. She stopped radiation after the first treatment. I did attempt adjuvant hormonal therapy, but she had poor tolerance for tamoxifen and she initially was unwilling to even try an aromatase inhibitor. Her surveillance mammogram/ultrasound of the right breast in November 2017 was BI-RADS 0. Additional studies on 12/15/2017 were read as BI-RADS 4, suspicious, and biopsy was recommended. She was then seen by Dr. Hoff, and she had additional evaluation at the breast center in [place]. In May 2018 she was confirmed by core needle biopsy to have grade 1 ductal carcinoma in situ. 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 It measured 1.0 cm. There was associated carcinoma in situ. The margins were negative, but with invasive carcinoma within 0.2 cm from the caudal and cranial margins. She was recommended to undergo mastectomy, which she declined. However, she did then began adjuvant hormonal therapy with anastrozole 1 mg daily. She has been able to tolerate it with acceptable toxicity and thus far during follow-up there has been no further recurrence of the breast cancer. At this point she continues to have very limited activity due to her right knee problems. She also has had some back pain. However, she does appear to be tolerating the anastrozole with acceptable toxicity. There was some change noted in the right breast at the 10 o'clock position on her mammogram in December. She did have follow-up with Dr. Hoff. She will be scheduled for repeat unilateral right diagnostic mammogram in 1 month, which will represent a 6-month interval study. She will have further evaluation as indicated. I will tentatively plan a follow-up visit in 6 months. Signed By: Vinod Edwards M.D. <<Signature on File>>
== END 2021-05-09 12:57 | disposition home or self-care (01) ==
LOC: ONCMED 12:59
PROVIDERS: PCP Family Medicine; Visit Provider Internal Medicine Medical Oncology
DX: C50.811 Malignant neoplasm of overlapping sites of right female breast (principal); Z17.0 Estrogen receptor positive status [ER+]; I10 Essential (primary) hypertension; E78.5 Hyperlipidemia, unspecified; N18.30 Chronic kidney disease, stage 3 unspecified; M81.0 Age-related osteoporosis without current pathological fracture; E55.9 Vitamin D deficiency, unspecified; M10.9 Gout, unspecified; Z96.651 Presence of right artificial knee joint; Z92.3 Personal history of irradiation; Z79.811 Long term (current) use of aromatase inhibitors
CPT/HCPCS: 80053; 82306; 85025; 99214

== ENCOUNTER 2021-07-03 12:46 | Outpatient (CLI) | payer MEDICARE, OTHER, SELFPAY ==
--- NOTE | 2021-07-03 13:01 | MM_ITS ---
WS: [id number] Diagnostic RIGHT MAMMOGRAM with CAD RIGHT BREAST ULTRASOUND HISTORY: 6 MO F/u; hx OF BREAST CA COMPARISON: 12/03/2020, 12/15/2019 and 12/15/2017 RIGHT MAMMOGRAM: Spot compression views and true ML. The asymmetry in the lateral RIGHT breast is less apparent today. This asymmetry is adjacent to a barber or biopsy clip. Additional calcification throughout the RIGHT breast. RIGHT BREAST ULTRASOUND 2-D and color Doppler imaging submitted. Ultrasound is directed to the lateral RIGHT breast. The previously described cyst associated with the biopsy clip seen on the prior ultrasound is no longer present. There is no soft tissue mass or disto rtion identified on today's ultrasound examination. MM/[place] [id number] IMPRESSION: BI-RADS: 3-Probably Benign FOLLOW UP: 6 Month Follow-up Patient to return in 6 months for annual diagnostic mammogram in December 2020. No persistent abnormality was noted on today's ultrasound or mammographic evaluat ion.
--- NOTE | 2021-07-03 13:23 | US_ITS ---
WS: [id number] Diagnostic RIGHT MAMMOGRAM with CAD RIGHT BREAST ULTRASOUND HISTORY: 6 MO F/u; hx OF BREAST CA COMPARISON: 12/03/2020, 12/15/2019 and 12/15/2017 RIGHT MAMMOGRAM: Spot compression views and true ML. The asymmetry in the lateral RIGHT breast is less apparent today. This asymmetry is adjacent to a barber or biopsy clip. Additional calcification throughout the RIGHT breast. RIGHT BREAST ULTRASOUND 2-D and color Doppler imaging submitted. Ultrasound is directed to the lateral RIGHT breast. The previously described cyst associated with the biopsy clip seen on the prior ultrasound is no longer present. There is no soft tissue mass or disto rtion identified on today's ultrasound examination. US/US breast RT limited* [id number] IMPRESSION: BI-RADS: 3-Probably Benign FOLLOW UP: 6 Month Follow-up Patient to return in 6 months for annual diagnostic mammogram in December 2020. No persistent abnormality was noted on today's ultrasound or mammographic evaluat ion.
== END 2021-07-03 12:47 | disposition home or self-care (01) ==
LOC: RADSHAW 12:50
PROVIDERS: PCP Family Medicine; Visit Provider Internal Medicine Medical Oncology
DX: Z85.3 Personal history of malignant neoplasm of breast (principal); N64.89 Other specified disorders of breast; I10 Essential (primary) hypertension
CPT/HCPCS: 76642; 77065; 80053; 82607; 85025

== ENCOUNTER 2021-08-07 14:52 | Outpatient (CLI) | payer MEDICARE, OTHER, SELFPAY ==
[2021-08-07 15:45] LABS: Basophils # 0.1 10^3/uL (0.0-0.1); Basophils % 0.7 %; Eosinophils # 0.1 10^3/uL (0.0-0.8); Hematocrit 35.5 % (37.0-47.0); Hemoglobin 11.3 g/dL (11.5-15.3); Lymphocytes # 1.2 10^3/uL (0.8-4.8); Lymphocytes % 17.2 %; Mean Corpuscular HGB Conc 31.8 g/dL (30.0-36.0); Mean Corpuscular Hemoglobin 31.9 pg (28.0-34.0); Mean Corpuscular Volume 100.3 fl (81-99); Mean Platelet Volume 9.5 fL (7.4-10.4); Monocytes # 0.7 10^3/uL (0.2-0.9); Monocytes % 9.7 %; Neutrophils # 4.74 10^3/uL (1.8-7.7); Neutrophils % 71.1 %; Nucleated Red Blood Cells % 0 %; Platelet Count 271 10^3/cmm (130-400); Red Blood Count 3.54 10^6/uL (4.1-5.3); Red Cell Distribution Width 14.1 % (12.1-15.1); White Blood Count 6.7 10^3/uL (4.0-10.0)
[2021-08-07 16:33] LABS: Albumin Level 3.6 g/dL (3.5-5.2); Blood Urea Nitrogen 16 mg/dL (8-23); Calcium 8.5 mg/dL (8.5-10.5); Calcium 8.6 mg/dL (8.5-10.5); Chloride 102 mmol/L (98-107); Glucose 96 mg/dL (65-115); Phosphorus 2.8 mg/dL (2.5-4.5); Sodium 142 mmol/L (136-145)
[2021-08-07 16:34] LABS: Parathyroid Hormone 102.8 pg/mL (15-65)
[2021-08-07 16:57] LABS: Creatinine Urine, Random 183 mg/dL (28-217); Microalbumin Random Urine 8 ug/dL (0-20)
[2021-08-07 16:58] LABS: Microalbum Creatinine Ratio Ur 44 mg/dL (0-20)
[2021-08-07 21:06] LABS: Carbon Dioxide 29 mmol/L (22-29)
== END 2021-08-07 14:53 | disposition home or self-care (01) ==
LOC: LAB 15:00
PROVIDERS: PCP Family Medicine; Visit Provider Internal Medicine Nephrology
DX: N18.32 Chronic kidney disease, stage 3b (principal)
CPT/HCPCS: 80069; 82044; 82310; 83970; 85025

== ENCOUNTER 2021-08-09 08:18 | Emergency (ER) | payer MEDICARE, OTHER, SELFPAY ==
[2021-08-09 08:30] VITALS: BP 236/88; PULSE 65; RESP 17; TEMP 36.6; O2SAT 97; BMI 29.7
[2021-08-09 08:57] LABS: Add Urine Microscopic? YES; Bilirubin Urine Neg (Negative); Blood Urine 3+ (Negative); Glucose Urine UA Norm (Normal); Ketones Urine Negative (Negative); Leukocyte Esterase Urine 2+ (Negative); Nitrate Urine Positive (Negative); Protein Urine Trace (Negative); Specific Gravity, Urine 1.015 (1.005-1.030); Urine Appearance Cloudy (CLEAR); Urine Color Yellow (Yellow); Urobilinogen Urine Norm (Negative); pH Urine 5 (5-7)
--- NOTE | 2021-08-09 09:10 | XR_ITS ---
WS: [id number] Left hip, AP and frog-leg views, 08/09/2021 Clinical Data: pain Comparison: None. Findings: No fractures or dislocations are seen. The left hip joint is intact. There is an acetabular lip. The left hip shows no erosion, sclerosis, narrowing or cyst formation. The soft tissues are not remarkabl e. The adjacent pelvis is normal. XR/XR hip LT 2-3V wo/w pel* [id number] Impression: Minimal osteoarthritis of the left hip. Tonnis classification: grade 1: sclerosis of femoral head and acetabulum or sli ght joint space narrowing or slight lipping at joint margins
--- NOTE | 2021-08-09 09:10 | XR_ITS ---
WS: [id number] Portable AP upright chest, 08/09/2021 Clinical Data: dyspnea/cough Comparison: PA and lateral chest, 08/02/2018. Findings: No nodules, masses or effusions are seen. The heart is enlarged. The pulmonary vascularity is not increased. No pneumonia or pneumothorax is seen. The aortic arch and descending thoracic aorta show calcification and mild tortuosity. There are surgical clips adjacent to the superior trachea an d supraclavicular area. There is severe osteoarthritic change of the right shoulder. XR/XR chest 1V portable [id number] Impression: Atherosclerosis and cardiomegaly.
[2021-08-09 09:17] LABS: Add Urine Culture? Yes; Bacteria Urine 1+ /hpf; RBC Urine 40-50 /hpf (0-2); WBC Urine >100 /hpf (0-5)
[2021-08-09 09:18] VITALS: PULSE 56; O2SAT 96
[2021-08-09 09:43] VITALS: BP 204/122; PULSE 63; O2SAT 97
[2021-08-09] MEDS: amlodipine 10 mg Tablet PO (10:04)
[2021-08-09] MEDS: hyDRALAzine 20 mg/mL INJ 1 mL IVP (10:16)
--- NOTE | 2021-08-09 10:19 | W.ED.EXTPRO ---
HPI - Extremity Problem General: Chief complaint: Extremity Problem,Nontraumatic Stated complaint: L HIP PAIN Time Seen by Provider: 08/09/21 08:23 History of Present Illness: HPI Narrative: 86-year-old female presents emergency room via private vehicle. She has several complaints since she is coughing and something stuck in her throat says it is a chronic issue she feels like she needs to cough and clear something out of her throat she also complaining some left hip pain. Her reports she had severe anxiety this morning the course of talking to her becomes obvious she has some mild cognitive deficits. Her confirms this. They deny any recent fever sweats or chills she states the cough is been a longstanding issue where she feels like she needs to clear something of her throat but can never get it out it is very aggravating to her and became much more aggravating his ER course went on. She denies any trauma or fall. She has tenderness of the lateral aspect of the hip no previous injury to the hip. She denies any dysuria urgency or frequency bowel or bladder issues. MD Complaint: joint pain Onset (ago): day(s) Pain Consistency: constant Location: right and lower extremity (Hip) Quality: aching Radiation: none Relieving factors: immobilization Exacerbating factors: weight bearing and palpation Associated symptoms: Reports arthralgias; Deny chest pain, fever(s), myalgias, rash or short of breath Review of Systems Const: Denies: fever(s) ENMT: Denies: throat pain, ear or mastoid pain, nasal discharge or nasal congestion Card: Denies: chest pain Resp: Denies: dyspnea, productive cough or non-productive cough GI: Denies: abdominal pain, nausea, vomiting, hematemesis, coffee ground emesis, diarrhea, constipation, bloating, hematochezia or melena : Denies: flank pain, difficulty voiding, dysuria, urinary frequency or urinary urgency Skin/Breast: Denies: rash PFSH ED PFSH: Medical History Anxiety Aortic valve disease Aortic sclerosis Atelectasis Carotid stenosis, bilateral CKD (chronic kidney disease) Essential hypertension GERD (gastroesophageal reflux disease) Glucose intolerance Gout History of breast cancer Hyperlipidemia Hyperparathyroidism Palpitations Rectocele Vitamin B12 deficiency Surgical History S/P hysterectomy S/P knee replacement S/P lumpectomy, right breast S/P parathyroidectomy S/P tonsillectomy Family History Brother Hypertension Sister Cancer BREAST Father Myocardial infarction Mother , AGE 75 Histoplasmosis Social History Smoking and tobacco status: former smoker Second hand smoke exposure: No Smoking risk assessment/counseling performed?: No Alcohol intake: never Desire information about alcohol rehabilitation?: No Counseling given: No Desire information about substance/drug rehabilitation?: No Counseling given: No Adopted: No Caregiver/support person: Yes Lives independently: Yes Household members: family Housing: House Marital status: / Number of children: 1 service: No Current occupational status: retired History of recent travel: No Current gender identity: Female Physical Exam Const: COMMON NORMALS: no acute distress GENERAL APPEARANCE: cooperative and comfortable ORIENTATION/CONSCIOUSNESS: Yes awake, Yes oriented to person, Yes oriented to place and Yes oriented to time HENMT: COMMON NORMALS: normocephalic, atraumatic and hearing grossly normal bilaterally HEAD & SCALP: normocephalic and atraumatic Neck/C-Spine: COMMON NORMALS: no JVD Resp: COMMON NORMALS: normal respiratory effort, No retractions, No use of accessory muscles and clear to auscultation bilaterally AUSCULTATION: clear to auscultation bilaterally Cardio: COMMON NORMALS: no JVD, regular rate, regular rhythm and No murmurs present (Cardio) RATE: regular rate RHYTHM: regular rhythm GI: COMMON NORMALS: Soft to palpation and No hepatosplenomegaly present AUSCULTATION: Yes normoactive bowel sounds PALPATION: Yes Soft to palpation, No Tenderness to palpation present (GI), No Guarding due to palpation present (GI) and Yes No hepatosplenomegaly present Extremity: COMMON NORMALS: normal to inspection, capillary refill normal, no clubbing, cyanosis or edema, no calf tenderness and no pedal edema Neuro: SENSORIUM/ORIENTATION: Yes oriented to person, Yes oriented to place and Yes oriented to time Skin: COMMON NORMALS: no rashes or lesions noted GENERAL SKIN EXAM: no rashes or lesions noted Course Vital Signs: Vital signs: Vital Signs Temperature 97.9 F 08/09/21 08:30 Pulse Rate 63 08/09/21 09:43 Respiratory Rate 17 08/09/21 08:30 Blood Pressure 176/98 08/09/21 11:02 Pulse Oximetry 97 08/09/21 09:43 MDM - Extremity (Nontraumatic) MDM Narrative: Medical decision making narrative: Reviewed labs and imaging with the patient. She does have a cystitis. This is a greater trochanteric bursitis on the left hip that is causing her discomfort. I was very concerned about her blood pressure however she became really agitated and I want to stay to really have anything to force her to remain here at this point. We did manage to give her some blood pressure medications here and I prescribed her some amlodipine 10 mg daily as well as Macrobid 100 twice daily for the bladder infection would have preferred to have kept her here for longer period of time monitoring her but she is refusing. Her chest x-ray is normal she is complaining of coughing up sputum which is not really coughing anything up she says a sensation of like a globus pallidus where she needs to cough anything much is not able to get it up. She does not really have any nasal drainage at this point I wonder if she may have significant reflux contributing to this recommend she follow-up with that and with her blood pressure with primary care doctor within a week. Lab Data: Labs: Lab Results 08/09/21 08:44 Urine Color Yellow (Yellow) Urine Appearance Cloudy (CLEAR) Urine pH 5 (5-7) Ur Specific Gravit y 1.015 (1.005-1.030) Urine Protein Trace (Negative) Urine Glucose (UA) Norm (Normal) Urine Ketones Negative (Negative) Urine Blood 3+ H (Negative) Urine Nitrate Positive H (Negative) Urine Bilirubin Neg (Negative) Urine Urobilinogen Norm mg/dL mg/dL (Negative) Ur Leukocyte Sofia ase 2+ H (Negative) Urine RBC 40-50 /hpf H /hpf (0-2) Urine WBC >100 /hpf H /hpf (0-5) Ur Squamous Epith Cells 5-10 /hpf H /hpf (0-5) Amorphous Sediment Not Reportable Urine Bacteria 1+ /hpf H /hpf (NONE) Discharge Plan Discharge Patient Disposition: Home Clinical Impression: Cystitis, Essential hypertension, Dementia, vascular Condition: Stable Prescriptions: New Macrobid 100 mg capsule 100 mg PO BID 7 Days Qty: 14 RF: 0 amlodipine 10 mg tablet 10 mg PO DAILY Qty: 30 RF: 0 No Action atorvastatin 40 mg tablet 40 mg PO QDAY 90 Days Qty: 90 RF: 3 cyanocobalamin (vitamin B-12) 1,000 mcg/mL solution 1,000 mcg IM .monthly Qty: 1 RF: 2 donepezil [Aricept] 5 mg tablet 5 mg PO DAILY Qty: 30 RF: 2 losartan [Cozaar] 100 mg tablet 100 mg PO DAILY Qty: 30 RF: 2 metoprolol tartrate 25 mg tablet 25 mg PO BID Qty: 60 RF: 2 venlafaxine 37.5 mg capsule,extended release 24hr 37.5 mg PO QAM Qty: 30 RF: 2 cholecalciferol (vitamin D3) 25 mcg (1,000 unit) capsule 1,000 unit PO QDAY Qty: 30 RF: 2 aspirin [Adult Low Dose Aspirin] 81 mg tablet,delayed release (DR/EC) 81 mg PO QDAY RF: 0 multivitamin [Daily Multi-Vitamin] Tablet 1 tab PO QAM RF: 0 potassium chloride 8 mEq tablet extended release 8 meq PO DAILY Qty: 30 RF: 2 Discharge Orders: Discharge ED (Routine); Ordered 08/09/21 Ordered By: Cruz Alvarez Referrals: Sarah Hernandez, [facility] [Primary Care Provider] - Discharge Diet: Usual diet Discharge Activity: Increase activity as tolerated Patient Instructions: Opioid Safety Activity Restrictions/Additional Instructions: Follow-up with your primary care doctor to reevaluate blood pressure within the next week. Coding Level of Care Code ED Diamond Die Polisher for Chg Fwd Exam Comprehensive
[2021-08-09] MEDS: cefTRIAXone 1,000 MG in lidocaine 1% 2.1 ML 5 MG IM (10:24)
[2021-08-09 11:02] VITALS: BP 176/98
== END 2021-08-09 11:04 | disposition home or self-care (01) ==
PROVIDERS: Emergency Provider Family Medicine; PCP Nurse Practitioner
DX: N30.90 Cystitis, unspecified without hematuria (principal); I10 Essential (primary) hypertension; F01.50 Vascular dementia, unspecified severity, without behavioral disturbance, psychotic disturbance, mood disturbance, and anxiety; Z79.82 Long term (current) use of aspirin; Z85.3 Personal history of malignant neoplasm of breast; E78.5 Hyperlipidemia, unspecified; Z87.891 Personal history of nicotine dependence
CPT/HCPCS: 71045; 73502; 81001; 87077; 87086; 87186; 96365; 96372; 96375; 99283; J0360; J0696

== ENCOUNTER → 2021-08-13 16:35 | Outpatient (BNVA) | payer MEDICARE, OTHER, SELFPAY | PROVIDERS: PCP Nurse Practitioner; Visit Provider Nurse Practitioner | DX: I10 Essential (primary) hypertension (principal); F01.50 Vascular dementia, unspecified severity, without behavioral disturbance, psychotic disturbance, mood disturbance, and anxiety | CPT/HCPCS: 80053; 84443; 85025 ==

== ENCOUNTER → 2021-11-25 12:26 | Outpatient (BNVA) | payer MEDICARE, OTHER, SELFPAY | PROVIDERS: PCP Nurse Practitioner; Referring Provider Nurse Practitioner; Visit Provider Specialist | DX: G30.9 Alzheimer's disease, unspecified (principal); F02.80 Dementia in other diseases classified elsewhere, unspecified severity, without behavioral disturbance, psychotic disturbance, mood disturbance, and anxiety; D75.89 Other specified diseases of blood and blood-forming organs | CPT/HCPCS: 96116; 99204; 99205 ==

== ENCOUNTER → 2022-02-20 13:36 | Outpatient (BNVA) | payer MEDICARE, OTHER, SELFPAY | PROVIDERS: PCP Nurse Practitioner; Visit Provider Specialist | DX: G30.9 Alzheimer's disease, unspecified (principal); F02.81 Dementia in other diseases classified elsewhere, unspecified severity, with behavioral disturbance; E53.8 Deficiency of other specified B group vitamins | CPT/HCPCS: 99215 ==

== ENCOUNTER → 2022-03-17 13:58 | Outpatient (BNVA) | payer MEDICARE, OTHER, SELFPAY | PROVIDERS: PCP Nurse Practitioner; Visit Provider Nurse Practitioner | DX: E78.5 Hyperlipidemia, unspecified (principal); R41.0 Disorientation, unspecified; R82.90 Unspecified abnormal findings in urine; F01.50 Vascular dementia, unspecified severity, without behavioral disturbance, psychotic disturbance, mood disturbance, and anxiety | CPT/HCPCS: 80053; 80061; 81000; 85025; 87077; 87086; 87184 ==

== ENCOUNTER → 2022-04-23 10:22 | Outpatient (BNVA) | payer MEDICARE, OTHER, SELFPAY | PROVIDERS: PCP Nurse Practitioner; Visit Provider Nurse Practitioner Family | DX: R30.0 Dysuria (principal); B37.3 Candidiasis of vulva and vagina | CPT/HCPCS: 81000 ==

== ENCOUNTER 2022-06-10 11:03 | Observation (INO) | payer MEDICARE, OTHER, SELFPAY ==
[2022-06-10] VITALS (8 sets, daily range): BP systolic 100–213; BP diastolic 49–100; PULSE 72–104; RESP 14–21; TEMP 36.8–37.3; O2SAT 94–97
--- NOTE | 2022-06-10 11:14 | XRR_ITS ---
PROCEDURE INFORMATION: Exam: XR Chest Exam date and time: 06/10/2022 11:22 AM Age: 87 years old Clinical indication: Other: AMS TECHNIQUE: Imaging protocol: Radiologic exam of the chest. Views: 1 view. COMPARISON: CR XR chest 1V portable [id number] 08/09/2021 9:12 AM FINDINGS: Lungs: Unremarkable. No consolidation. Pleural spaces: Unremarkable. No pleural effusion. No pneumothorax. Heart/Mediastinum: Cardiomegaly. Bones/joints: Remote left-sided rib fractures. XR/XR chest 1V portable [id number] IMPRESSION: No acute cardiopulmonary abnormality.
--- NOTE | 2022-06-10 11:14 | CT_ITS ---
WS: [id number] CT HEAD TECHNIQUE: Noncontrast CT of the head obtained from the skullbase to the vertex. CLINICAL INFORMATION: ams COMPARISON: CT December 26, 2020 DLP: 1035.[address] scans at [facility] use at least one of these dose optimization techniques: automated e xposure control; mA and/or kV adjustment per patient size (includes targeted exams where dose is matc hed to clinical indication); or iterative reconstruction. FINDINGS: No evidence of intracranial hemorrhage or mass effect. Ventricular system and basal cisterns are ayala nt. Mild small vessel changes with moderate parenchymal volume loss. No extra-axial fluid collections . No evidence of mass or mass effect. Mild cavernous carotid calcification. Paranasal sinuses and mastoid air cells are well aerated. .Normal visualized soft tissues. CT/CT head wo con* [id number] IMPRESSION: 1. No evidence of intracranial hemorrhage or mass effect. 2. Mild small vessel changes with moderate parenchymal volume loss 3. No acute intracranial findings.
--- NOTE | 2022-06-10 11:17 | W.ED.GENADLT ---
HPI - General Adult General: Chief complaint: Altered Mental Status Stated complaint: AMS Time Seen by Provider: 06/10/22 11:05 History of Present Illness: Patient is an 87-year-old female with a history of baseline Alzheimer's dementia,CKD, gout, hyperlipidemia, hypertension, hyperparathyroidism who presents to the emergency room for for evaluation altered mental status. Per EMS, patient was recently getting taken care of by his brother cannot take care of her anymore. Patient was assumed guardianship by [facility]. Per conversation with Eddi of the state, patient will need medical clearance to go to a half-way full-time. Onset: chronic Duration:ongoing Location:home Severity:moderate Associated symptoms: Deny chest pain, dyspnea, nausea, rash, palpitations or vomiting Review of Systems Const: Denies: fever(s) or chills Eyes: Denies: change in vision ENMT: Denies: mouth pain Card: Denies: chest pain or palpitations Resp: Denies: dyspnea or non-productive cough GI: Denies: abdominal pain, nausea, vomiting or diarrhea : Denies: dysuria Musc: Denies: extremity pain Skin/Breast: Denies: rash or new lesions Neuro: Reports: other (+confusion/ams); Denies: weakness in extremities Psych: Reports: other (Normal mood) Amaury/Lymph: Denies: easy bruising PFSH ED PFSH: Medical History Anxiety Aortic valve disease Aortic sclerosis Atelectasis Carotid stenosis, bilateral CKD (chronic kidney disease) Essential hypertension GERD (gastroesophageal reflux disease) Glucose intolerance Gout History of breast cancer Hyperlipidemia Hyperparathyroidism Palpitations Rectocele Vitamin B12 deficiency Surgical History S/P hysterectomy S/P knee replacement S/P lumpectomy, right breast S/P parathyroidectomy S/P tonsillectomy Family History Brother Hypertension Sister Cancer BREAST Father Myocardial infarction Mother , AGE 75 Histoplasmosis Social History Smoking and tobacco status: never smoked Second hand smoke exposure: No Smoking risk assessment/counseling performed?: No Alcohol intake: never Desire information about alcohol rehabilitation?: No Counseling given: No Desire information about substance/drug rehabilitation?: No Counseling given: No Adopted: No Caregiver/support person: Yes Lives independently: Yes Household members: family Housing: House Marital status: / Number of children: 1 service: No Current occupational status: retired History of recent travel: No Current gender identity: Female Physical Exam Const: COMMON NORMALS: alert HENMT: COMMON NORMALS: atraumatic HEAD & SCALP: atraumatic MOUTH: moist mucous membranes not abnormal Eye: COMMON NORMALS: EOMs intact bilaterally and conjunctivae normal CONJUNCTIVA: Yes conjunctivae normal Neck/C-Spine: COMMON NORMALS: full ROM and supple Resp: COMMON NORMALS: normal respiratory effort and clear to auscultation bilaterally AUSCULTATION: clear to auscultation bilaterally Cardio: COMMON NORMALS: regular rate RATE: regular rate GI: COMMON NORMALS: Soft to palpation and non-tender PALPATION: Yes Soft to palpation Extremity: COMMON NORMALS: full ROM Neuro: SENSORIUM/ORIENTATION: Yes alert MOTOR EXAM: No Abnormal motor strength present and Other motor observations present (no focal motor deficits) OTHER: AAOx1(self), moving all extremities, cranial nerves II through XII grossly intact, patient is following commands, strength 5 out of 5 in all extremities, she is able to follow commands, GCS 14 Psych: COMMON NORMALS: speech normal SPEECH: Yes normal speech MOOD & AFFECT: Yes euthymic mood Course Vital Signs: Vital signs: Vital Signs Temperature 97.6 F 06/12/22 08:53 Pulse Rate 67 06/12/22 08:53 Respiratory Rate 15 06/12/22 08:53 Blood Pressure 111/60 06/12/22 08:53 Pulse Oximetry 96 06/12/22 08:53 Oxygen Delivery Me thod 06/12/22 08:23 [facility] - General Adult Medical Decision Making Patient is an 87-year-old female with a history of baseline Alzheimer's dementia,CKD, gout, hyperlipidemia, hypertension, hyperparathyroidism who presents to the emergency room for for evaluation altered mental status. On physical exam, patient is AAO x1, rest of exam unremarkable. Neuro exam grossly intact. White count of 4.3. Creatinine 1.7 similar to baseline. Troponin delta less than 5. He has no complaints of chest pain. EKG is nonischemic do not suspect ACS. CT head neck negative. Patient is COVID-positive today. No signs of respiratory distress. No signs of dehydration. Patient received remdesivir. Patient admitted to hospital for half-way placement and altered mental status. Disposition: admission Lab Data : 06/12/22 05:16 06/12/22 05:16 Radiology Impressions Chest X-Ray 06/10/22 11:14 IMPRESSION: No acute cardiopulmonary abnormality. Head CT 06/10/22 11:14 IMPRESSION: 1. No evidence of intracranial hemorrhage or mass effect. 2. Mild small vessel changes with moderate parenchymal volume loss 3. No acute intracranial findings. Laboratory Results WBC 4.3 10^3/uL (4.0-10.0) 06/10/22 11:19 RBC 3.91 10^6/uL (4.1-5.3) L 06/10/22 11:19 Hgb 12.5 g/dL (11.5-15.3) 06/10/22 11:19 Hct 38.8 % (37.0-47.0) 06/10/22 11:19 MCV 99.2 fl (81-99) H 06/10/22 11:19 MCH 32.0 pg (28.0-34.0) 06/10/22 11:19 MCHC 32.2 g/dL (30.0-36.0) 06/10/22 11:19 RDW 12.8 % (12.1-15.1) 06/10/22 11:19 Plt Count 193 10^3/cmm (130-400) 06/10/22 11:19 MPV 9.6 fL (7.4-10.4) 06/10/22 11:19 Neut % (Auto) 61.0 % 06/10/22 11:19 Lymph % (Auto) 12.0 % 06/10/22 11:19 [place] % (Auto) 26.3 % 06/10/22 11:19 Eos % (Auto) 0.0 % 06/10/22 11:19 Baso % (Auto) 0.7 % 06/10/22 11:19 Neut # (Auto) 2.60 10^3/uL (1.8-7.7) 06/10/22 11:19 Lymph # (Auto) 0.5 10^3/uL (0.8-4.8) L 06/10/22 11:19 [place] # (Auto) 1.1 10^3/uL (0.2-0.9) H 06/10/22 11:19 Eos # (Auto) 0.0 10^3/uL (0.0-0.8) 06/10/22 11:19 Baso # (Auto) 0.0 10^3/uL (0.0-0.1) 06/10/22 11:19 Nucleated RBC % (auto) 0 % 06/10/22 11:19 Nucleated RBCs # 0.0 /100WBC 06/10/22 11:19 Sodium 134 mmol/L (136-145) L 06/10/22 11:19 Potassium 4.6 mmol/L (3.5-5.1) 06/10/22 11:19 Chloride 98 mmol/L (98-107) 06/10/22 11:19 Carbon Dioxide 27 mmol/L (22-29) 06/10/22 11:19 Anion Gap 13.6 (5-19) 06/10/22 11:19 BUN 28 mg/dL (8-23) H 06/10/22 11:19 Creatinine 1.7 mg/dL (0.5-0.9) H 06/10/22 11:19 GFR Calculation Not Reportable 06/10/22 11:19 Glucose 82 mg/dL (65-115) 06/10/22 11:19 Calculated Osmolality 283 mOsm/kg (285-295) L 06/10/22 11:19 Calcium 8.7 mg/dL (8.5-10.5) 06/10/22 11:19 Total Bilirubin 0.4 mg/dL (0.15-1.2) 06/10/22 11:19 AST 27 U/L (0-32) 06/10/22 11:19 ALT 14 U/L (0-33) 06/10/22 11:19 Alkaline Phosphatase 52 U/L (35-105) 06/10/22 11:19 Troponin T Baseline 49 ng/L (0-10) H 06/10/22 11:19 Troponin T 120 Minute 44.00 ng/L (0-10) H 06/10/22 13:10 Delta Troponin T -5.00 ABS# (0-10) L 06/10/22 13:10 Total Protein 7.3 g/dL (6.6-8.7) 06/10/22 11:19 Albumin 4.0 g/dL (3.5-5.2) 06/10/22 11:19 Globulin 3.3 g/dL (1.3-4.6) 06/10/22 11:19 Lipase 58 U/L (13-60) 06/10/22 11:19 Procalcitonin 0.17 ng/mL (0-0.5) 06/10/22 13:10 TSH 0.85 uIU/mL (0.27-4.20) 06/10/22 11:19 Free T4 1.08 ng/dL (0.82-1.77) 06/10/22 11:19 Urine Color Yellow (Yellow) 06/10/22 11:52 Urine Appearance Hazy (CLEAR) A 06/10/22 11:52 Urine pH 5 (5-7) 06/10/22 11:52 Ur Specific [place] 1.020 (1.005-1.030) 06/10/22 11:52 Urine Protein Trace (Negative) 06/10/22 11:52 Urine Glucose (UA) Norm (Normal) 06/10/22 11:52 Urine Ketones 1+ (Negative) H 06/10/22 11:52 Urine Blood 2+ (Negative) H 06/10/22 11:52 Urine Nitrate Negative (Negative) 06/10/22 11:52 Urine Bilirubin Neg (Negative) 06/10/22 11:52 Urine Urobilinogen 1 mg/dL (Negative) H 06/10/22 11:52 Ur Leukocyte Esterase Negative (Negative) 06/10/22 11:52 Urine RBC 0-4 /hpf (0-2) H 06/10/22 11:52 Urine WBC 0-4 /hpf (0-5) H 06/10/22 11:52 Ur Squamous Epith Cells 0-4 /hpf (0-5) H 06/10/22 11:52 Amorphous Sediment Not Reportable 06/10/22 11:52 Urine Bacteria 2+ /hpf (NONE) H 06/10/22 11:52 Salicylates < 0.3 mg/dL (3-10) L 06/10/22 11:19 Acetaminophen < 5.0 ug/mL (10-30) L 06/10/22 11:19 Coronavirus 229E (PCR) Not detected (NOT DETECT) 06/10/22 12:25 SARS-CoV-2 (PCR) Detected (NOT DETECT) A 06/10/22 12:25 Imaging Data Other Imaging: Radiologist's impression: [place] [address] CT Scan Report Signed Patient: Lilliam Truong Unit #: [id number] : 1935 Age/Sex: 87 / F ADM Date: 06/10/22 Loc: ER Room/Bed: Attending Dr: Ordering Provider/Ordering MD: Jany Villagran MD Date of Service: 06/10/22 Procedure(s): CT head wo con* [id number] Accession Number(s): [id number] Report Number: [id number] WS: [id number] CT HEAD TECHNIQUE: Noncontrast CT of the head obtained from the skullbase to the vertex. CLINICAL INFORMATION: ams COMPARISON: CT December 26, 2020 DLP: 1035.[address] scans at [facility] use at least one of these dose optimization techniques: automated exposure control; mA and/or kV adjustment per patient size (includes targeted exams where dose is matched to clinical indication); or iterative reconstruction. FINDINGS: No evidence of intracranial hemorrhage or mass effect. Ventricular system and basal cisterns are patent. Mild small vessel changes with moderate parenchymal volume loss. No extra-axial fluid collections. No evidence of mass or mass effect. Mild cavernous carotid calcification. Paranasal sinuses and mastoid air cells are well aerated. .Normal visualized soft tissues. CT/CT head wo con* [id number] IMPRESSION: ? 1.? No evidence of intracranial hemorrhage or mass effect. 2.? Mild small vessel changes with moderate parenchymal volume loss 3.? No acute intracranial findings. ? Dictated By: Dwight Montague MD Signed By: Dwight Montague MD Signed Date/Time: 06/10/22 1153 DD/ [address] [address]255 XRay Report Signed Patient: Lilliam Truong Unit #: [id number] : 1935 [id number] Age/Sex: 87 / F ADM Date: 06/10/22 Loc: ER Room/Bed: Attending Dr: Ordering Provider/Ordering MD: Jany Villagran MD Date of Service: 06/10/22 Procedure(s): XR chest 1V portable [id number] Accession Number(s): [id number] Report Number: [id number] PROCEDURE INFORMATION: Exam: XR Chest Exam date and time: 06/10/2022 11:22 AM Age: 87 years old Clinical indication: Other: AMS TECHNIQUE: Imaging protocol: Radiologic exam of the chest. Views: 1 view. COMPARISON: CR XR chest 1V portable [id number] 08/09/2021 9:12 AM FINDINGS: Lungs: Unremarkable. No consolidation. Pleural spaces: Unremarkable. No pleural effusion. No pneumothorax. Heart/Mediastinum: Cardiomegaly. Bones/joints: Remote left-sided rib fractures. XR/XR chest 1V portable [id number] IMPRESSION: No acute cardiopulmonary abnormality. ? Dictated By: Nicky Colby MD Signed By: Nicky Colby MD Signed Date/Time: 06/10/22 1139 DD/ 1122 Discharge Plan Discharge Patient Disposition: Admitted As Inpatient Admit Provider: Bandar Olsen Clinical Impression: Altered mental status, COVID Condition: Stable Discharge Diet: Advance as tolerated Discharge Activity: Increase activity as tolerated Coding Level of Care Code ED Blind Aide for Chg Fwd Exam Comprehensive
[2022-06-10 11:32] LABS: Basophils % 0.7 %; Hematocrit 38.8 % (37.0-47.0); Hemoglobin 12.5 g/dL (11.5-15.3); Lymphocytes # 0.5 10^3/uL (0.8-4.8); Mean Corpuscular HGB Conc 32.2 g/dL (30.0-36.0); Mean Corpuscular Volume 99.2 fl (81-99); Mean Platelet Volume 9.6 fL (7.4-10.4); Monocytes # 1.1 10^3/uL (0.2-0.9); Monocytes % 26.3 %; Nucleated Red Blood Cells % 0 %; Platelet Count 193 10^3/cmm (130-400); Red Blood Count 3.91 10^6/uL (4.1-5.3); Red Cell Distribution Width 12.8 % (12.1-15.1); White Blood Count 4.3 10^3/uL (4.0-10.0)
[2022-06-10 11:53] LABS: Troponin(5th) Baseline 49 ng/L (0-10)
--- NOTE | 2022-06-10 11:55 | ECG_ITS ---
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 Measurements Intervals [place] Rate: 72 P: 89 MA: 172 QRS: 2 QRSD: 90 T: 105 QT: 373 QTc: 409 Interpretive Statements SINUS RHYTHM ST DEVIATION AND MODERATE T-WAVE ABNORMALITY, CONSIDER LATERAL ISCHEMIA [-0.1+ mV T-WAVE IN I/aVL/V5/V6] Compared to ECG 08/02/2018 17:50:20 Possible ischemia now present T-wave abnormality still present Electronically Signed On 06-10-2022 16:33:24 CDT by Renay Parnell M.D. [id number]
[2022-06-10 12:01] LABS: Alanine Aminotransferase 14 U/L (0-33); Alkaline Phosphatase 52 U/L (35-105); Anion Gap 13.6 (5-19); Aspartate Amino Transferase 27 U/L (0-32); Blood Urea Nitrogen 28 mg/dL (8-23); Calcium 8.7 mg/dL (8.5-10.5); Carbon Dioxide 27 mmol/L (22-29); Chloride 98 mmol/L (98-107); Globulin 3.3 g/dL (1.3-4.6); Glucose 82 mg/dL (65-115); Lipase 58 U/L (13-60); Osmolality Calculated 283 mOsm/kg (285-295); Potassium 4.6 mmol/L (3.5-5.1); Salicylate < 0.3 mg/dL (3-10); Sodium 134 mmol/L (136-145); Thyroid Stimulating Hormone 0.85 uIU/mL (0.27-4.20); Total Bilirubin 0.4 mg/dL (0.15-1.2); Total Protein 7.3 g/dL (6.6-8.7)
[2022-06-10 12:02] LABS: Acetaminophen < 5.0 ug/mL (10-30)
[2022-06-10] MEDS: amlodipine 5 mg Tablet PO (12:16)
[2022-06-10 12:24] LABS: Bilirubin Urine Neg (Negative); Blood Urine 2+ (Negative); Glucose Urine UA Norm (Normal); Ketones Urine 1+ (Negative); Nitrate Urine Negative (Negative); Protein Urine Trace (Negative); Urine Appearance Hazy (CLEAR); Urine Color Yellow (Yellow); Urobilinogen Urine 1 mg/dL (Negative); pH Urine 5 (5-7)
[2022-06-10 12:25] LABS: Add Urine Culture? Yes; Add Urine Microscopic? YES; Bacteria Urine 2+ /hpf; Leukocyte Esterase Urine Negative (Negative); RBC Urine 0-4 /hpf (0-2); Squamous Epithelial Cell Urine 0-4 /hpf (0-5); WBC Urine 0-4 /hpf (0-5)
[2022-06-10 12:51] LABS: Free T4 Free Thyroxine 1.08 ng/dL (0.82-1.77)
--- NOTE | 2022-06-10 13:14 | ECG_ITS ---
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 Measurements Intervals [place] Rate: 66 P: 82 DC: 180 QRS: 22 QRSD: 87 T: 90 QT: 374 QTc: 394 Interpretive Statements SINUS RHYTHM WITH SINUS ARRHYTHMIA NONSPECIFIC T-WAVE ABNORMALITY Compared to ECG 06/10/2022 11:55:48 Possible ischemia no longer present T-wave abnormality still present Electronically Signed On 06-10-2022 16:42:22 CDT by Renay Parnell M.D. [id number]
[2022-06-10] MEDS: NIFEdipine ER (24 hr) 30 mg Tablet 90 MG PO (14:03)
[2022-06-10] MEDS: hyDRALAzine 20 mg/mL INJ 1 mL IVP (14:07)
--- NOTE | 2022-06-10 14:44 | DCPLANNER ---
Addendum entered by Princess Herbert 06/11/22 15:29: 3:15 - Patients guardian Kenyatta Moncada, called renal case manager stating that she has a one on one sitter arrangements made for the patient from 8:00 on 06.12.22 until patient comes off of quarantine this weekend. recreation establishment manager was told that the guardian was not able to find a sitter for patient for tonight. Patient will stay at hospital until 8:00 in the morning when Anayeli from [facility] is to be at the ER to pick patient up and will transport patient to the facility. Addendum entered by Princess Herbert 06/11/22 14:04: 1:30 - renal case manager spoke with Anayeli at [facility], was told that the facility did accept patient but is waiting on the guardian to find one on one sitters for the patient for the next 5 days, due to patient having COVID and not being able to leave her room. 1:45 - renal case manager spoke with patients Kenyatta hunter, was told that she has been in contact with [facility] and [facility] to see if either of the facilities have the staff for one on one for the next 5 days. Kenyatta will call renal case manager when she finds out about the sitters. Addendum entered by Princess Herbert 06/11/22 12:44: 12:36 - renal case manager spoke with patients Kenyatta hunter, to see if she had heard anything from [facility], on if they would accept patient. recreation establishment manager was told that the guardian was told that patients information was still being reviewed. Addendum entered by Princess Herbert 06/11/22 12:43: 11:15 - renal case manager called [facility] and spoke with Malgorzata, was told that patients information was still being reviewed. recreation establishment manager spoke with [place] and was told that it was being reviewed by the director medical surgical and that they should have an answer within the hour if facility would be able to accept patient. Addendum entered by Princess Herbert 06/11/22 12:41: recreation establishment manager called patients Kenyatta hunter at 11:00 and asked if she had heard anything from [facility], and she stated that she was told that patients information was being reviewed. Addendum entered by Princess Herbert 06/11/22 12:40: recreation establishment manager called [facility] at 10:00 spoke with Malgorzata asking if facility would be able to accept patient. recreation establishment manager was told that it was being reviewed at this time and when she knew if they would accept that she would call renal case manager. Addendum entered by Princess Herbert 06/11/22 12:38: recreation establishment manager spoke with Malgorzata at [facility] at 9:30 while in the ER answered any questions that she had that renal case manager was able to answer. recreation establishment manager was told that the facility should have an answer within the hour if they could accept patient or not. Addendum entered by Princess Herbert 06/11/22 12:37: recreation establishment manager called dale Moncada, informed her that patient was COVID +, she stated that she would call [facility] and inform the facility that patient is COVID + and see when Malgorzata would be able to come to hospital and do level of care assessment. Original Note: recreation establishment manager was asked about patient having a guardian. recreation establishment manager called Kenyatta Moncada, Public [employer] Ticket Seller for [facility], was told that she is the guardian of patient. recreation establishment manager was told that the guardian was actively looking for placement for patient at both [facility] and [facility]. recreation establishment manager faxed patients information to both [facility] and [facility] for consideration for placement. recreation establishment manager spoke with Kenyatta, was told that [facility] is looking at accepting patient, waiting for all of patients paperwork to be looked at.
[2022-06-10 14:59] LABS: SARS-COV-2 Detected (NOT DETECT)
[2022-06-10 15:00] LABS: Adenovirus Not Detected (NOT DETECT); Chlamydia Pneumoniae Not Detected (NOT DETECT); Coronavirus 229E,HKU1,NL63,OC4 Not Detected (NOT DETECT); Human Metapneumovirus Not Detected (NOT DETECT); Human Rhinovirus/Enterovirus Not Detected (NOT DETECT); Influenza A Not Detected (NOT DETECT); Influenza A H1 Not Detected (NOT DETECT); Influenza A H1-2009 Not Detected (NOT DETECT); Influenza A H3 Not Detected (NOT DETECT); Influenza B Not Detected (NOT DETECT); Mycoplasma Pneumoniae Not Detected (NOT DETECT); Parainfluenza Virus Type 1 Not Detected (NOT DETECT); Parainfluenza Virus Type 2 Not Detected (NOT DETECT); Parainfluenza Virus Type 3 Not Detected (NOT DETECT); Parainfluenza Virus Type 4 Not Detected (NOT DETECT); Respiratory Syncytial Virus A Not Detected (NOT DETECT); Respiratory Syncytial Virus B Not Detected (NOT DETECT)
--- NOTE | 2022-06-10 15:01 | PC.PHAR ---
PT UNABLE TO VERIFY MEDICATIONS DUE TO AMS- PERSON THAT HELPS HER WITH MEDICATIONS IS ILL AND IN THE HOSPITAL- TALKED TO [employer] PRESS OPERATOR [employer] THAT IS ASSIGNED AND THEY ARE UNABLE TO HELP WELL- CALLED [facility] AND THEY HAVE NOT FILLED FOR THIS PT SINCE MARCH 2022. [facility] HAS A SCRIPT ON HOLD FOR GALANTAIME 8MG DAILY SCINCE FEBRUARY 2022 NOT FILLED OR PICKED UP. PT ALSO HAS B-12 INJECTION ON HOLD AT [facility] WELL FROM FEBRUARY 2022.
--- NOTE | 2022-06-10 15:37 | DCPLANNER ---
Spoke with public senior sales administrator, Kenyatta. She states that she just finished paying [facility] but they can't accept patient until tomorrow. She guesses that they will be able to pick patient up by 1000. She states that patient's brother absolutely refuses to take patient home. MAGY spoke with Anayeli at [facility] to confirm placement. She states that they will accept patient, but unsure of transport time. That will need to come from [facility]. When MAGY spoke with Malgorzata, she stated that she would be over tomorrow to do a level of care assessment. If they are able to accept patient based off of level of care, she states that transport should be able to pick her up by 1000.
[2022-06-10] MEDS: acetaminophen 500 mg Tablet PO (15:47)
--- NOTE | 2022-06-10 17:45 | PC.SOCIAL ---
Discharge Note: Updated Kenyatta Moncada, guardian that patient is able to be discharged from the hospital; she states that she has received conflicting information. She states that she was told that patient would be admitted for observation tonight. MAGY explained that this is not true, and that Dr. Villagran reported that patient could be discharged and picked up tonight. She states that she doesn't have anywhere for patient to go that patient's cousin that she lives with is admitted, and her brother that she stayed with for two nights refuses. CM called patient's brother and he said that she absolutely could not come back and he doesn't know why we don't understand that. He states that patient stayed two nights with them and they didn't get any sleep for two nights. He states that patient wet the bed and was up during the night. He states, shes nuts she has medical problem, dementia, and she can stay there for one night. CM asked if there was any other family. He states that patient has a sister that is in the nursing, and she has a daughter, but she's a piece of crap. CM updated Dr. Villagran. Explained that Malgorzata at [facility] stated that she would be here around 0800 in the morning. Updated Kenyatta as well.
--- NOTE | 2022-06-10 19:30 | PM.HP ---
Providers/Chief Complaint Primary Care Provider: Sarah Hernandez, OFFICE MACHINE SERVICE SUPERVISOR-C Chief Complaint: AMS History of Present Illness Lilliam Truong is a 87 year old female with history of Alzheimer's dementia, recently her brother relinquished guardianship, as per the ER physician in [facility] has resumed her guardianship, they wanted clearance before her admission to the snf. Patient is stating she is not sure why she was in the hospital otherwise stating that she has been having some discomfort in her throat which she would not call sore throat however she is clearing her throat pretty frequently, she is also bringing up some phlegm, she has not noticed any chest pain shortness of breath fever. No recent diarrhea, no signs of UTI. I did tell her about the Covid 19 positive diagnosis and she asked what is Covid 19 ? I have spoken with [facility], they told me that they are still accepting COVID-19 patients but they will quarantine her for at least 5 days, I did tell them that Lilliam Wharton is afebrile and not requiring oxygen, community engagement representative from [facility] will arrive around 9 AM and let us know about the time. Hospital service has been requested to admit until she is evaluated at 9 AM in the morning Review of Systems Const: Denies: chills Eyes: Denies: change in vision ENMT: Denies: throat pain Card: Denies: chest pain Resp: Denies: dyspnea GI: Denies: abdominal pain : Denies: flank pain Musc: Denies: neck pain Skin/Breast: Denies: rash Neuro: Denies: headache(s) Psych: Denies: anxiety Endo: Denies: polyuria Amaury/Lymph: Denies: easy bruising All/Imm: Denies: urticaria Medications/Allergies Home Medications Medication Instructions Recorded Confirmed Last Taken Type cyanocobalamin (vitamin B-12) 100 mcg (0.1 mL) SUBCUT DAILY 6 02/20/22 06/10/22 Unknown Rx 1,000 mcg/mL injection solution months #10 mL galantamine 8 mg 24 hr 8 mg PO QAM #90 caps 02/20/22 06/10/22 Unknown Rx capsule,extended release Allergies Allergy/AdvReac Type Severity Reaction Status Date / Time Iodinated Contrast Media Allergy ALGY-Rash Verified 06/10/22 15:01 PFSH Acute PFSH: Medical History Anxiety Aortic valve disease Aortic sclerosis Atelectasis Carotid stenosis, bilateral CKD (chronic kidney disease) Essential hypertension GERD (gastroesophageal reflux disease) Glucose intolerance Gout History of breast cancer Hyperlipidemia Hyperparathyroidism Palpitations Rectocele Vitamin B12 deficiency Surgical History S/P hysterectomy S/P knee replacement S/P lumpectomy, right breast S/P parathyroidectomy S/P tonsillectomy Family History Brother Hypertension Sister Cancer BREAST Father Myocardial infarction Mother , AGE 75 Histoplasmosis Social History Smoking and tobacco status: never smoked Second hand smoke exposure: No Smoking risk assessment/counseling performed?: No Alcohol intake: never Desire information about alcohol rehabilitation?: No Counseling given: No Desire information about substance/drug rehabilitation?: No Counseling given: No Adopted: No Caregiver/support person: Yes Lives independently: Yes Household members: family Housing: House Marital status: / Number of children: 1 service: No Current occupational status: retired History of recent travel: No Current gender identity: Female Vitals/I&O/Wt Last Vital Signs Temp 98.6 F 06/10/22 13:38 Pulse 104 H 06/10/22 15:29 Resp 21 H 06/10/22 15:29 BP 124/49 06/10/22 15:29 Pulse Ox 95 06/10/22 15:29 O2 Del Method 06/10/22 15:29 Physical Exam Narrative: Patient is pleasantly confused Oriented to herself No focal deficits noted during my interview Currently on room air Looks euvolemic Complaining of clearing of her throat but not COVID sore throat No active chest pain or shortness of breath S1, S2 No audible stridor or wheezing Lower extremity no edema Pleasant and cooperative No active signs of agitation Data : 06/10/22 11:19 06/10/22 11:19 A&P Assessment and plan (1) Altered mental status: Status: Acute (2) COVID: Status: Acute (3) Macrocytosis without anemia: Status: Acute (4) Alzheimer's dementia without behavioral disturbance: Status: Acute (5) Memory changes: Status: Acute (6) Dementia, vascular: Status: Chronic (7) CKD (chronic kidney disease): Status: Acute (8) Essential hypertension: Status: Chronic Plan COVID-19 Underlying Alzheimer's dementia No acute exacerbation Currently on room air She does not meet criteria to get Decadron or remdesivir She is already excepted at [facility] I did speak with them, community engagement representative from the snf will evaluate her around 9 AM 06/11/2022. They are still excepting COVID-19 patients with pulses to quarantine for 5 days. Patient is not showing any superimposed bacterial infection signs No fever or leukocytosis I am hopeful to be able to go to the snf Her son has relinquished guardianship, organ currently has resumed her guardianship now Full code DVT prophylaxis Lovenox Cardiac diet History of Alzheimer's dementia no acute exacerbation She is very cooperative and pleasant during my evaluation Attestations Medical Necessity Statement*: Anticipating less than 2 midnights in the hospital, she will be able to be transferred to the snf in the morning Time Spent in Patient Care: 35 Coding Level of Care Code Acute [employer] Analyst for [facility] Fwd Diagnoses Altered mental status R41.82 COVID U07.1 Macrocytosis without anemia D75.89 Alzheimer's dementia without behavioral disturbance G30.9; F02.80 Memory changes R41.3 Dementia, vascular F01.50 CKD (chronic kidney disease) N18.9 Essential hypertension I10
[2022-06-10 20:30] LABS: Procalcitonin 0.17 ng/mL (0-0.5)
--- NOTE | 2022-06-10 20:30 | PC.NURSE ---
Patient pulled out her iv before marlene to get remdesivir started, patient refused to allow RN to start new line.
--- NOTE | 2022-06-10 21:13 | PC.NURSE ---
Okay to leave IV out per verbal with Dr. Cordon
[2022-06-11 00:43] VITALS: BP 140/76; PULSE 77; RESP 16; O2SAT 93
[2022-06-11 03:10] VITALS: BP 112/50; PULSE 100; RESP 18; O2SAT 96
--- NOTE | 2022-06-11 05:52 | PC.NURSE ---
Pt resting quietly. Denies needs at this time
[2022-06-11 07:00] VITALS: PULSE 100; RESP 18; TEMP 37.1; O2SAT 96
--- NOTE | 2022-06-11 10:53 | PC.NURSE ---
Patient care assumed att, Patient appears to be sleeping lying on left side, no distress noted
--- NOTE | 2022-06-11 13:58 | P.PN_ITS ---
Subjective Subjective: Denies any complaints. Wonders why she is here. History and physical reviewed. Patient denies any pain. Medications: Reviewed: Yes Vitals/I&O/Wt Last Vital Signs Temp 98.8 F 06/11/22 07:00 Pulse 100 06/11/22 07:00 Resp 18 06/11/22 07:00 BP 112/50 06/11/22 03:10 Pulse Ox 96 06/11/22 07:00 O2 Del Method 06/11/22 07:00 Physical Exam Narrative: General exam no distress Neck is supple Cardiovascular regular rate and rhythm with a 2/6 systolic murmur Lungs clear no wheezing or crackles Abdomen is soft with positive bowel sounds. No obvious organomegaly exam is deferred Extremities no cyanosis clubbing or edema. Neuro no focal deficits. Data : 06/10/22 11:19 06/10/22 11:19 Micro: Microbiology 06/10/22 11:52 Urine Culture - Preliminary Urine,Clean Catch A&P Assessment and plan (1) COVID: She is asymptomatic currently. No treatment needed at this time. Saturating normally and able to intake food normally. Status: Acute (2) Alzheimer's dementia without behavioral disturbance: Patient with longstanding dementia. Family unable to care for her at home In transition to [facility] facility. Status: Acute (3) CKD (chronic kidney disease): Stable Status: Acute Plan Awaiting placement Attestations Medical Necessity Statement*: Not applicable, awaiting placement Coding Level of Care Code Acute [employer] Consultant for [employer] Diagnoses COVID U07.1 Alzheimer's dementia without behavioral disturbance G30.9; F02.80 CKD (chronic kidney disease) N18.9
[2022-06-11] MEDS: sennosides-docusate Tablet 1 TAB PO (15:49)
[2022-06-11 16:03] VITALS: BP 141/88; PULSE 83; RESP 19; TEMP 36.3; O2SAT 94
--- NOTE | 2022-06-11 16:58 | PC.NURSE ---
Patient assisted back to bed 3 times in last 30 minutes at her request after getting self out of bed
[2022-06-12 05:51] LABS: Basophils % 0.7 %; Hematocrit 39.8 % (37.0-47.0); Hemoglobin 12.7 g/dL (11.5-15.3); Lymphocytes # 0.8 10^3/uL (0.8-4.8); Mean Corpuscular HGB Conc 31.9 g/dL (30.0-36.0); Mean Corpuscular Hemoglobin 31.5 pg (28.0-34.0); Mean Corpuscular Volume 98.8 fl (81-99); Mean Platelet Volume 9.8 fL (7.4-10.4); Monocytes # 0.6 10^3/uL (0.2-0.9); Monocytes % 19.7 %; Neutrophils # 1.63 10^3/uL (1.8-7.7); Neutrophils % 54.3 %; Nucleated Red Blood Cells % 0 %; Platelet Count 175 10^3/cmm (130-400); Red Blood Count 4.03 10^6/uL (4.1-5.3); Red Cell Distribution Width 12.8 % (12.1-15.1)
[2022-06-12 06:10] LABS: Alanine Aminotransferase 25 U/L (0-33); Albumin Level 3.5 g/dL (3.5-5.2); Alkaline Phosphatase 46 U/L (35-105); Anion Gap 16.3 (5-19); Aspartate Amino Transferase 43 U/L (0-32); Blood Urea Nitrogen 36 mg/dL (8-23); Calcium 8.3 mg/dL (8.5-10.5); Carbon Dioxide 25 mmol/L (22-29); Chloride 100 mmol/L (98-107); Globulin 3.2 g/dL (1.3-4.6); Glucose 73 mg/dL (65-115); Magnesium 2.2 mg/dL (1.7-2.3); Osmolality Calculated 291 mOsm/kg (285-295); Potassium 4.3 mmol/L (3.5-5.1); Sodium 137 mmol/L (136-145); Total Bilirubin 0.4 mg/dL (0.15-1.2); Total Protein 6.7 g/dL (6.6-8.7)
[2022-06-12 08:23] VITALS: BP 111/60; PULSE 67; RESP 15; TEMP 36.4; O2SAT 96
--- NOTE | 2022-06-12 08:31 | PM.DCS ---
Discharge Providers Date of Admission: 06/11/22 19:18 Date of Discharge: June 12, 2022 Attending Provider at Admission: Bandar Olsen MD Attending Provider at Discharge: Juanito Mcconnell MD Primary Care Provider: CHETAN Michael Diagnoses at Discharge Discharge Diagnosis (1) COVID: Status: Acute (2) Alzheimer's dementia without behavioral disturbance: Status: Acute (3) CKD (chronic kidney disease): Status: Acute Reason for Visit Reason for Visit: AMS Hospital Course Hospital Course Lilliam is an 87-year-old with dementia who presented to the emergency department from my understanding because caregivers could not take care of her at home. She had a mild cough, and tested positive for COVID. She did not require any oxygen or have any other symptoms. She was initially placed an outpatient in a bed awaiting placement at the alf, but converted observation prior to discharge. No significant treatment occurred while at the hospital. Creatinine was checked, and stable consistent with her chronic kidney disease. Physical Exam Narrative: General exam is no distress Neck is supple no lymphadenopathy thyromegaly Cardiovascular regular rate and rhythm with 3/6 systolic murmur Lungs clear no wheezing or crackles Abdomen soft nontender positive bowel sounds Extremities no cyanosis clubbing or edema Discharge Data Studies Completed and Pending Completed Studies During Hospitalization Category Date Time Status CT head wo con* [id number] Stat Cat Scan 06/10/22 11:14 Completed XR chest 1V portable [id number] Stat Exams 06/10/22 11:14 Completed Pending at discharge Category Date Time Status Urine Culture Stat Lab 06/10/22 11:52 Results Radiology Impressions Chest X-Ray 06/10/22 11:14 IMPRESSION: No acute cardiopulmonary abnormality. Head CT 06/10/22 11:14 IMPRESSION: 1. No evidence of intracranial hemorrhage or mass effect. 2. Mild small vessel changes with moderate parenchymal volume loss 3. No acute intracranial findings. Laboratory Results WBC 3.0 10^3/uL (4.0-10.0) L 06/12/22 05:16 RBC 4.03 10^6/uL (4.1-5.3) L 06/12/22 05:16 Hgb 12.7 g/dL (11.5-15.3) 06/12/22 05:16 Hct 39.8 % (37.0-47.0) 06/12/22 05:16 MCV 98.8 fl (81-99) 06/12/22 05:16 MCH 31.5 pg (28.0-34.0) 06/12/22 05:16 MCHC 31.9 g/dL (30.0-36.0) 06/12/22 05:16 RDW 12.8 % (12.1-15.1) 06/12/22 05:16 Plt Count 175 10^3/cmm (130-400) 06/12/22 05:16 MPV 9.8 fL (7.4-10.4) 06/12/22 05:16 Neut % (Auto) 54.3 % 06/12/22 05:16 Lymph % (Auto) 25.0 % 06/12/22 05:16 [place] % (Auto) 19.7 % 06/12/22 05:16 Eos % (Auto) 0.0 % 06/12/22 05:16 Baso % (Auto) 0.7 % 06/12/22 05:16 Neut # (Auto) 1.63 10^3/uL (1.8-7.7) L 06/12/22 05:16 Lymph # (Auto) 0.8 10^3/uL (0.8-4.8) 06/12/22 05:16 [place] # (Auto) 0.6 10^3/uL (0.2-0.9) 06/12/22 05:16 Eos # (Auto) 0.0 10^3/uL (0.0-0.8) 06/12/22 05:16 Baso # (Auto) 0.0 10^3/uL (0.0-0.1) 06/12/22 05:16 Nucleated RBC % (auto) 0 % 06/12/22 05:16 Nucleated RBCs # 0.0 /100WBC 06/12/22 05:16 Sodium 137 mmol/L (136-145) 06/12/22 05:16 Potassium 4.3 mmol/L (3.5-5.1) 06/12/22 05:16 Chloride 100 mmol/L (98-107) 06/12/22 05:16 Carbon Dioxide 25 mmol/L (22-29) 06/12/22 05:16 Anion Gap 16.3 (5-19) 06/12/22 05:16 BUN 36 mg/dL (8-23) H 06/12/22 05:16 Creatinine 2.0 mg/dL (0.5-0.9) H 06/12/22 05:16 GFR Calculation Not Reportable 06/12/22 05:16 Glucose 73 mg/dL (65-115) 06/12/22 05:16 Calculated Osmolality 291 mOsm/kg (285-295) 06/12/22 05:16 Calcium 8.3 mg/dL (8.5-10.5) L 06/12/22 05:16 Magnesium 2.2 mg/dL (1.7-2.3) 06/12/22 05:16 Total Bilirubin 0.4 mg/dL (0.15-1.2) 06/12/22 05:16 AST 43 U/L (0-32) H 06/12/22 05:16 ALT 25 U/L (0-33) 06/12/22 05:16 Alkaline Phosphatase 46 U/L (35-105) 06/12/22 05:16 Troponin T Baseline 49 ng/L (0-10) H 06/10/22 11:19 Troponin T 120 Minute 44.00 ng/L (0-10) H 06/10/22 13:10 Delta Troponin T -5.00 ABS# (0-10) L 06/10/22 13:10 C-Reactive Protein 3.0 mg/L (0.0-4.9) 06/12/22 05:16 Total Protein 6.7 g/dL (6.6-8.7) 06/12/22 05:16 Albumin 3.5 g/dL (3.5-5.2) 06/12/22 05:16 Globulin 3.2 g/dL (1.3-4.6) 06/12/22 05:16 Lipase 58 U/L (13-60) 06/10/22 11:19 Procalcitonin 0.17 ng/mL (0-0.5) 06/10/22 13:10 TSH 0.85 uIU/mL (0.27-4.20) 06/10/22 11:19 Free T4 1.08 ng/dL (0.82-1.77) 06/10/22 11:19 Urine Color Yellow (Yellow) 06/10/22 11:52 Urine Appearance Hazy (CLEAR) A 06/10/22 11:52 Urine pH 5 (5-7) 06/10/22 11:52 Ur Specific [place] 1.020 (1.005-1.030) 06/10/22 11:52 Urine Protein Trace (Negative) 06/10/22 11:52 Urine Glucose (UA) Norm (Normal) 06/10/22 11:52 Urine Ketones 1+ (Negative) H 06/10/22 11:52 Urine Blood 2+ (Negative) H 06/10/22 11:52 Urine Nitrate Negative (Negative) 06/10/22 11:52 Urine Bilirubin Neg (Negative) 06/10/22 11:52 Urine Urobilinogen 1 mg/dL (Negative) H 06/10/22 11:52 Ur Leukocyte Esterase Negative (Negative) 06/10/22 11:52 Urine RBC 0-4 /hpf (0-2) H 06/10/22 11:52 Urine WBC 0-4 /hpf (0-5) H 06/10/22 11:52 Ur Squamous Epith Cells 0-4 /hpf (0-5) H 06/10/22 11:52 Amorphous Sediment Not Reportable 06/10/22 11:52 Urine Bacteria 2+ /hpf (NONE) H 06/10/22 11:52 Salicylates < 0.3 mg/dL (3-10) L 06/10/22 11:19 Acetaminophen < 5.0 ug/mL (10-30) L 06/10/22 11:19 Coronavirus 229E (PCR) Not detected (NOT DETECT) 06/10/22 12:25 SARS-CoV-2 (PCR) Detected (NOT DETECT) A 06/10/22 12:25 Vitals Last Vital Signs Temp 97.6 F 06/12/22 08:23 Pulse 67 06/12/22 08:23 Resp 15 06/12/22 08:23 BP 111/60 06/12/22 08:23 Pulse Ox 96 06/12/22 08:23 O2 Del Method 06/12/22 08:23 Discharge Plan Discharge Patient Disposition: Xfer SNF Condition: Stable Prescriptions: Continued galantamine 8 mg capsule,ext rel. pellets 24 hr 8 mg PO QAM Qty: 90 5RF Rx Instructions: administer with breakfast 340B Discontinued cyanocobalamin (vitamin B-12) 1,000 mcg/mL solution 100 mcg SUBCUT DAILY 180 Days Qty: 10 3RF Rx Instructions: 1000 mcg subcu daily for 3 days, then weekly for 4 weeks, then once a month Discharge Orders: Discharge Order (Routine); Ordered 06/12/22 Ordered By: Juanito Mcconnell Referrals: Sarah Hernandez, DRY ROASTER-C [Primary Care Provider] - 4-7 days Discharge Diet: Advance as tolerated Discharge Activity: Increase activity as tolerated Patient Instructions: Altered Mental Status (ED) Activity Restrictions/Additional Instructions: Come back if you have any new or concerning issues. Discharge Attestations Time Spent in Discharge Care*: less than 30 min Quality Metrics Clinical Quality Measures [ No reported AMI, CVA or VTE this stay] Coding Level of Care Code Acute [facility] note Diagnoses COVID U07.1 Alzheimer's dementia without behavioral disturbance G30.9; F02.80 CKD (chronic kidney disease) N18.9
[2022-06-12 08:53] VITALS: BP 111/60; PULSE 67; RESP 15; TEMP 36.4; O2SAT 96
--- NOTE | 2022-06-12 09:01 | PC.NURSE ---
Pt discharged to [facility]. Staff present for transportation. Assisted with dressing and gathered pt belongings. Pt transported via wheel chair with [facility] staff.
== END 2022-06-12 09:08 | disposition home or self-care (01) ==
LOC: ER 19:27 → MEDSURG 06-11 19:21
PROVIDERS: Internal Medicine; Admitting Provider Family Medicine; Emergency Provider Emergency Medicine; PCP Nurse Practitioner; Visit Provider Internal Medicine
DX: U07.1 COVID-19 (principal); G30.9 Alzheimer's disease, unspecified; F02.80 Dementia in other diseases classified elsewhere, unspecified severity, without behavioral disturbance, psychotic disturbance, mood disturbance, and anxiety; F01.50 Vascular dementia, unspecified severity, without behavioral disturbance, psychotic disturbance, mood disturbance, and anxiety; I12.9 Hypertensive chronic kidney disease with stage 1 through stage 4 chronic kidney disease, or unspecified chronic kidney disease; N18.9 Chronic kidney disease, unspecified; E78.5 Hyperlipidemia, unspecified; E21.3 Hyperparathyroidism, unspecified; D75.89 Other specified diseases of blood and blood-forming organs
CPT/HCPCS: 36415; 70450; 71045; 80053; 80307; 81001; 83690; 83735; 84145; 84439; 84443; 84484; 85025; 86140; 87086; 87635; 93005; 96372; 96374; 99285; G0378; J0360; J1644

== ENCOUNTER 2022-07-24 19:00 | Emergency (ER) | payer MEDICARE, OTHER, SELFPAY ==
[2022-07-24 19:04] VITALS: BMI 25.8
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
[2022-07-24 19:12] VITALS: BP 211/70; PULSE 77; RESP 16; TEMP 37.1; O2SAT 97
--- NOTE | 2022-07-24 19:25 | ECG_ITS ---
[facility] Test Date: 2022-07-24 Pat Name: Lilliam Truong Department: Room: Gender: Female Densitometer Reader: : 1935 Requested By: Akash Chang Order Number: [id number] Jesse MD: Isabela Nunes M.D. Measurements Intervals [place] Rate: 77 P: 90 MT: 212 QRS: -7 QRSD: 88 T: 90 QT: 373 QTc: 425 Interpretive Statements SINUS RHYTHM WITH FIRST DEGREE AV BLOCK MINIMAL VOLTAGE CRITERIA FOR LVH, CONSIDER NORMAL VARIANT [MEETS CRITERIA IN ONE OF: R(aVL), S(V1), R(V5), R(V5/V6)+S(V1)] NONSPECIFIC T-WAVE ABNORMALITY Compared to ECG 06/10/2022 13:14:50 First degree AV block now present Sinus arrhythmia no longer present T-wave abnormality still present Electronically Signed On 07-25-2022 16:47:51 CDT by Isabela Nunes M.D. [email or web address]
[2022-07-24 19:33] VITALS: PULSE 74; RESP 16; O2SAT 96
[2022-07-24 19:36] LABS: Basophils # 0.1 10^3/uL (0.0-0.1); Basophils % 0.9 %; Eosinophils # 0.1 10^3/uL (0.0-0.8); Eosinophils % 1.7 %; Hematocrit 34.6 % (37.0-47.0); Hemoglobin 10.7 g/dL (11.5-15.3); Lymphocytes % 15.8 %; Mean Corpuscular HGB Conc 30.9 g/dL (30.0-36.0); Mean Corpuscular Hemoglobin 31.9 pg (28.0-34.0); Mean Corpuscular Volume 103.3 fl (81-99); Mean Platelet Volume 9.8 fL (7.4-10.4); Monocytes # 0.6 10^3/uL (0.2-0.9); Neutrophils # 4.68 10^3/uL (1.8-7.7); Neutrophils % 72.3 %; Nucleated Red Blood Cells % 0 %; Platelet Count 223 10^3/cmm (130-400); Red Blood Count 3.35 10^6/uL (4.1-5.3); Red Cell Distribution Width 14.2 % (12.1-15.1); White Blood Count 6.5 10^3/uL (4.0-10.0)
[2022-07-24] MEDS: labetalol 5 mg/mL SDV 20mL 20 MG IVP (19:41)
[2022-07-24 19:45] VITALS: BP 127/48
[2022-07-24 20:05] LABS: SARS Covid-2 Antigen negative (Negative)
[2022-07-24 20:14] LABS: Alanine Aminotransferase 6 U/L (0-33); Albumin Level 3.3 g/dL (3.5-5.2); Alkaline Phosphatase 51 U/L (35-105); Anion Gap 13.7 (5-19); Aspartate Amino Transferase 14 U/L (0-32); Blood Urea Nitrogen 29 mg/dL (8-23); Calcium 8.8 mg/dL (8.5-10.5); Carbon Dioxide 26 mmol/L (22-29); Chloride 104 mmol/L (98-107); Globulin 3.4 g/dL (1.3-4.6); Glucose 110 mg/dL (65-115); Osmolality Calculated 294 mOsm/kg (285-295); Potassium 4.7 mmol/L (3.5-5.1); Sodium 139 mmol/L (136-145); Total Bilirubin 0.2 mg/dL (0.15-1.2); Total Protein 6.7 g/dL (6.6-8.7)
[2022-07-24 20:15] LABS: Thyroid Stimulating Hormone 2.03 uIU/mL (0.27-4.20)
[2022-07-24 20:36] LABS: Acetaminophen < 5.0 ug/mL (10-30); Alcohol Level < 10 mg/dL (0-10); Salicylate < 0.3 mg/dL (3-10)
[2022-07-24 21:18] VITALS: BP 108/74; PULSE 76; RESP 16; O2SAT 97
[2022-07-24 21:25] LABS: Add Urine Microscopic? NO; Charge for UA Resulting for Rev
[2022-07-24 21:31] LABS: Bilirubin Urine Neg (Negative); Blood Urine Neg (Negative); Glucose Urine UA Norm (Normal); Ketones Urine 1+ (Negative); Leukocyte Esterase Urine Negative (Negative); Nitrate Urine Negative (Negative); Protein Urine Neg (Negative); Specific Gravity, Urine 1.015 (1.005-1.030); Urine Appearance Clear (CLEAR); Urine Color Yellow (Yellow); Urobilinogen Urine Norm (Negative); pH Urine 5 (5-7)
[2022-07-24 21:36] LABS: Amphetamines Screen Urine Negative (Negative); Barbiturates Screen Urine Negative (Negative); Benzodiazepines Screen Urine Negative (Negative); Cocaine Screen Urine Negative (Negative); Opiate Screen Urine Negative (Negative); PCP Screen Urine Negative (Negative); THC Screen Urine Negative (Negative)
[2022-07-24 22:39] VITALS: BP 190/77; PULSE 68; RESP 16; O2SAT 97
--- NOTE | 2022-07-24 22:56 | XRR_ITS ---
PROCEDURE INFORMATION: Exam: XR Chest Exam date and time: 07/24/2022 11:38 PM Age: 87 years old Clinical indication: Other: Behavioral health; Additional info: Psych clearance TECHNIQUE: Imaging protocol: Radiologic exam of the chest. Views: 1 view. COMPARISON: CR XR chest 1V portable [id number] 06/10/2022 11:22 AM FINDINGS: Lungs: There is no evidence of focal pulmonary consolidation. Pleural spaces: No pleural effusion or pneumothorax. Heart/Mediastinum: The heart is mildly enlarged. Bones/joints: There is redemonstration of multiple old left rib fractures. There is moderate dextroconvex thoracic rotoscoliosis. XR/XR chest 1V portable [id number] IMPRESSION: 1. Stable mild cardiomegaly. 2. No acute findings.
[2022-07-25 04:36] VITALS: PULSE 76; RESP 16; O2SAT 96
== END 2022-07-25 04:38 ==
PROVIDERS: Emergency Medicine; Emergency Provider Emergency Medicine; PCP Family Medicine
DX: F23 Brief psychotic disorder (principal); G30.9 Alzheimer's disease, unspecified; F02.811 Dementia in other diseases classified elsewhere, unspecified severity, with agitation
CPT/HCPCS: 71045; 80053; 80306; 80307; 81003; 84443; 85025; 87426; 93005; 96374; 99284; J3490

== ENCOUNTER 2022-10-26 12:20 | Emergency (ER) | payer MEDICARE, OTHER, SELFPAY ==
--- NOTE | 2022-10-26 12:32 | ED_ITS ---
HPI - Syncope General: Chief Complaint: Syncope Stated Complaint: SYNCOPE Time Seen by Provider: 10/26/22 12:32 Limitations: altered mental status History of Present Illness: Ms. Wharton is an 87-year-old lady with history of carotid stenosis, hypertension, hyperlipidemia, vascular dementia, CKD presented to the emergency department due to possible syncopal episode. Per EMS report the patient finished eating and then stood up and fainted. Patient herself does not recall this event. She currently denies any complaints or recent changes in health however reliability of history is limited secondary to dementia. Review of Systems General: Reports: ROS unobtainable due to mental status PFSH ED PFSH: Medical History Anxiety Aortic valve disease Aortic sclerosis Atelectasis Carotid stenosis, bilateral CKD (chronic kidney disease) Essential hypertension GERD (gastroesophageal reflux disease) Glucose intolerance Gout History of breast cancer Hyperlipidemia Hyperparathyroidism Palpitations Rectocele Vitamin B12 deficiency Surgical History S/P hysterectomy S/P knee replacement S/P lumpectomy, right breast S/P parathyroidectomy S/P tonsillectomy Family History Brother Hypertension Sister Cancer BREAST Father Myocardial infarction Mother , AGE 75 Histoplasmosis Social History Smoking and tobacco status: never smoked Second hand smoke exposure: No Smoking risk assessment/counseling performed?: No Alcohol intake: never Desire information about alcohol rehabilitation?: No Counseling given: No Desire information about substance/drug rehabilitation?: No Counseling given: No Adopted: No Caregiver/support person: Yes Lives independently: Yes Household members: family Housing: House Marital status: / Number of children: 1 service: No Current occupational status: retired History of recent travel: No Current gender identity: Female Physical Exam Const: COMMON NORMALS: alert GENERAL APPEARANCE: cooperative and well developed HENMT: COMMON NORMALS: normocephalic and atraumatic HEAD & SCALP: normocephalic and atraumatic OTHER: No hannah signs or raccoon eyes. No otorrhea or rhinorrhea. Jaw alignment normal. Dentition baseline. No obvious bony step-offs. No septal hematoma. No evidence of ocular entrapment. Eye: COMMON NORMALS: conjunctivae normal CONJUNCTIVA: Yes conjunctivae n ormal SCLERA: sclerae normal Neck/C-Spine: COMMON NORMALS: supple GENERAL: Yes trachea midline Resp: COMMON NORMALS: clear to auscultation bilaterally EFFORT & INSPECTION: Yes able to speak in complete sentences AUSCULTATION: clear to auscultation bilaterally Cardio: COMMON NORMALS: regular rate and regular rhythm RATE: regular rate RHYTHM: regular rhythm GI: COMMON NORMALS: Soft to palpation PALPATION: Yes Soft to palpation and No Tenderness to palpation present (GI) Back/Pelvis: COMMON NORMALS: no thoracic nor lumbar tenderness Extremity: GENERAL: Yes normal exam except as noted and No edema Neuro: COMMON NORMALS: CN's II-XII intact bilaterally, moves all extremities, no focal motor deficits and no sensory deficits noted SENSORIUM/ORIENTATION: Yes alert and No Orientation impaired Psych: MEMORY/COGNITION: Yes memory grossly impaired Course Vital Signs: Vital signs: Vital Signs Temperature 97.7 F 10/26/22 12:36 Pulse Rate 80 10/26/22 17:46 Respiratory Rate 16 10/26/22 17:46 Blood Pressure 135/59 10/26/22 12:36 Pulse Oximetry 97 10/26/22 17:46 Oxygen Delivery Me thod 10/26/22 12:40 MDM - Syncope Medical Decision Making 87-year-old lady with history of dementia presenting due to syncopal episode upon standing. Patient herself is apparently at baseline without focal neurologic deficits at this time. EKG notable for sinus rhythm, nonspecific ST segment abnormalities, normal axis and intervals, no STEMI. Similar on repeat. Labs notable for no leukocytosis, normal hemoglobin and platelet count. Metabolic panel with CKD without significant electrolyte derangement. Initial troponin is elevated however negative range 2-hour delta troponin is present. Overall similar to prior for hematologic and metabolic panel Chest x-ray with no lobar consolidation or pneumothorax. CT head with no evidence of acute intracranial hemorrhage or mass. Also similar to prior. Patient treated with IV fluids and feels improved. Most likely etiology of patient symptoms of syncope possibly related to orthostatic hypotension. The results of ED evaluation were discussed with the patient including prescriptions and/or symptomatic cares (if applicable) including appropriate and responsible use, followup plan, and return precautions. The patient verbalized understanding and felt safe for discharge. Medical Records I reviewed the patient's medical records. Lab Data I reviewed the patient's lab results. 10/26/22 12:29 10/26/22 13:04 Radiology Impressions Chest X-Ray 10/26/22 12:37 IMPRESSION: No evidence for acute cardiopulmonary disease. Head CT 10/26/22 12:37 IMPRESSION: There are senescent changes of the brain as described above. No evidence for large acute ischemic infarction or acute intracranial injury. Laboratory Results WBC 5.4 10^3/uL (4.0-10.0) 10/26/22 12:29 RBC 3.89 10^6/uL (4.1-5.3) L 10/26/22 12: Hgb 12.3 g/dL (11.5-15.3) 10/26/22 12: Hct 39.5 % (37.0-47.0) 10/26/22 12:29 MCV 101.5 fl (81-99) H 10/26/22 12: MCH 31.6 pg (28.0-34.0) 10/26/22 12:29 MCHC 31.1 g/dL (30.0-36.0) 10/26/22 12: RDW 12.7 % (12.1-15.1) 10/26/22 12: Plt Count 217 10^3/cmm (130-400) 10/26/22 12:29 MPV 10.8 fL (7.4-10.4) H 10/26/22 12:29 Neut % (Auto) 56.1 % 10/26/22 12: Lymph % (Auto) 32.4 % 10/26/22 12:29 [place] % (Auto) 8.5 % 10/26/22 12:29 Eos % (Auto) 1.5 % 10/26/22 12:29 Baso % (Auto) 1.1 % 10/26/22 12:29 Neut # (Auto) 3.05 10^3/uL (1.8-7.7) 10/26/22 12: Lymph # (Auto) 1.8 10^3/uL (0.8-4.8) 10/26/22 12:29 [place] # (Auto) 0.5 10^3/uL (0.2-0.9) 10/26/22 12:29 Eos # (Auto) 0.1 10^3/uL (0.0-0.8) 10/26/22 12:29 Baso # (Auto) 0.1 10^3/uL (0.0-0.1) 10/26/22 12:29 Nucleated RBC % (auto) 0 % 10/26/22 12:29 Nucleated RBCs # 0.0 /100WBC 10/26/22 12:29 Sodium 142 mmol/L (136-145) 10/26/22 13:04 Potassium 4.5 mmol/L (3.5-5.1) 10/26/22 13:04 Chloride 106 mmol/L (98-107) 10/26/22 13:04 Carbon Dioxide 26 mmol/L (22-29) 10/26/22 13:04 Anion Gap 14.5 (5-19) 10/26/22 13:04 BUN 22 mg/dL (8-23) 10/26/22 13:04 Creatinine 1.6 mg/dL (0.5-0.9) H 10/26/22 13:04 GFR Calculation Not Reportable 10/26/22 13:04 Glucose 126 mg/dL (65-115) H 10/26/22 13:04 POC Glucose 148 mg/dL (70-110) H 10/26/22 12:34 Calculated Osmolality 299 mOsm/kg (285-295) H 10/26/22 13:04 Calcium 8.2 mg/dL (8.5-10.5) L 10/26/22 13:04 Magnesium 1.9 mg/dL (1.7-2.3) 10/26/22 13:04 Total Bilirubin 0.3 mg/dL (0.15-1.2) 10/26/22 13:04 AST 14 U/L (0-32) 10/26/22 13:04 ALT < 5 U/L (0-33) 10/26/22 13:04 Alkaline Phosphatase 44 U/L (35-105) 10/26/22 13:04 Troponin T Baseline 124 ng/L (0-10) H* 10/26/22 13:04 Troponin T 120 Minute 123.7 ng/L (0-10) H 10/26/22 14:44 Delta Troponin T -0.3 ABS# (0-10) L 10/26/22 14:44 Total Protein 6.1 g/dL (6.6-8.7) L 10/26/22 13:04 Albumin 3.5 g/dL (3.5-5.2) 10/26/22 13:04 Globulin 2.6 g/dL (1.3-4.6) 10/26/22 13:04 TSH 3.62 uIU/mL (0.27-4.20) 10/26/22 13:04 Discharge Plan Discharge Patient Disposition: [facility] Clinical Impression: Syncope, CKD (chronic kidney disease) Condition: Stable Discharge Orders: Discharge ED (Routine); Ordered 10/26/22 Ordered By: Akash Chang Referrals: Cassius Herrera, [Primary Care Provider] - Discharge Diet: Usual diet Discharge Activity: Resume usual activity Patient Instructions: Syncope in Older Adults (ED) Activity Restrictions/Additional Instructions: Thank you for visiting the emergency department. You were seen and evaluated for syncope. The exact cause of your episode is unclear. I will refer you for further outpatient testing. Please also follow-up with your primary care provider. Return to the emergency department for recurrent symptoms, any new neurologic symptoms, or anything else that you are concerned about a feel needs emergency department evaluation. 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
[2022-10-26 12:34] VITALS: BP 138/72; PULSE 72; RESP 18; TEMP 36.6; O2SAT 94; BMI 26.6
[2022-10-26 12:36] VITALS: BP 135/59; PULSE 75; RESP 16; TEMP 36.5; O2SAT 95
[2022-10-26 12:37] LABS: Glucose Point of Care 148 mg/dL (70-110)
--- NOTE | 2022-10-26 12:37 | CTR_ITS ---
PROCEDURE INFORMATION: Exam: CT Head Without Contrast Exam date and time: 10/26/2022 1:08 PM Age: 87 years old Clinical indication: Syncope and collapse TECHNIQUE: Imaging protocol: Computed tomography of the head without contrast. Radiation optimization: All CT scans at this facility use at least one of these dose optimization techniques: automated exposure control; mA and/or kV adjustment per patient size (includes targeted exams where dose is matched to clinical indication); or iterative reconstruction. COMPARISON: CT head wo con* [id number] 06/10/2022 11:26 AM RADIATION DOSE METRICS: Total DLP (mGy-cm): 1045.78 FINDINGS: Brain: There is diffuse cerebral atrophy present, consistent with this patient's age. Periventricular and subcortical white matter low densities are present which at this age likely represent microvascular ischemic change. No evidence for large acute ischemic infarction. Cerebral ventricles: No ventriculomegaly. Paranasal sinuses: Visualized sinuses are unremarkable. No fluid levels. Mastoid air cells: Visualized mastoid air cells are well aerated. Bones/joints: Unremarkable. No acute fracture. Soft tissues: Unremarkable. Vasculature: Calcified plaque is present within the carotid siphons. CT/CT head wo con* [id number] IMPRESSION: There are senescent changes of the brain as described above. No evidence for large acute ischemic infarction or acute intracranial injury.
--- NOTE | 2022-10-26 12:37 | ECG_ITS ---
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 Measurements Intervals Veteran Rate: 69 P: 58 IA: 196 QRS: 40 QRSD: 91 T: 92 QT: 403 QTc: 433 Interpretive Statements SINUS RHYTHM NONSPECIFIC ST & T-WAVE ABNORMALITY Compared to ECG 07/24/2022 19:25:48 First degree AV block no longer present T-wave abnormality still present Electronically Signed On 10-28-2022 7:45:58 SCALLOP CUTTER by Adalberto Rogers M.D. [id number]
--- NOTE | 2022-10-26 12:37 | XRR_ITS ---
PROCEDURE INFORMATION: Exam: XR Chest Exam date and time: 10/26/2022 12:49 PM Age: 87 years old Clinical indication: Other: Syncope TECHNIQUE: Imaging protocol: Radiologic exam of the chest. Views: 1 view. COMPARISON: CR (CHEST, ) 07/24/2022 11:38 PM FINDINGS: Tubes, catheters and devices: Surgical clips overlie the superior mediastinum and lower neck similar to the prior study. Lungs: Unremarkable. No consolidation. Pleural spaces: Right costophrenic angle is obscured and a small pleural effusion cannot be excluded. Heart/Mediastinum: The right heart border is obscured by the thoracic spine making heart size difficult to evaluate. Vasculature: There is calcified plaque in the aortic arch. Diaphragm: Eventration of the right hemidiaphragm, similar to the prior study. Bones/joints: Rightward lateral curvature of the thoracic spine. Soft tissues: There has been no significant interval change in the appearance of the chest since the prior radiographs. XR/XR chest 1V portable [id number] IMPRESSION: No evidence for acute cardiopulmonary disease.
[2022-10-26 12:40] VITALS: PULSE 80; RESP 16; O2SAT 97
[2022-10-26 12:50] LABS: Basophils # 0.1 10^3/uL (0.0-0.1); Basophils % 1.1 %; Eosinophils # 0.1 10^3/uL (0.0-0.8); Eosinophils % 1.5 %; Hematocrit 39.5 % (37.0-47.0); Hemoglobin 12.3 g/dL (11.5-15.3); Lymphocytes # 1.8 10^3/uL (0.8-4.8); Lymphocytes % 32.4 %; Mean Corpuscular HGB Conc 31.1 g/dL (30.0-36.0); Mean Corpuscular Hemoglobin 31.6 pg (28.0-34.0); Mean Corpuscular Volume 101.5 fl (81-99); Mean Platelet Volume 10.8 fL (7.4-10.4); Monocytes # 0.5 10^3/uL (0.2-0.9); Monocytes % 8.5 %; Neutrophils # 3.05 10^3/uL (1.8-7.7); Neutrophils % 56.1 %; Nucleated Red Blood Cells % 0 %; Platelet Count 217 10^3/cmm (130-400); Red Blood Count 3.89 10^6/uL (4.1-5.3); Red Cell Distribution Width 12.7 % (12.1-15.1); White Blood Count 5.4 10^3/uL (4.0-10.0)
[2022-10-26] MEDS: sodium chloride 0.9% 1,000 ML 999 ML IV (12:59)
[2022-10-26 13:56] LABS: Alanine Aminotransferase < 5 U/L (0-33); Albumin Level 3.5 g/dL (3.5-5.2); Alkaline Phosphatase 44 U/L (35-105); Anion Gap 14.5 (5-19); Aspartate Amino Transferase 14 U/L (0-32); Blood Urea Nitrogen 22 mg/dL (8-23); Calcium 8.2 mg/dL (8.5-10.5); Carbon Dioxide 26 mmol/L (22-29); Chloride 106 mmol/L (98-107); Globulin 2.6 g/dL (1.3-4.6); Glucose 126 mg/dL (65-115); Magnesium 1.9 mg/dL (1.7-2.3); Osmolality Calculated 299 mOsm/kg (285-295); Potassium 4.5 mmol/L (3.5-5.1); Sodium 142 mmol/L (136-145); Thyroid Stimulating Hormone 3.62 uIU/mL (0.27-4.20); Total Bilirubin 0.3 mg/dL (0.15-1.2); Total Protein 6.1 g/dL (6.6-8.7)
[2022-10-26 14:04] LABS: Troponin(5th) Baseline 124 ng/L (0-10)
--- NOTE | 2022-10-26 14:41 | ECG_ITS ---
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 Measurements Intervals [place] Rate: 66 P: 92 IN: 210 QRS: -25 QRSD: 87 T: 110 QT: 398 QTc: 419 Interpretive Statements SINUS RHYTHM WITH FIRST DEGREE AV BLOCK SEPTAL MYOCARDIAL INFARCTION , PROBABLY OLD [40+ ms Q WAVE IN V1/V2] MODERATE T-WAVE ABNORMALITY, CONSIDER LATERAL ISCHEMIA [-0.1+ mV T-WAVE IN I/aVL/V5/V6] Compared to ECG 10/26/2022 12:44:58 First degree AV block now present Myocardial infarct finding now present Possible ischemia now present T-wave abnormality still present Electronically Signed On 10-28-2022 7:51:03 MILIEU MANAGER by Renay Parnell M.D. [id number]
[2022-10-26 15:45] LABS: Troponin 5 2HR 123.7 ng/L (0-10); Troponin 5 2HR Delta -0.3 ABS# (0-10)
[2022-10-26 17:46] VITALS: PULSE 80; RESP 16; O2SAT 97
--- NOTE | 2022-10-27 15:47 | DCPLANNER ---
Addendum entered by Princess Herbert 12/17/22 15:52: Patient had an appointment scheduled for a US and an echo - patient did not attend appointment Original Note: manager harbor had message to schedule an outpatient carotid artery US and an echocardiogram. manager harbor faxed signed order to centralized scheduling, who will call patient with appointment information. manager harbor also sent notification to patients primary care physician, Dr. Herrera, that tests were ordered from the ER.
== END 2022-10-26 17:52 ==
PROVIDERS: Emergency Provider Emergency Medicine; PCP Family Medicine
DX: R55 Syncope and collapse (principal); I12.9 Hypertensive chronic kidney disease with stage 1 through stage 4 chronic kidney disease, or unspecified chronic kidney disease; N18.9 Chronic kidney disease, unspecified; Z85.3 Personal history of malignant neoplasm of breast; E78.5 Hyperlipidemia, unspecified; F01.50 Vascular dementia, unspecified severity, without behavioral disturbance, psychotic disturbance, mood disturbance, and anxiety
CPT/HCPCS: 36416; 70450; 71045; 80053; 82962; 83735; 84443; 84484; 85025; 93005; 99285; J7030

== ENCOUNTER 2023-11-19 17:03 | Outpatient (CLI) | payer MEDICARE, OTHER, SELFPAY ==
[2023-11-19 17:09] LABS: Add Urine Microscopic? NO; Charge for UA Resulting for Rev
[2023-11-19 17:18] LABS: Bilirubin Urine Neg (Negative); Blood Urine Neg (Negative); Glucose Urine UA Norm (Normal); Ketones Urine Negative (Negative); Leukocyte Esterase Urine Negative (Negative); Nitrate Urine Negative (Negative); Protein Urine Neg (Negative); Urine Appearance Clear (CLEAR); Urine Color Dark Yellow (Yellow); Urobilinogen Urine Norm (Negative); pH Urine 5 (5-7)
== END 2023-11-19 17:04 | disposition home or self-care (01) ==
PROVIDERS: PCP Family Medicine; Visit Provider Family Medicine
DX: N39.0 Urinary tract infection, site not specified (principal)
CPT/HCPCS: 81003; 87086

== ENCOUNTER 2024-05-13 14:49 | Outpatient (CLI) | payer MEDICARE, OTHER, SELFPAY ==
[2024-05-13 15:41] LABS: Estmated Average Glucose 82; Hemoglobin A1C 4.5 % (4.0-6.0)
[2024-05-13 15:47] LABS: Alanine Aminotransferase < 5 U/L (0-33); Alkaline Phosphatase 48 U/L (35-105); Anion Gap 15.8 (5-19); Aspartate Amino Transferase 14 U/L (0-32); Blood Urea Nitrogen 25 mg/dL (8-23); Calcium 8.5 mg/dL (8.5-10.5); Carbon Dioxide 24 mmol/L (22-29); Chloride 108 mmol/L (98-107); Globulin 3.2 g/dL (1.3-4.6); Glucose 114 mg/dL (65-115); NT Pro B Type Natriuretic Pept 3255 pg/mL (0-450); Osmolality Calculated 303 mOsm/kg (285-295); Potassium 3.8 mmol/L (3.5-5.1); Sodium 144 mmol/L (136-145); Total Bilirubin 0.2 mg/dL (0.15-1.2); Total Protein 7.2 g/dL (6.6-8.7)
[2024-05-13 16:03] LABS: Erythrocyte Sedimentation Rate 24 mm/hr (0-15)
[2024-05-13 16:06] LABS: Basophils % 0.6 %; Eosinophils # 0.1 10^3/uL (0.0-0.8); Eosinophils % 1.2 %; Hematocrit 37.5 % (36-47); Lymphocytes # 1.1 10^3/uL (0.8-4.8); Mean Corpuscular HGB Conc 30.7 g/dL (30-55); Mean Corpuscular Hemoglobin 32.1 pg (27-33); Mean Corpuscular Volume 104.7 fl (85-98); Monocytes # 0.5 10^3/uL (0.2-0.9); Monocytes % 9.1 %; Neutrophils % 67.9 %; Nucleated Red Blood Cells % 0 %; Platelet Count 192 10^3/cmm (157-399); Red Blood Count 3.58 10^6/uL (3.85-5.65); Red Cell Distribution Width 13.7 % (12.1-15.1); White Blood Count 5.15 10^3/uL (3.29-11.43)
== END 2024-05-13 14:50 | disposition home or self-care (01) ==
PROVIDERS: PCP Family Medicine; Visit Provider Family Medicine
DX: E78.5 Hyperlipidemia, unspecified (principal); R73.09 Other abnormal glucose; I10 Essential (primary) hypertension
CPT/HCPCS: 80053; 83036; 83880; 85025; 85651; 86140

== ENCOUNTER 2025-04-04 10:23 | Emergency (ER) | payer MEDICARE, OTHER, SELFPAY ==
[2025-04-04 10:29] VITALS: BP 141/75; PULSE 108; RESP 14; TEMP 36.8; O2SAT 98; BMI 26.6
--- OUTSIDE RECORDS SUMMARY | 2025-04-04 10:32 | XMS_ITS | Patient Health Record ---
Author Organization [facility] [employer] [facility] Address [address] [place] [address] Care Team Providers Care Switch Foreman Name Role Phone MARSHA ALANIZ Primary Care Provider [phone] Reason For Referral No Information Plan Of Treatment No Information Insurance Providers Payer Name Payer Address Payer Phone Subscriber Number Group Number Insured Name Patient Relationship to Insured Coverage Start Date Coverage End Date MEDICARE [address] [place] [address] [id number] Lilliam Truong Self - patient is the insured [employer] [facility] [address] [address] [place] [phone] [id number] Lilliam Truong Self - patient is the insured
--- OUTSIDE RECORDS SUMMARY | 2025-04-04 10:32 | XMS_ITS | Clinical Summary ---
Author Organization [facility] Address [address] [place] [address] Care Team Providers Care Event Decorator And Designer Name Role Phone Chadwick Rodriguez MD Unavailable [phone] Allergies Active Allergy Reactions Criticality Noted Date Comments Iodinated Contrast Media Hives 08/19/2016 Medications metoprolol tartrate (LOPRESSOR) 25 MG tablet Take 25 mg by mouth 2 (two) times a day. 06/24/2016 Active SENNOSIDES (SENOKOT ORAL) Take 2 tablets by mouth daily. Active multivitamin (ADULT) liquid Take 5 mL by mouth daily. Active calcium carbonate-vitam in D2 500 mg(1,250mg) -200 unit tablet Take 1 tablet by mouth daily. Active Social History Tobacco Use Types Packs/Day Years Used Date Smoking Tobacco: Never Smokeless Tobacco: Never Alcohol Use Standard Drinks/Week Comments No 0 (1 standard drink = 0.6 oz pur e alcohol) Health Literacy Answer Date Recorded Health Literacy 1 07/10/2021 Comments No Sex and Gender Information Value Date Recorded Sex Assigned at Not on file Legal Sex Female 3:52 PM CDT Gender Identity Not on file Sexual Orientation Not on file Last Filed Vital Signs Vital Sign Reading Time Taken Comments Blood Pressure 176/60 09/16/2016 1:58 PM MUSIC THEORY PROFESSOR Pulse 85 09/16/2016 1:58 PM MUSIC THEORY PROFESSOR Temperature 36.5 C (97.7 F) 09/16/2016 1:58 PM MUSIC THEORY PROFESSOR Respiratory Rate 20 09/16/2016 1:58 PM MUSIC THEORY PROFESSOR Oxygen Saturation - - Inhaled Oxygen Concentration - - Weight 95.3 kg (210 lb) 09/16/2016 1:58 PM MUSIC THEORY PROFESSOR Height 165.1 cm (5' 5 ) 09/16/2016 1:58 PM MUSIC THEORY PROFESSOR Body Mass Index 34.95 09/16/2016 1:58 PM MUSIC THEORY PROFESSOR Plan of Treatment Health Maintenance Due Date Last Done Comments Annual Wellness Exam 1935 Depression Screening 1955 TDAP/DTaP/TD Vaccines (1 - Tdap) 01/26/1956 Pneumococcal Vaccine 50+ (1 of 1 - PCV) 1987 Zoster Vaccine (1 of 2) 1987 DXA Scan 2002 Respiratory Syncytial Virus (RSV) Immunization - pts and pts aged 60 yrs+ (1 - 1-dose 75+ series) 01/26/2012 COVID-19 Vaccine ( - 2023-2 5 season) 2024 Influenza Series (Season Ended) 2025 Hepatitis B Vaccine Aged Out No longe r eligible based on patient's age to complete this topic Meningococcal B Vaccine Aged Out No l onger eligible based on patient's age to complete this topic Insurance RR [address] [place] [address] MEDICARE PART A & B [employer] [place] [id number] Care Teams Event Decorator And Designer Relationship Specialty Start Date End Date Chadwick Rodriguez MD [address] [place] [address] Referring Provider Orthopedic Surgery 08/18/16
--- OUTSIDE RECORDS SUMMARY | 2025-04-04 10:32 | XMS_ITS | Patient Health Record ---
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 Problem Anxiety (12957367) Anxiety (F41.9) Active confirmed Problem Psychosis (29032252) Psychosis (F29) Active confirmed Problem Shortness of breath (642385292) Shortness of breath (R06.02) Active confirmed [id number] Problem Abnormal results of cardiovascular function studies (601803759) Abnormal result of other cardiovascular function study (R94.39) Active confirmed [id number] m ed Description:Card iovascular stress test abnormal Problem Preoperative cardiovascular examination (986957313) Encounter for preprocedural cardiovascular examination (Z01.810) Active confirmed [id number]- Problem Supraventricular tachycardia (0172597) Supraventricula r tachycardia (I47.1) Active confirmed [id number] m ed Description:Paro xysmal supraventricular tachycardia Problem Essential hypertension (71317711) Essential primary hypertension (I10) Active confirmed [id number] m ed Description:Esse ntial hypertension Plan Of Treatment No Information Insurance Providers Payer Name Payer Address Payer Phone Subscriber Number Group Number Insured Name Patient Relationship to Insured Coverage Start Date Coverage End Date [place] [address] [place] [id number] ANN MARIE ATWOOD Self - patient is the insured 2 [facility] Insurance [address] [address] [place] [phone] [id number] ANN MARIE ATWOOD Self - patient is the insured 2
--- OUTSIDE RECORDS SUMMARY | 2025-04-04 10:32 | XMS_ITS | Patient Health Record ---
Author Organization [facility] Address [address] [place], [place] [address] Care Team Providers Care Gang Supervisor Name Role Phone Sarah Hernandez APN Primary Care Provider Susy Quiroz MD, Presley Unavailable [phone] Jerry MIRELES, Vinod Unavailable Unavailable Allergies Allergen (clinical drug ingredient) Drug/Non Drug Allergy documented on EMR Reaction Allergy Type Onset Date Status None or not verifiab le (as is Current Medications) (uncoded) Unknown Allergy Active Reason For Referral No Information Medications Medication SIG (Take, Route, Frequency, Duration) Notes Start Date End Date Status Co-Q10 200 mg 200 mg orally once a day for 30 day(s) Active Calcium 600+D 600 mg-200 units 1 tab orally QD for 30 day(s) Active lisinopril 20 mg 1 tab orally once a day for 30 day(s) Active Simvastatin 20 mg 1 tab QHS Active dilTIAZem 180 mg/24 hours 1 cap orally o nce a day for 30 day(s) Active Plan Of Treatment No Information Insurance Providers Payer Name Payer Address Payer Phone Subscriber Number Group Number Insured Name Patient Relationship to Insured Coverage Start Date Coverage End Date WPS Medicare Part B Claims Department [address] [address] [place] [address] [id number] Lilliam Truong Self - patient is the insured [employer] [employer] [address] [address] [place] [address] [phone] [id number] Lilliam Truong Self - patient is the insured Medical (General) History Medical History History ICD Code None or not verifiable Surgical History Surgery Date(Month/Year) 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
--- NOTE | 2025-04-04 10:35 | W.ED.EXTPRO ---
HPI - Extremity Problem General: Chief complaint: Extremity Problem,Nontraumatic Stated complaint: RT Hip/Leg pain Time Seen by Provider: 04/04/25 10:25 Source: patient, EMS and other (jail report) Mode of arrival: EMS Limitations: altered mental status (chronic dementia) History of Present Illness: Patient is an 89-year-old female [facility] of leg pain . skilled nursing states patient has been complaining of bilateral leg pain for several days/weeks. No known injury or trauma. She is wheelchair-bound and does not ambulate. Family reportedly wanted her seen and evaluated. Patient chronically has significant dementia. She is alert only to her name. MD Complaint: extremity pain Onset (ago): week(s) Pain Consistency: constant Location: left, right and lower extremity Associated symptoms: Reports fever(s) Related Data Home Medications ?Medication ?Instructions ?Recorded ?Confirmed bisacodyl 10 mg rectal suppository 10 mg ND DAILY PRN Constipation 09/17/22 04/04/25 loperamide 2 mg capsule See Rx Instructions .Route 09/17/22 04/04/25 (Anti-Diarrheal (loperamide)) .COMPLEX PRN Constipation olanzapine 5 mg tablet 5 mg PO BID 09/17/22 04/04/25 acetaminophen 500 mg tablet 500 mg PO Q6H PRN Pain 04/04/25 04/04/25 aluminum-mag hydroxide-simethicone 30 ml PO Q4H PRN upset stomach or 04/04/25 04/04/25 200 mg-200 mg-20 mg/5 mL oral susp heartburn amlodipine 5 mg tablet 5 mg PO QAM 04/04/25 04/04/25 cetirizine 5 mg tablet 5 mg PO DAILY 04/04/25 04/04/25 divalproex 125 mg capsule,delayed 125 mg PO TID 04/04/25 04/04/25 release sprinkle furosemide 20 mg tablet 20 mg PO QAM 04/04/25 04/04/25 magnesium hydroxide 400 mg/5 mL See Rx Instructions .Route 04/04/25 04/04/25 oral suspension (Milk of Magnesia) .COMPLEX PRN Constipation memantine 5 mg tablet 5 mg PO BID 04/04/25 04/04/25 olanzapine 10 mg intramuscular 5 mg IM BID PRN Agitation 04/04/25 04/04/25 solution ondansetron HCl 4 mg tablet 4 mg PO Q6H PRN Nausea 04/04/25 04/04/25 potassium chloride 10 mEq 10 meq PO DAILY 04/04/25 04/04/25 tablet,extended release tramadol 50 mg tablet 50 mg PO DAILY PRN Pain 04/04/25 04/04/25 zolpidem 5 mg tablet 5 mg PO BEDTIME 04/04/25 04/04/25 Previous Rx's ?Medication ?Instructions ?Recorded lorazepam 0.5 mg tablet 0.5 mg PO TID PRN anxiety #60 tabs 02/01/24 Allergies Allergy/AdvReac Type Severity Reaction Status Date / Time Iodinated Contrast Media Allergy ALGY-Rash Verified 03/07/24 16:23 Review of Systems General: Reports: ROS unobtainable due to mental status (chronic dementia) Const: Reports: fever(s) Musc: Reports: extremity pain PFSH ED PFSH: Medical History Vitamin B12 deficiency History of breast cancer Glucose intolerance CKD (chronic kidney disease) Hyperparathyroidism Carotid stenosis, bilateral Hyperlipidemia Essential hypertension Aortic valve disease Aortic sclerosis Anxiety Palpitations Atelectasis Gout Rectocele GERD (gastroesophageal reflux disease) Surgical History S/P knee replacement S/P lumpectomy, right breast S/P parathyroidectomy S/P hysterectomy S/P tonsillectomy Family History Brother Hypertension Sister Cancer BREAST Father Myocardial infarction Mother , AGE 75 Histoplasmosis Social History Smoking and tobacco/nicotine status: never used tobacco/nicotine Second hand smoke exposure: No Alcohol intake: never Substance/Drug Use: never Adopted: No Caregiver/support person: Yes Lives independently: Yes Household members: family Housing: House Marital status: / Number of children: 1 service: No Current occupational status: retired Do you think of yourself as: Straight/Heterosexual Current gender identity: Female Physical Exam Const: COMMON NORMALS: no acute distress, average body habitus, alert and well nourished GENERAL APPEARANCE: cooperative ORIENTATION/CONSCIOUSNESS: Yes awake and Yes oriented to person HENMT: COMMON NORMALS: normocephalic and atraumatic HEAD & SCALP: normal to inspection, normocephalic and atraumatic Resp: COMMON NORMALS: normal respiratory effort and clear to auscultation bilaterally AUSCULTATION: clear to auscultation bilaterally Cardio: COMMON NORMALS: regular rate and regular rhythm RATE: regular rate RHYTHM: regular rhythm Back/Pelvis: COMMON NORMALS: thoracic and lumbar spine normal to inspection and no thoracic nor lumbar tenderness Extremity: GENERAL: Yes normal exam except as noted OTHER: both legs are warm/normal temp with good cap refill and distal pulses; there are no obvious deformities to either; she does have some mild edema to her left knee; she has fairly good ROM of her L hip and L knee passively without much discomfort; she seems much more tender on the right and complains of knee pain here with passive ROM of the limb Neuro: COMMON NORMALS: moves all extremities, no focal motor deficits and no sensory deficits noted SENSORIUM/ORIENTATION: Yes alert and Yes oriented to person Skin: COMMON NORMALS: no rashes or lesions noted GENERAL SKIN EXAM: no rashes or lesions noted Course Vital Signs: Vital signs: Vital Signs Temperature 98.3 F 04/04/25 10:29 Pulse Rate 108 H 04/04/25 10:29 Respiratory Rate 14 04/04/25 10:29 Blood Pressure 141/75 04/04/25 10:29 Pulse Oximetry 98 04/04/25 10:29 Oxygen Delivery Me thod Room Air 04/04/25 10:29 MDM - Extremity (Nontraumatic) Medical Decision Making Patient has not had any known injury/trauma. Legs are NV intact. XRs of her hips, knees, ankles obtained and are unremarkable. She has chronic hardware, degenerative changes, severe osteoarthritis. She will be allowed discharge back to her jail. It appears she already takes Tramadol for pain. Medical Records I reviewed the patient's medical records. Lab Data Radiology Impressions Ankle X-Ray 04/04/25 10:53 IMPRESSION: No acute abnormality. Hip/Pelvis X-Ray 04/04/25 10:53 IMPRESSION: No acute abnormality identified. Severe osteoarthritis of the right hip joint. LEFT HIP: Significantly decreased bone density. Femoral neck and intertrochanteric region appear intact with contiguous cortical margins. No findings of occult subcapital or intertrochanteric fracture. Minimal narrowing of the posterior inferior joint space for age with mild subchondral sclerosis and osteophytosis of the acetabulum. Superior and inferior pubic rami are intact. The acetabulum appears intact. Left sacral wing and iliac wing are intact. IMPRESSION: No acute abnormality identified. Minimal osteoarthritis for age. Knee X-Ray 04/04/25 10:53 IMPRESSION: No acute abnormality. Significant osteoarthritis of the left knee. All radiology interpretation(s) finalized by discharge Discharge Plan Discharge Patient Disposition: Home Clinical Impression: Leg pain, bilateral Condition: Stable Prescriptions: No Action loperamide [Anti-Diarrheal (loperamide)] 2 mg capsule See Rx Instructions .ROUTE .COMPLEX PRN (Reason: Constipation) Rx Instructions: Take 2 capsules by mouth after first loose stool, then 1 capsule after each loos stool, Not to exceed 7 capsules in 24 hours. If loose stools are accompanied by abdominal pain, fever, or bloody stools, alert MD. olanzapine 5 mg tablet 5 mg PO BID bisacodyl 10 mg suppository 10 mg ND DAILY PRN (Reason: Constipation) lorazepam 0.5 mg tablet 0.5 mg PO TID PRN (Reason: anxiety) Qty: 60 0RF cetirizine 5 mg Tablet 5 mg PO DAILY ondansetron HCl [Zofran] 4 mg Tablet 4 mg PO Q6H PRN (Reason: Nausea) potassium chloride 10 mEq Tablet Extended Release 10 meq PO DAILY amlodipine 5 mg tablet 5 mg PO QAM tramadol 50 mg tablet 50 mg PO DAILY PRN (Reason: Pain) acetaminophen 500 mg Tablet 500 mg PO Q6H PRN (Reason: Pain) magnesium hydroxide [Milk of Magnesia] 400 mg/5 mL Suspension See Rx Instructions .ROUTE .COMPLEX PRN (Reason: Constipation) Rx Instructions: Take 30ml by mouth if no bm in 3 days or for complaint of constipation. If no bm in 12 hours after taking initial 30ml, Give rectal suppository. furosemide 20 mg tablet 20 mg PO QAM alum-mag hydroxide-simeth [Mylanta] 200-200-20 mg/5 mL Suspension 30 ml PO Q4H PRN (Reason: upset stomach or heartburn) Rx Instructions: administer between meals and at bedtime divalproex 125 mg capsule, delayed rel sprinkle 125 mg PO TID memantine 5 mg tablet 5 mg PO BID olanzapine [Zyprexa] 10 mg Recon Soln 5 mg IM BID PRN (Reason: Agitation) Rx Instructions: administer doses at least 2 - 4 hours apart zolpidem 5 mg tablet 5 mg PO BEDTIME Discharge Orders: Discharge ED (Routine); Ordered 04/04/25 Ordered By: Leena Silveira Referrals: Cassius Herrera DO [Primary Care Provider, Family Practice] Patient Instructions: Patient Portal & Missy Instructions Activity Restrictions/Additional Instructions: X-rays were obtained of patient's bilateral hips and lower extremities. There were no acute fractures reported. She does have significant osteoarthritis. At this time recommend she follow-up with the provider through her assisted living facility to treat her leg pain. Print Language: Azerbaijani Coding Level of Care Code ED Banking Representative for Koko Pandya
--- NOTE | 2025-04-04 10:53 | XR_ITS ---
WS: [email or web address] XR ankle LT min 3V* [id number] REASON FOR EXAM: pain; get to mid tib/fib FINDINGS: Significant decrease in bone density. No acute fracture identified. The joint spaces of the left ankle are intact. No radiopaque soft tissue foreign body. XR/XR ankle LT min 3V* [id number] IMPRESSION: No acute abnormality.
--- NOTE | 2025-04-04 10:53 | XR_ITS ---
WS: [email or web address] XR ankle RT min 3V* [id number] REASON FOR EXAM: pain; get to mid tib/fib FINDINGS: Significantly decreased bone density. Screw fixation of remote medial malleolar fracture. No acute fracture identified. Joint spaces of the ankle are intact and relatively well preserved. XR/XR ankle RT min 3V* [id number] IMPRESSION: No acute abnormality.
--- NOTE | 2025-04-04 10:53 | XR_ITS ---
WS: [email or web address] XR knee RT 3V* [id number] REASON FOR EXAM: pain; get to mid tib/fib FINDINGS: Significantly decreased bone density. Posterior cruciate substituting TKA. The components of the arthroplasty are intact and in proper position and alignment unchanged compared to 09/30/2019. No acute bone abnormality. XR/XR knee RT 3V* [id number] IMPRESSION: TKA as above without acute abnormality.
--- NOTE | 2025-04-04 10:53 | XR_ITS ---
WS: [email or web address] XR knee LT 3V* [id number] REASON FOR EXAM: pain; get to mid tib/fib FINDINGS: Significantly decreased bone density. No acute fracture. Significant osteoarthritis in the medial knee joint compartment with near [id number] articulation and significant subchondral sclerosis and marginal osteophytosis. Patella and patellofemoral joint space intact with mild subchondral sclerosis and osteophytosis of the patella. XR/XR knee LT 3V* [id number] IMPRESSION: No acute abnormality. Significant osteoarthritis of the left knee.
--- NOTE | 2025-04-04 10:53 | XR_ITS ---
WS: [id number] XR hip BI 3-4V wo/w pel [id number] REASON FOR EXAM: pain FINDINGS: RIGHT HIP: Significantly decreased bone density. Femoral neck and intertrochanteric region appear intact with contiguous cortical margins. No findings of occult subcapital or intertrochanteric fracture. There is severe osteoarthritis with loss of the superior anterior joint space, [id number] articulation. Significant osteophytosis of the femoral head. Loose body within the hip joint. Superior and inferior pubic rami are intact. The acetabulum appears intact. Right sacral wing and right iliac wing are intact. XR/XR hip BI 3-4V wo/w pel [id number] IMPRESSION: No acute abnormality identified. Severe osteoarthritis of the right hip joint. LEFT HIP: Significantly decreased bone density. Femoral neck and intertrochanteric region appear intact with contiguous cortica l margins. No findings of occult subcapital or intertrochanteric fracture. Minimal narrowing of the posterior inferior joint space for age with mild subch ondral sclerosis and osteophytosis of the acetabulum. Superior and inferior pubic rami are intact. The acetabulum appears intact. Lef t sacral wing and iliac wing are intact. IMPRESSION: No acute abnormality identified. Minimal osteoarthritis for age.
--- NOTE | 2025-04-04 11:03 | PC.PHAR ---
Pt is from [facility]
[2025-04-04 14:43] VITALS: BP 150/92; PULSE 97; O2SAT 98
[2025-04-04 14:44] VITALS: BP 150/92; PULSE 97; O2SAT 98
== END 2025-04-04 14:53 | disposition home or self-care (01) ==
PROVIDERS: Emergency Provider Physician Assistant; PCP Family Medicine
DX: M79.604 Pain in right leg (principal); M79.605 Pain in left leg; E78.5 Hyperlipidemia, unspecified; I12.9 Hypertensive chronic kidney disease with stage 1 through stage 4 chronic kidney disease, or unspecified chronic kidney disease; N18.9 Chronic kidney disease, unspecified
CPT/HCPCS: 73522; 73562; 73610; 99284

== ENCOUNTER 2025-07-04 19:49 | Outpatient (CLI) | payer MEDICARE, OTHER, SELFPAY ==
[2025-07-04 20:06] LABS: Glucose Urine UA Negative (Normal); Nitrate Urine Negative (Negative); Specific Gravity, Urine 1.012 (1.005-1.030)
[2025-07-04 20:53] LABS: Add Urine Microscopic? YES; UA Slide Review UA Slide Review Perf
== END 2025-07-04 19:50 | disposition home or self-care (01) ==
PROVIDERS: PCP Family Medicine; Visit Provider Family Medicine
DX: N39.0 Urinary tract infection, site not specified (principal)
CPT/HCPCS: 81001; 87086

== ENCOUNTER 2025-10-02 14:07 | Outpatient (CLI) | payer MEDICARE, OTHER, SELFPAY ==
[2025-10-02 14:21] LABS: Glucose Urine UA Negative (Normal); Nitrate Urine Negative (Negative); Specific Gravity, Urine 1.013 (1.005-1.030)
[2025-10-02 14:26] LABS: Add Urine Microscopic? YES
== END 2025-10-02 14:08 | disposition home or self-care (01) ==
LOC: LAB 14:11
PROVIDERS: PCP Family Medicine; Visit Provider Family Medicine
DX: N39.0 Urinary tract infection, site not specified (principal)
CPT/HCPCS: 81001; 87086